=== PATIENT | female | born 1965 | race Caucasian/White ===

== ENCOUNTER 2018-07-23 09:55 | Emergency (ER) | payer OTHER ==
[2018-07-23] MEDS ORDERED: Sodium Chloride 0.9% 2.5 ML Syringe FLUSH PRN (10:05)
[2018-07-23] MEDS ORDERED: Sodium Chloride 0.9% 10 ML Syringe FLUSH PRN (10:05)
[2018-07-23] MEDS ORDERED: Diltiazem 25 MG/5 ML SDV IVPUSH ONE ×3 (10:09→11:36)
[2018-07-23] MEDS ORDERED: Aspirin 81 MG Tab.Chew PO ONE (10:15)
--- NOTE | 2018-07-23 10:15 | EDM.PDOC ---
ED HPI GENERAL MEDICAL PROBLEM - General Chief Complaint: Cardiovascular Problem Stated Complaint: SHORTNESS OF BREATH Time Seen by Provider: 07/23/18 09:58 Source of Information: Reports: Patient History Limitations: Reports: No Limitations - History of Present Illness INITIAL COMMENTS - FREE TEXT/NARRATIVE: History of present illness: []Patient has been complaining of fatigue, shortness of breath, nausea and sweating for the past week. She was seen at [facility] on July 21 and labs were ordered. Labs resulted yesterday and she followed up with Dr. Castillo at [facility] this morning and was found to be in A. fib with rapid ventricular rate in the 140s/150s. She was sent to the ER she arrives here complaining of shortness of breath with minimal exertion which is not normal for her. Patient denies any chest pain, recent illnesses, cough, fevers, chills , nausea, vomiting or diarrhea. She denies any cardiac history but has been treated with propranolol for mild hypertension. She does not take an aspirin a day. Review of systems: As per history of present illness and below otherwise all systems reviewed and negative. Past medical history: As per history of present illness and as reviewed below otherwise noncontributory. Surgical history: As per history of present illness and as reviewed below otherwise noncontributory. Social history: No reported history of drug or alcohol abuse. Family history: As per history of present illness and as reviewed below otherwise noncontributory. Physical exam: General: Well developed, well nourished in NAD HEENT: Atraumatic, normocephalic, pupils reactive, negative for conjunctival pallor or scleral icterus, mucous membranes moist, throat clear, neck supple, nontender, trachea midline. Lungs: Clear to auscultation, breath sounds equal bilaterally, chest nontender. Heart: S1S2, regular, negative for clicks, rubs, or JVD. Abdomen: Soft, nondistended, nontender. Negative for masses or hepatosplenomegaly. Negative for costovertebral tenderness. Pelvis: Stable nontender. Genitourinary: Deferred Rectal: Deferred. Extremities: Atraumatic, negative for cords or calf pain. Neurovascular unremarkable. Neuro: Awake, alert, oriented. Cranial nerves II through XII unremarkable. Cerebellum unremarkable. Motor and sensory unremarkable throughout. Exam nonfocal. Skin:warm and dry Diagnostics: EKG, chest x-ray, BNP, troponin, chemistry Therapeutics: Diltiazem, aspirin ED Course: Improved with rate down to 80s and BP 125/80's Impression: A. fib with rapid ventricular rate Prescriptions: Several toe, diltiazem Plan: Dr. Cabrera was consulted and agrees with plan he will he will follow-up with the patient in 3 days and work her up as needed. Definitive disposition and diagnosis as appropriate pending reevaluation and review of above. - Related Data Allergies Allergy/AdvReac Type Severity Reaction Status Date / Time No Known Allergies Allergy Verified 07/23/18 10:04 Home Meds: Home Meds Multivitamin [Multi-Vitamin Daily] 1 tab PO DAILY 07/27/14 [History] Omeprazole [Prilosec] 1 tab PO BRK 07/27/14 [History] Propranolol [Inderal] 1 tab PO ACBRK 07/27/14 [History] Venlafaxine [Effexor XR] 150 mg PO DAILY 07/27/14 [History] Diltiazem HCl [Dilt-XR] 120 mg PO DAILY #15 cap.er.deg 07/23/18 [Rx] Rivaroxaban [Xarelto] 20 mg PO ACDINNER #15 tablet 07/23/18 [Rx] Past Medical History Cardiovascular History: Reports: Hypertension Gastrointestinal History: Reports: GERD 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 ED EXAM, GENERAL - Physical Exam Exam: See Below (See history of present illness) Course - Vital Signs Last Recorded V/S: Last Vital Signs Temp 95.5 F 07/23/18 10:00 Pulse 108 H 07/23/18 11:21 Resp 16 07/23/18 11:21 BP 125/81 07/23/18 11:21 Pulse Ox 97 07/23/18 11:21 - Orders/Labs/Meds Orders: Active Orders 24 hr Category Date Time Status Cardiac Monitoring [RC] . DIRECTED Care 07/23/18 10:37 Active EKG Documentation Completion [RC] STAT Care 07/23/18 10:05 Active EKG Documentation Completion [RC] STAT Care 07/23/18 11:08 Active Sodium Chloride 0.9% [Saline Flush] Med 07/23/18 10:05 Active 10 ml FLUSH ASDIRECTED PRN Sodium Chloride 0.9% [Saline Flush] Med 07/23/18 10:05 Active 2.5 ml FLUSH ASDIRECTED PRN Saline Lock Insert [OM.PC] Stat Oth 07/23/18 10:05 Ordered Medication Orders Sodium Chloride (Saline Flush) 10 ml FLUSH ASDIRECTED PRN PRN Reason: Keep Vein Open Last Admin: 07/23/18 10:23 Dose: 10 ml Sodium Chloride (Saline Flush) 2.5 ml FLUSH ASDIRECTED PRN PRN Reason: Keep Vein Open Last Admin: 07/23/18 10:23 Dose: 2.5 ml Labs: Laboratory Tests 07/23/18 07/23/18 Range/Units 10:25 10:25 Sodium 142 (136-145) mmol/L Potassium 4.2 (3.5-5.1) mmol/L Chloride 108 H (98-107) mmol/L Carbon Dioxide 22.9 (21.0-32.0) mmol/L BUN 18 (7.0-18.0) mg/dL Creatinine 0.9 (0.6-1.0) mg/dL Est Cr Clr Drug Dosing 74.55 mL/min Estimated GFR (MDRD) > 60.0 ml/min Glucose 121 H (74-106) mg/dL Calcium 10.0 (8.5-10.1) mg/dL Total Bilirubin 0.4 (0.2-1.0) mg/dL AST 24 (15-37) IU/L ALT 57 (14-63) IU/L Alkaline Phosphatase 102 (46-116) U/L Troponin I < 0.050 (0.000-0.056) ng/mL B-Natriuretic Peptide 1106 H (<100) PG/ML Total Protein 7.4 (6.4-8.2) g/dL Albumin 3.8 (3.4-5.0) g/dL Globulin 3.6 H (2.0-3.5) g/dL Albumin/Globulin Ratio 1.1 L (1.3-2.8) Meds: Medications Generic Name Dose Route Start Last Admin Trade Name Freq PRN Reason Stop Dose Admin Sodium Chloride 10 ml 07/23/18 10:05 07/23/18 10:23 Saline Flush FLUSH 10 ml ASDIRECTED PRN Administration Keep Vein Open Sodium Chloride 2.5 ml 07/23/18 10:05 07/23/18 10:23 Saline Flush FLUSH 2.5 ml ASDIRECTED PRN Administration Keep Vein Open Discontinued Medications Generic Name Dose Route Start Last Admin Trade Name Freq PRN Reason Stop Dose Admin Aspirin 324 mg 07/23/18 10:15 07/23/18 10:28 Aspirin PO 07/23/18 10:16 324 mg ONETIME ONE Administration Diltiazem HCl 20 mg 07/23/18 10:09 07/23/18 10:23 Diltiazem IVPUSH 07/23/18 10:10 20 mg ONETIME ONE Administration Diltiazem HCl 15 mg 07/23/18 11:25 07/23/18 11:38 Diltiazem IVPUSH 07/23/18 11:26 Not Given ONETIME ONE Diltiazem HCl 20 mg 07/23/18 11:36 07/23/18 11:37 Diltiazem IVPUSH 07/23/18 11:37 20 mg ONETIME ONE Administration Departure - Departure Time of Disposition: 11:59 Disposition: Home, Self-Care 01 Condition: Good Clinical Impression: Atrial fibrillation with RVR Prescriptions: Diltiazem HCl [Dilt-XR] 120 mg PO DAILY #15 cap.er.deg Rivaroxaban [Xarelto] 20 mg PO ACDINNER #15 tablet Referrals: PCP,None [Primary Care Provider] - Forms: ED Department Discharge Additional Instructions: The following information is given to patients seen in the emergency department who are being discharged to home. This information is to outline your options for follow-up care. We provide all patients seen in our emergency department with a follow-up referral. The need for follow-up, as well as the timing and circumstances, are variable depending upon the specifics of your emergency department visit. If you don't have a primary care physician on staff, we will provide you with a referral. We always advise you to contact your personal physician following an emergency department visit to inform them of the circumstance of the visit and for follow-up with them and/or the need for any referrals to a consulting specialist. The emergency department will also refer you to a specialist when appropriate. This referral assures that you have the opportunity for follow-up care with a specialist. All of these measure are taken in an effort to provide you with optimal care, which includes your follow-up. Under all circumstances we always encourage you to contact your private physician who remains a resource for coordinating your care. When calling for follow-up care, please make the office aware that this follow-up is from your recent emergency room visit. If for any reason you are refused follow-up, please contact the [facility] Emergency Department at and asked to speak to the emergency department charge nurse. Take meds as directed and follow-up with cardiology, return if symptoms worsen or change. [facility] Dr. Drake. [place] [address] [address] [phone] - My Orders Last 24 Hours: My Active Orders 07/23/18 10:05 EKG Documentation Completion [RC] STAT Sodium Chloride 0.9% [Saline Flush] 10 ml FLUSH ASDIRECTED PRN Sodium Chloride 0.9% [Saline Flush] 2.5 ml FLUSH ASDIRECTED PRN Saline Lock Insert [OM.PC] Stat 07/23/18 10:37 Cardiac Monitoring [RC] . DIRECTED 07/23/18 11:08 EKG Documentation Completion [RC] STAT - Assessment/Plan Last 24 Hours: My Active Orders 07/23/18 10:05 EKG Documentation Completion [RC] STAT Sodium Chloride 0.9% [Saline Flush] 10 ml FLUSH ASDIRECTED PRN Sodium Chloride 0.9% [Saline Flush] 2.5 ml FLUSH ASDIRECTED PRN Saline Lock Insert [OM.PC] Stat 07/23/18 10:37 Cardiac Monitoring [RC] . DIRECTED 07/23/18 11:08 EKG Documentation Completion [RC] STAT
[2018-07-23 11:17] LABS: CHLORIDE,CL 108 mmol/L (98-107); SODIUM,NA 142 mmol/L (136-145)
--- NOTE | 2018-07-23 11:30 | CR ---
EXAMINATION: Portable chest radiograph. HISTORY: Shortness of breath. FINDINGS: The trachea is midline. The cardiomediastinal silhouette is within normal limits. No pulmonary infiltrates, effusions or pneumothorax. Osseous structures appear unremarkable. IMPRESSION: No acute cardiopulmonary process.
[2018-07-23 12:22] VITALS: BP 125/76
== END 2018-07-23 12:18 | disposition home or self-care (01) ==
LOC: MW.ED 09:55
DX: I48.91 Unspecified atrial fibrillation (principal); I10 Essential (primary) hypertension; Z79.899 Other long term (current) drug therapy
CPT/HCPCS: 36415; 71045; 80053; 83880; 84484; 93005; 96374; 96375; 99285; A9270; J3490; 99283

== ENCOUNTER 2020-02-08 11:11 | Inpatient (IN) | payer OTHER ==
[2020-02-08] MEDS ORDERED: Diltiazem 25 MG/5 ML SDV IVPUSH ONE ×2 (11:22→14:54)
[2020-02-08] MEDS ORDERED: Diltiazem 25 MG/5 ML SDV ONE ×2 (11:24→15:13)
[2020-02-08 12:14] LABS: BLOOD UREA NITROGEN,BUN 19 mg/dL (7.0-18.0); CARBON DIOXIDE,CO2 25.8 mmol/L (21.0-32.0); CHLORIDE,CL 104 mmol/L (98-107); GLUCOSE RANDOM 114 mg/dL (74-106); POTASSIUM,K 4.3 mmol/L (3.5-5.1); SODIUM,NA 141 mmol/L (136-145)
--- NOTE | 2020-02-08 12:40 | CR ---
Chest: Portable view of the chest was obtained. Comparison: No prior chest imaging is available. Heart size and mediastinum are within normal limits for portable technique. Lungs are clear with no acute parenchymal change. Bony structures are grossly intact. Impression: 1. Nothing acute is appreciated on portable chest x-ray. Diagnostic code #1 This report was dictated in MDT
[2020-02-08] MEDS ORDERED: Diltiazem 125 MG in Sodium Chloride 0.9% 100 ML IV SCH (13:30)
--- NOTE | 2020-02-08 13:34 | EDM.PDOC ---
ED HPI GENERAL MEDICAL PROBLEM - General Chief Complaint: Cardiovascular Problem Stated Complaint: HIGH BP Time Seen by Provider: 02/08/20 11:13 Source of Information: Reports: Patient History Limitations: Reports: No Limitations - History of Present Illness INITIAL COMMENTS - FREE TEXT/NARRATIVE: This 54-year-old female presents to the emergency room with a chief complaint of rapid heart rate and shortness of breath with exertion Onset: Today Duration: Hour(s):, Day(s): (2), Intermittent Location: Reports: Chest Quality: Reports: Other (Not complaining of any chest pain) Worsens with: Reports: None Associated Symptoms: Reports: No Other Symptoms - Related Data Allergies Allergy/AdvReac Type Severity Reaction Status Date / Time No Known Allergies Allergy Verified 02/08/20 11:18 Home Meds: Home Meds Multivitamin [Multi-Vitamin Daily] 1 tab PO DAILY 07/27/14 [History] Omeprazole [Prilosec] 40 tab PO BRK 07/27/14 [History] Venlafaxine [Effexor XR] 150 mg PO DAILY 07/27/14 [History] Furosemide [Lasix] 40 mg PO DAILY 08/02/18 [History] Digoxin [Digox] 125 mcg PO DAILY 30 Days #30 tablet 08/06/18 [Rx] Diltiazem [Cardizem CD] 120 mg PO BID 30 Days #60 cap.cd 08/06/18 [Rx] Enoxaparin [Lovenox] 150 mg SQ BID 5 Days #10 syringe 08/06/18 [Rx] Levothyroxine 25 mcg PO ACBREAKFAST 30 Days #30 tablet 08/06/18 [Rx] Metoprolol Tartrate [Lopressor] 75 mg PO TID 30 Days #270 tablet 08/06/18 [Rx] Warfarin [Coumadin] 3 mg PO DAILY 30 Days #30 tab 08/06/18 [Rx] Past Medical History Cardiovascular History: Reports: Afib, Hypertension, Other (See Below) Other Cardiovascular History: CHF Respiratory History: Reports: Sleep Apnea Gastrointestinal History: Reports: GERD 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: , 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 (See Below) 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 Psychiatric History: Reports: Anxiety, Depression - Infectious Disease History Infectious Disease History: Reports: Chicken Pox - Past Surgical History Cardiovascular Surgical History: Reports: Cardiac Ablation Respiratory Surgical History: Reports: None Female Surgical History: Reports: Hysterectomy Social & Family History - Family History Family Medical History: Noncontributory - Tobacco Use Smoking Status *Q: Never Smoker - Caffeine Use Caffeine Use: Reports: None - Recreational Drug Use Recreational Drug Use: No ED ROS GENERAL - Review of Systems Review Of Systems: See Below Constitutional: Reports: No Symptoms HEENT: Reports: No Symptoms Respiratory: Reports: No Symptoms Cardiovascular: Reports: No Symptoms, Dyspnea on Exertion Endocrine: Reports: No Symptoms GI/Abdominal: Reports: No Symptoms : Reports: No Symptoms Musculoskeletal: Reports: No Symptoms Skin: Reports: No Symptoms Neurological: Reports: No Symptoms Psychiatric: Reports: No Symptoms Hematologic/Lymphatic: Reports: No Symptoms Immunologic: Reports: No Symptoms ED EXAM, GENERAL - Physical Exam Exam: See Below Exam Limited By: No Limitations General Appearance: Alert, WD/WN, No Apparent Distress Eye Exam: Bilateral Eye: Normal Fundi, Normal Inspection Ear Exam: Bilateral Ear: Auricle Normal, Canal Normal Nose: Normal Inspection, Normal Mucosa, No Blood Throat/Mouth: Normal Inspection, Normal Lips Respiratory/Chest: No Respiratory Distress, Lungs Clear, Normal Breath Sounds, No Accessory Muscle Use, Chest Non-Tender Cardiovascular: Normal Peripheral Pulses, Regular Rate, Rhythm, No Edema, No JVD , No Murmur, Irregularly Irregular GI/Abdominal: Normal Bowel Sounds, Soft, Non-Tender Back Exam: Normal Inspection, Full Range of Motion Extremities: Normal Inspection, Normal Range of Motion, Non-Tender Neurological: Alert, Oriented, CN II-XII Intact, Normal Cognition, Normal Gait, Normal Reflexes, No Motor/Sensory Deficits Psychiatric: Normal Affect, Normal Mood Skin Exam: Warm, Dry, Intact, Normal Color Lymphatic: No Adenopathy EKG INTERPRETATION Rhythm: A-Fib (A. fib rate around 130) Course - Vital Signs Last Recorded V/S: Last Vital Signs Temp 97.2 F 02/08/20 11:18 Pulse 130 H 02/08/20 11:35 Resp 18 02/08/20 11:35 BP 150/85 H 02/08/20 11:35 Pulse Ox 96 02/08/20 11:35 - Orders/Labs/Meds Orders: Active Orders 24 hr Category Date Time Status EKG 12 Lead [EKG Documentation Completion] [RC] ROUTINE Care 02/08/20 11:27 Active Diltiazem 125 mg Med 02/08/20 13:30 Active Sodium Chloride 0.9% [Normal Saline] 100 ml IV NOW Medication Orders Diltiazem HCl 125 mg/ Sodium (Chloride) 125 mls @ 5 mls/hr IV NOW GELY; Protocol Labs: Laboratory Tests 02/08/20 02/08/20 02/08/20 Range/Units 11:15 11:15 11:15 WBC 7.73 (4.0-11.0) K/uL RBC 5.24 (4.30-5.90) M/uL Hgb 14.0 (12.0-16.0) g/dL Hct 44.7 (36.0-46.0) % MCV 85.3 (80.0-98.0) fL MCH 26.7 L (27.0-32.0) pg MCHC 31.3 (31.0-37.0) g/dL RDW Std Deviation 47.9 (28.0-62.0) fl RDW Coeff of Saira 15 (11.0-15.0) % Plt Count 345 (150-400) K/uL MPV 10.70 (7.40-12.00) fL Neut % (Auto) 64.3 (48.0-80.0) % Lymph % (Auto) 24.6 (16.0-40.0) % Floyd % (Auto) 7.6 (0.0-15.0) % Eos % (Auto) 3.0 (0.0-7.0) % Baso % (Auto) 0.5 (0.0-1.5) % Neut # (Auto) 5.0 (1.4-5.7) K/uL Lymph # (Auto) 1.9 (0.6-2.4) K/uL Floyd # (Auto) 0.6 (0.0-0.8) K/uL Eos # (Auto) 0.2 (0.0-0.7) K/uL Baso # (Auto) 0.0 (0.0-0.1) K/uL Nucleated RBC % 0.0 /100WBC Nucleated RBCs # 0 K/uL INR 1.00 Sodium 141 (136-145) mmol/L Potassium 4.3 (3.5-5.1) mmol/L Chloride 104 (98-107) mmol/L Carbon Dioxide 25.8 (21.0-32.0) mmol/L BUN 19 H (7.0-18.0) mg/dL Creatinine 1.1 H (0.6-1.0) mg/dL Est Cr Clr Drug Dosing 60.39 mL/min Estimated GFR (MDRD) 51.6 ml/min Glucose 114 H (74-106) mg/dL Calcium 9.4 (8.5-10.1) mg/dL Total Bilirubin 0.3 (0.2-1.0) mg/dL AST 20 (15-37) IU/L ALT 43 (14-63) IU/L Alkaline Phosphatase 107 (46-116) U/L Troponin I < 0.050 (0.000-0.056) ng/mL Total Protein 8.1 (6.4-8.2) g/dL Albumin 4.2 (3.4-5.0) g/dL Globulin 3.9 (2.6-4.0) g/dL Albumin/Globulin Ratio 1.1 (0.9-1.6) Meds: Medications Generic Name Dose Route Start Last Admin Trade Name Freq PRN Reason Stop Dose Admin Diltiazem HCl 125 mg/ Sodium 125 mls @ 5 mls/hr 02/08/20 13:30 Chloride IV NOW GELY Protocol 5 MG/HR Discontinued Medications Generic Name Dose Route Start Last Admin Trade Name Freq PRN Reason Stop Dose Admin Diltiazem HCl 20 mg 02/08/20 11:22 02/08/20 11:31 Diltiazem IVPUSH 02/08/20 11:23 20 mg ONETIME ONE Administration Diltiazem HCl Confirm 02/08/20 11:24 02/08/20 11:34 Diltiazem Administered 02/08/20 11:25 Not Given Dose 25 mg .ROUTE .STK-MED ONE Departure - Departure Time of Disposition: 13:33 Disposition: Admitted As Inpatient 65 Condition: Fair Clinical Impression: Atrial fibrillation with rapid ventricular response Referrals: PCP,Unobtain [Primary Care Provider] - Sepsis Event Note - Evaluation Sepsis Screening Result: No Definite Risk - Focused Exam Vital Signs: Vital Signs Temp Pulse Resp BP Pulse Ox 02/08/20 11:35 130 H 18 150/85 H 96 02/08/20 11:18 97.2 F 138 H 18 193/103 H 97 Date Exam was Performed: 02/08/20 Time Exam was Performed: 13:29 - My Orders Last 24 Hours: My Active Orders 02/08/20 11:27 EKG 12 Lead [EKG Documentation Completion] [RC] ROUTINE 02/08/20 13:30 Diltiazem 125 mg Sodium Chloride 0.9% [Normal Saline] 100 ml IV NOW - Assessment/Plan Last 24 Hours: My Active Orders 02/08/20 11:27 EKG 12 Lead [EKG Documentation Completion] [RC] ROUTINE 02/08/20 13:30 Diltiazem 125 mg Sodium Chloride 0.9% [Normal Saline] 100 ml IV NOW
[2020-02-08] MEDS: Diltiazem 100 MG in Sodium Chloride 0.9% 100 ML IV SCH ×2 (13:54→19:52)
[2020-02-08] MEDS ORDERED: Heparin Sod,Pork In 0.45% Nacl 25,000 UNIT/500 ML IV.SOLN IV SCH ×2 (14:15→15:00)
[2020-02-08] MEDS ORDERED: Albuterol/Ipratropium 3.0-0.5 MG/3 ML Neb Soln NEB PRN (14:17)
--- NOTE | 2020-02-08 14:56 | PCM.HP.2 ---
H&P History of Present Illness - General Date of Service: 02/08/20 Admit Problem/Dx: Admission Diagnosis/Problem Admission Diagnosis/Problem Atrial fibrillation with rapid ventricular response - History of Present Illness Initial Comments - Free Text/Narative: Patient is a 54 y/o F with PMH of Afib s/p ablation 9 months back, HTN, sleep apnea comes in for evaluation of increased pulse rate that was showing on her smart watch and dyspnea on exertion. She states that she started noticing her pulse was higher than usual for past few weeks and today it was worse. In the ER patient was found to be in Afib RVR , with HR in 130s, received IV Cardizem but her HR continued to be high so was eventually started on IV Cardizem Gtt. Patient was formerly on Eliquis before ablation, Denied any chest pain, SOB, Palpitations, dizziness, syncope, N/V/D, abdominal pain, urinary frequency, urinary urgency. Onset of Symptoms: Reports: Gradual Duration of Symptoms: Reports: Day(s): - Related Data Allergies/Adverse Reactions: Allergies Allergy/AdvReac Type Severity Reaction Status Date / Time No Known Allergies Allergy Verified 02/09/20 07:53 Home Medications: Home Meds Multivitamin [Multi-Vitamin Daily] 1 tab PO DAILY 07/27/14 [History] Omeprazole [Prilosec] 40 tab PO BRK 07/27/14 [History] Venlafaxine [Effexor XR] 150 mg PO DAILY 07/27/14 [History] Aspirin [Adult Low Dose Aspirin EC] 81 mg PO DAILY 02/08/20 [History] Diltiazem [Cardizem CD] 120 mg PO DAILY 02/08/20 [History] Flecainide [Tambocor] 100 mg PO Q12H 02/08/20 [History] Levothyroxine Sodium [Synthroid] 25 mcg PO ACBREAKFAST 02/08/20 [History] Melatonin 10 mg PO BEDTIME 02/08/20 [History] Past Medical History Cardiovascular History: Reports: Afib, Hypertension, Other (See Below) Other Cardiovascular History: CHF Respiratory History: Reports: Sleep Apnea Gastrointestinal History: Reports: GER[employer] History: Reports: , Other (See Below) Other OB/BYN History: Hysterectomy Psychiatric History: Reports: Anxiety, Depression - Infectious Disease History Infectious Disease History: Reports: Chicken Pox - Past Surgical History Cardiovascular Surgical History: Reports: Cardiac Ablation Respiratory Surgical History: Reports: None Female Surgical History: Reports: Hysterectomy Social & Family History - Family History Family Medical History: Noncontributory - Tobacco Use Smoking Status *Q: Never Smoker - Caffeine Use Caffeine Use: Reports: None - Recreational Drug Use Recreational Drug Use: No H&P Review of Systems - Review of Systems: Review Of Systems: See Below General: Denies: Fever, Chills HEENT: Denies: Contact Lenses, Dysphasia Pulmonary: Denies: Shortness of Breath, Wheezing, Pleuritic Chest Pain Cardiovascular: Reports: Dyspnea on Exertion. Denies: Chest Pain, Palpitations , Orthopnea, PND Gastrointestinal: Denies: Abdominal Pain, Anorexia, Difficulty Swallowing Genitourinary: Denies: Dysuria, Frequency, Burning Skin: Denies: Cyanosis, Jaundice, Mottled Hematologic/Lymphatic: Denies: Anemia, Easy Bleeding Exam - Exam Exam: See Below - Vital Signs Vital Signs: Last Vital Signs Temp 36.2 C 02/08/20 11:18 Pulse 133 H 02/08/20 13:56 Resp 18 02/08/20 13:56 BP 154/85 H 02/08/20 13:56 Pulse Ox 98 02/08/20 13:56 Weight: 146.964 kg - Exam Quality Assessment: Supplemental Oxygen General: Alert, Oriented Neck: Supple, Trachea Midline Lungs: Clear to Auscultation, Normal Respiratory Effort Cardiovascular: Normal S1, Normal S2, Irregular Rhythm, Tachycardia GI/Abdominal Exam: Normal Bowel Sounds, Soft, Distended Extremities: Normal Inspection, Normal Range of Motion. No: Pedal Edema Peripheral Pulses: 3+: Dorsalis Pedis (L), Dorsalis Pedis (R) - Patient Data Lab Results Last 24 hrs: Laboratory Results - last 24 hr 02/08/20 02/08/20 02/08/20 Range/Units 11:15 11:15 11:15 WBC 7.73 (4.0-11.0) K/uL RBC 5.24 (4.30-5.90) M/uL Hgb 14.0 (12.0-16.0) g/dL Hct 44.7 (36.0-46.0) % MCV 85.3 (80.0-98.0) fL MCH 26.7 L (27.0-32.0) pg MCHC 31.3 (31.0-37.0) g/dL RDW Std Deviation 47.9 (28.0-62.0) fl RDW Coeff of Saira 15 (11.0-15.0) % Plt Count 345 (150-400) K/uL MPV 10.70 (7.40-12.00) fL Neut % (Auto) 64.3 (48.0-80.0) % Lymph % (Auto) 24.6 (16.0-40.0) % Mclean % (Auto) 7.6 (0.0-15.0) % Eos % (Auto) 3.0 (0.0-7.0) % Baso % (Auto) 0.5 (0.0-1.5) % Neut # (Auto) 5.0 (1.4-5.7) K/uL Lymph # (Auto) 1.9 (0.6-2.4) K/uL Mclean # (Auto) 0.6 (0.0-0.8) K/uL Eos # (Auto) 0.2 (0.0-0.7) K/uL Baso # (Auto) 0.0 (0.0-0.1) K/uL Nucleated RBC % 0.0 /100WBC Nucleated RBCs # 0 K/uL INR 1.00 Sodium 141 (136-145) mmol/L Potassium 4.3 (3.5-5.1) mmol/L Chloride 104 (98-107) mmol/L Carbon Dioxide 25.8 (21.0-32.0) mmol/L BUN 19 H (7.0-18.0) mg/dL Creatinine 1.1 H (0.6-1.0) mg/dL Est Cr Clr Drug Dosing 60.39 mL/min Estimated GFR (MDRD) 51.6 ml/min Glucose 114 H (74-106) mg/dL Calcium 9.4 (8.5-10.1) mg/dL Phosphorus (2.6-4.7) mg/dL Magnesium (1.8-2.4) mg/dL Total Bilirubin 0.3 (0.2-1.0) mg/dL AST 20 (15-37) IU/L ALT 43 (14-63) IU/L Alkaline Phosphatase 107 (46-116) U/L Troponin I < 0.050 (0.000-0.056) ng/mL Total Protein 8.1 (6.4-8.2) g/dL Albumin 4.2 (3.4-5.0) g/dL Globulin 3.9 (2.6-4.0) g/dL Albumin/Globulin Ratio 1.1 (0.9-1.6) 02/08/20 Range/Units 11:15 WBC (4.0-11.0) K/uL RBC (4.30-5.90) M/uL Hgb (12.0-16.0) g/dL Hct (36.0-46.0) % MCV (80.0-98.0) fL MCH (27.0-32.0) pg MCHC (31.0-37.0) g/dL RDW Std Deviation (28.0-62.0) fl RDW Coeff of Saira (11.0-15.0) % Plt Count (150-400) K/uL MPV (7.40-12.00) fL Neut % (Auto) (48.0-80.0) % Lymph % (Auto) (16.0-40.0) % Mclean % (Auto) (0.0-15.0) % Eos % (Auto) (0.0-7.0) % Baso % (Auto) (0.0-1.5) % Neut # (Auto) (1.4-5.7) K/uL Lymph # (Auto) (0.6-2.4) K/uL Mclean # (Auto) (0.0-0.8) K/uL Eos # (Auto) (0.0-0.7) K/uL Baso # (Auto) (0.0-0.1) K/uL Nucleated RBC % /100WBC Nucleated RBCs # K/uL INR Sodium (136-145) mmol/L Potassium (3.5-5.1) mmol/L Chloride (98-107) mmol/L Carbon Dioxide (21.0-32.0) mmol/L BUN (7.0-18.0) mg/dL Creatinine (0.6-1.0) mg/dL Est Cr Clr Drug Dosing mL/min Estimated GFR (MDRD) ml/min Glucose (74-106) mg/dL Calcium (8.5-10.1) mg/dL Phosphorus 3.5 (2.6-4.7) mg/dL Magnesium 2.3 (1.8-2.4) mg/dL Total Bilirubin (0.2-1.0) mg/dL AST (15-37) IU/L ALT (14-63) IU/L Alkaline Phosphatase (46-116) U/L Troponin I (0.000-0.056) ng/mL Total Protein (6.4-8.2) g/dL Albumin (3.4-5.0) g/dL Globulin (2.6-4.0) g/dL Albumin/Globulin Ratio (0.9-1.6) Result Diagrams: 02/08/20 11:15 02/09/20 05:52 Sepsis Event Note - Evaluation Sepsis Screening Result: No Definite Risk - Focused Exam Vital Signs: Vital Signs Temp Pulse Resp BP Pulse Ox 02/08/20 13:56 133 H 18 154/85 H 98 02/08/20 11:35 130 H 18 150/85 H 96 02/08/20 11:18 36.2 C 138 H 18 193/103 H 97 Date Exam was Performed: 02/09/20 Time Exam was Performed: 10:57 - Problem List (1) Sleep apnea SNOMED Code(s): 38410126 ICD Code: G47.30 - SLEEP APNEA, UNSPECIFIED Status: Acute Current Visit: Yes (2) HTN (hypertension) SNOMED Code(s): 93113543 ICD Code: I10 - ESSENTIAL (PRIMARY) HYPERTENSION Status: Acute Current Visit: Yes (3) Atrial fibrillation with RVR SNOMED Code(s): 560290586744316 ICD Code: I48.91 - UNSPECIFIED ATRIAL FIBRILLATION Status: Acute Current Visit: Yes Problem List Initiated/Reviewed/Updated: Yes Orders Last 24hrs: Active Orders 24 hr Category Date Time Status Admission Status [Patient Status] [ADT] Stat ADT 02/08/20 13:35 Active Ambulate [RC] ASDIRECTED Care 02/08/20 14:17 Active EKG 12 Lead [EKG Documentation Completion] [RC] ROUTINE Care 02/08/20 11:27 Active Oxygen Therapy [RC] CONTINUOUS Care 02/08/20 14:18 Active Pulse Oximetry [RC] PRN Care 02/08/20 14:18 Active RT Aerosol Therapy [RC] ASDIRECTED Care 02/08/20 14:21 Active VTE/DVT Education [RC] PER UNIT ROUTINE Care 02/08/20 14:18 Active Vital Signs [RC] Q4H Care 02/08/20 14:18 Active Heart Healthy Diet [DIET] Diet 02/08/20 Dinner Active Echo Comp wo Cont [US] Routine Exams 02/08/20 14:22 Ordered TROPONIN I [CHEM] Q3H Lab 02/08/20 14:22 Ordered TROPONIN I [CHEM] Q3H Lab 02/08/20 17:22 Ordered Albuterol/Ipratropium [DuoNeb 3.0-0.5 MG/3 ML] Med 02/08/20 14:17 Active 3 ml NEB Q4HRRT PRN Diltiazem [Cardizem] 100 mg Med 02/08/20 13:45 Active Sodium Chloride 0.9% [Normal Saline] 100 ml IV NOW Heparin Sod,Pork In 0.45% Nacl [Heparin-1/2Ns 25,000 Med 02/08/20 14:15 Active Units/500] 25,000 unit in 500 ml IV TITRATE Resuscitation Status Routine Resus Stat 02/08/20 14:17 Ordered Medication Orders Albuterol/Ipratropium (Duoneb 3.0-0.5 Mg/3 Ml) 3 ml NEB Q4HRRT PRN PRN Reason: Shortness Of Breath/wheezing Diltiazem HCl 100 mg/ Sodium (Chloride) 100 mls @ 5 mls/hr IV NOW GELY; Protocol Last Admin: 02/08/20 13:54 Dose: 5 mg/hr, 5 mls/hr Heparin Sodium/Sodium Chloride (Heparin-1/2ns 25,000 Units/500) 25,000 unit in 500 mls @ 56.4 mls/hr IV TITRATE GELY; Protocol Assessment/Plan Comment:: 54 y/o F admitted for AFib RVR Will cont Cardizem gtt for rate control Will obtain 2D ECHO BP is improving, cont to monitor cont Heparin gtt for anticoagulation Trend Troponin Monitor and replete electrolytes CPAP at night
[2020-02-08] MEDS ORDERED: Heparin Sodium 5,000 Units/ML Vial IVPUSH ONE (15:00)
[2020-02-08 15:23] LABS: HEMOGLOBIN A1C 6.1 % (4.5-6.2)
[2020-02-08] MEDS ORDERED: Diltiazem 25 MG/5 ML SDV IV ONE (15:54)
[2020-02-08] MEDS: Metoprolol Tartrate 50 MG Tab PO SCH ×2 (16:02→21:43)
[2020-02-08] MEDS: Apixaban 5 MG Tab PO SCH ×2 (16:02→21:43)
[2020-02-08] MEDS ORDERED: Metoprolol Tartrate 5 MG/5 ML SDV IVPUSH ONE (17:08)
--- NOTE | 2020-02-08 21:00 | PN ---
THC Physician - Brief Progress CadmAEIRHLWVS52/22/2020 20:49[facility] Jasvir wolff, CASIMIRO - CHRISTOPHERN (KATI) - MYRTLE ROJASDate of Service 02/08/2020 20:49HPI/Events of Note Brief eICU Admit Tsjums17 yo with hx of AF s/p ablation 9 mo ago, CHF, HTN, GERD, MELISSA, Anxie ty / depression Presents with AF with RVRO/E Seen on cameraVSS, NADAF rate controlledDVT Prophylaxis: Hep dripGI Prophylaxis: n/aIssuesAF with RVRDIlt dripRate controlAnrioag Eliquis / Hep dripMorbid ob esityOSAHTNCHFCase reviewed with bedside teamCall with questionsWill followInterventions Major-Arrhyt hmia - evaluation and management 21: 00
[2020-02-08] MEDS ORDERED: Acetaminophen 325 MG Tab PO PRN (22:00)
[2020-02-09] MEDS ORDERED: Diltiazem 100 MG in Sodium Chloride 0.9% 100 ML IV SCH (01:00)
[2020-02-09] MEDS: Metoprolol Tartrate 50 MG Tab PO SCH (06:28)
[2020-02-09 06:32] LABS: CARBON DIOXIDE,CO2 30.8 mmol/L (21.0-32.0); POTASSIUM,K 4.8 mmol/L (3.5-5.1)
[2020-02-09] MEDS ORDERED: Diltiazem 25 MG/5 ML SDV ONE (08:23)
[2020-02-09] MEDS: Apixaban 5 MG Tab PO SCH ×2 (08:42→20:06)
[2020-02-09] MEDS: Diltiazem IR 60 MG Tab PO SCH ×3 (10:06→17:56)
[2020-02-09] MEDS ORDERED: Metoprolol Tartrate 50 MG Tab PO SCH ×2 (10:45→18:00)
[2020-02-09] MEDS ORDERED: Sodium Chloride 0.9% 1,000 ML IV ONE (10:48)
--- NOTE | 2020-02-09 10:57 | PCM.PN ---
- General Info Date of Service: 02/09/20 Admission Dx/Problem (Free Text): Admission Diagnosis/Problem Admission Diagnosis/Problem Atrial fibrillation with rapid ventricular response Subjective Update: no chest pain, no palpitations, no other complaints - Review of Systems General: Denies: Fever, Weakness, Fatigue Pulmonary: Denies: Shortness of Breath, Pleuritic Chest Pain Cardiovascular: Reports: Dyspnea on Exertion. Denies: Chest Pain, Palpitations Gastrointestinal: Denies: Abdominal Pain, Constipation, Decreased Appetite Genitourinary: Denies: Dysuria, Frequency, Burning Musculoskeletal: Denies: Neck Pain, Shoulder Pain, Arm Pain Skin: Denies: Cyanosis, Jaundice, Mottled Neurological: Denies: Confusion, Dizziness, Headache - Patient Data Vitals - Most Recent: Last Vital Signs Temp 36.4 C 02/09/20 07:55 Pulse 88 02/09/20 10:00 Resp 16 02/09/20 10:00 BP 102/60 02/09/20 10:00 Pulse Ox 91 L 02/09/20 10:00 Weight - Most Recent: 146.964 kg I&O - Last 24 Hours: Intake & Output 02/08/20 02/09/20 02/09/20 22:59 06:59 14:59 Intake Total 220 1010 Output Total 600 800 100 Balance -380 210 -100 Lab Results Last 24 Hours: Laboratory Results - last 24 hr 02/08/20 02/08/20 02/08/20 Range/Units 11:15 11:15 11:15 WBC 7.73 (4.0-11.0) K/uL RBC 5.24 (4.30-5.90) M/uL Hgb 14.0 (12.0-16.0) g/dL Hct 44.7 (36.0-46.0) % MCV 85.3 (80.0-98.0) fL MCH 26.7 L (27.0-32.0) pg MCHC 31.3 (31.0-37.0) g/dL RDW Std Deviation 47.9 (28.0-62.0) fl RDW Coeff of Saira 15 (11.0-15.0) % Plt Count 345 (150-400) K/uL MPV 10.70 (7.40-12.00) fL Neut % (Auto) 64.3 (48.0-80.0) % Lymph % (Auto) 24.6 (16.0-40.0) % Overton % (Auto) 7.6 (0.0-15.0) % Eos % (Auto) 3.0 (0.0-7.0) % Baso % (Auto) 0.5 (0.0-1.5) % Neut # (Auto) 5.0 (1.4-5.7) K/uL Lymph # (Auto) 1.9 (0.6-2.4) K/uL Overton # (Auto) 0.6 (0.0-0.8) K/uL Eos # (Auto) 0.2 (0.0-0.7) K/uL Baso # (Auto) 0.0 (0.0-0.1) K/uL Nucleated RBC % 0.0 /100WBC Nucleated RBCs # 0 K/uL INR 1.00 Sodium 141 (136-145) mmol/L Potassium 4.3 (3.5-5.1) mmol/L Chloride 104 (98-107) mmol/L Carbon Dioxide 25.8 (21.0-32.0) mmol/L BUN 19 H (7.0-18.0) mg/dL Creatinine 1.1 H (0.6-1.0) mg/dL Est Cr Clr Drug Dosing 60.39 mL/min Estimated GFR (MDRD) 51.6 ml/min Glucose 114 H (74-106) mg/dL Hemoglobin A1c (4.5-6.2) % Calcium 9.4 (8.5-10.1) mg/dL Phosphorus (2.6-4.7) mg/dL Magnesium (1.8-2.4) mg/dL Total Bilirubin 0.3 (0.2-1.0) mg/dL AST 20 (15-37) IU/L ALT 43 (14-63) IU/L Alkaline Phosphatase 107 (46-116) U/L Troponin I < 0.050 (0.000-0.056) ng/mL Total Protein 8.1 (6.4-8.2) g/dL Albumin 4.2 (3.4-5.0) g/dL Globulin 3.9 (2.6-4.0) g/dL Albumin/Globulin Ratio 1.1 (0.9-1.6) Triglycerides (0-200) mg/dL Cholesterol (50-200) mg/dL LDL Cholesterol, Calc (60-180) mg/dL VLDL Cholesterol (5-55) mg/dL HDL Cholesterol (40-60) mg/dL Cholesterol/HDL Ratio (3.3-6.0) TSH 3rd Generation (0.36-3.74) uIU/mL 02/08/20 02/08/20 02/08/20 Range/Units 11:15 14:36 14:36 WBC (4.0-11.0) K/uL RBC (4.30-5.90) M/uL Hgb (12.0-16.0) g/dL Hct (36.0-46.0) % MCV (80.0-98.0) fL MCH (27.0-32.0) pg MCHC (31.0-37.0) g/dL RDW Std Deviation (28.0-62.0) fl RDW Coeff of Saira (11.0-15.0) % Plt Count (150-400) K/uL MPV (7.40-12.00) fL Neut % (Auto) (48.0-80.0) % Lymph % (Auto) (16.0-40.0) % Overton % (Auto) (0.0-15.0) % Eos % (Auto) (0.0-7.0) % Baso % (Auto) (0.0-1.5) % Neut # (Auto) (1.4-5.7) K/uL Lymph # (Auto) (0.6-2.4) K/uL Overton # (Auto) (0.0-0.8) K/uL Eos # (Auto) (0.0-0.7) K/uL Baso # (Auto) (0.0-0.1) K/uL Nucleated RBC % /100WBC Nucleated RBCs # K/uL INR Sodium (136-145) mmol/L Potassium (3.5-5.1) mmol/L Chloride (98-107) mmol/L Carbon Dioxide (21.0-32.0) mmol/L BUN (7.0-18.0) mg/dL Creatinine (0.6-1.0) mg/dL Est Cr Clr Drug Dosing mL/min Estimated GFR (MDRD) ml/min Glucose (74-106) mg/dL Hemoglobin A1c (4.5-6.2) % Calcium (8.5-10.1) mg/dL Phosphorus 3.5 (2.6-4.7) mg/dL Magnesium 2.3 (1.8-2.4) mg/dL Total Bilirubin (0.2-1.0) mg/dL AST (15-37) IU/L ALT (14-63) IU/L Alkaline Phosphatase (46-116) U/L Troponin I < 0.050 (0.000-0.056) ng/mL Total Protein (6.4-8.2) g/dL Albumin (3.4-5.0) g/dL Globulin (2.6-4.0) g/dL Albumin/Globulin Ratio (0.9-1.6) Triglycerides (0-200) mg/dL Cholesterol (50-200) mg/dL LDL Cholesterol, Calc (60-180) mg/dL VLDL Cholesterol (5-55) mg/dL HDL Cholesterol (40-60) mg/dL Cholesterol/HDL Ratio (3.3-6.0) TSH 3rd Generation 1.63 (0.36-3.74) uIU/mL 02/08/20 02/08/20 02/09/20 Range/Units 14:36 17:17 05:52 WBC (4.0-11.0) K/uL RBC (4.30-5.90) M/uL Hgb (12.0-16.0) g/dL Hct (36.0-46.0) % MCV (80.0-98.0) fL MCH (27.0-32.0) pg MCHC (31.0-37.0) g/dL RDW Std Deviation (28.0-62.0) fl RDW Coeff of Saira (11.0-15.0) % Plt Count (150-400) K/uL MPV (7.40-12.00) fL Neut % (Auto) (48.0-80.0) % Lymph % (Auto) (16.0-40.0) % Overton % (Auto) (0.0-15.0) % Eos % (Auto) (0.0-7.0) % Baso % (Auto) (0.0-1.5) % Neut # (Auto) (1.4-5.7) K/uL Lymph # (Auto) (0.6-2.4) K/uL Overton # (Auto) (0.0-0.8) K/uL Eos # (Auto) (0.0-0.7) K/uL Baso # (Auto) (0.0-0.1) K/uL Nucleated RBC % /100WBC Nucleated RBCs # K/uL INR Sodium 143 (136-145) mmol/L Potassium 4.8 (3.5-5.1) mmol/L Chloride 107 (98-107) mmol/L Carbon Dioxide 30.8 (21.0-32.0) mmol/L BUN 18 (7.0-18.0) mg/dL Creatinine 1.1 H (0.6-1.0) mg/dL Est Cr Clr Drug Dosing 60.39 mL/min Estimated GFR (MDRD) 51.6 ml/min Glucose 109 H (74-106) mg/dL Hemoglobin A1c 6.1 (4.5-6.2) % Calcium 9.2 (8.5-10.1) mg/dL Phosphorus 3.9 (2.6-4.7) mg/dL Magnesium 2.1 (1.8-2.4) mg/dL Total Bilirubin (0.2-1.0) mg/dL AST (15-37) IU/L ALT (14-63) IU/L Alkaline Phosphatase (46-116) U/L Troponin I < 0.050 (0.000-0.056) ng/mL Total Protein (6.4-8.2) g/dL Albumin (3.4-5.0) g/dL Globulin (2.6-4.0) g/dL Albumin/Globulin Ratio (0.9-1.6) Triglycerides 144 (0-200) mg/dL Cholesterol 176 (50-200) mg/dL LDL Cholesterol, Calc 94 (60-180) mg/dL VLDL Cholesterol 28 (5-55) mg/dL HDL Cholesterol 53 (40-60) mg/dL Cholesterol/HDL Ratio 3.3 (3.3-6.0) TSH 3rd Generation (0.36-3.74) uIU/mL Med Orders - Current: Current Medications Acetaminophen (Tylenol) 650 mg PO Q4H PRN PRN Reason: Pain/Fever Last Admin: 02/08/20 22:12 Dose: 650 mg Albuterol/Ipratropium (Duoneb 3.0-0.5 Mg/3 Ml) 3 ml NEB Q4HRRT PRN PRN Reason: Shortness Of Breath/wheezing Apixaban (Eliquis) 5 mg PO BID [facility] Last Admin: 02/09/20 08:42 Dose: 5 mg Aspirin (Halfprin) 81 mg PO DAILY [facility] Diltiazem HCl (Cardizem) 60 mg PO Q6HR [facility] Last Admin: 02/09/20 10:06 Dose: 60 mg Flecainide Acetate (Tambocor) 100 mg PO Q12H GELY Diltiazem HCl 100 mg/ Sodium (Chloride) 100 mls @ 5 mls/hr IV ASDIRECTED [facility]; Protocol Last Titration: 02/09/20 10:03 Dose: 5 mg/hr, 5 mls/hr Sodium Chloride (Normal Saline) 1,000 mls @ 999 mls/hr IV .Bolus ONE Stop: 02/09/20 11:48 Levothyroxine Sodium (Levothyroxine) 25 mcg PO ACBREAKFAST [facility] Metoprolol Tartrate (Lopressor) 50 mg PO Q12H [facility] Multivitamins/Minerals/Vitamin C (Tab-A-Claude) 1 tab PO DAILY [facility] Omeprazole (Omeprazole) 40 mg PO DAILY [facility] Melatonin [Melatonin (] 10 Mg) 1 each PO BEDTIME [facility] Venlafaxine HCl (Effexor Xr) 150 mg PO DAILY [facility] Discontinued Medications Diltiazem HCl (Diltiazem) 20 mg IVPUSH ONETIME ONE Stop: 02/08/20 11:23 Last Admin: 02/08/20 11:31 Dose: 20 mg Diltiazem HCl (Diltiazem) Confirm Administered Dose 25 mg .ROUTE .STK-MED ONE Stop: 02/08/20 11:25 Last Admin: 02/08/20 11:34 Dose: Not Given Diltiazem HCl (Diltiazem) Confirm Administered Dose 25 mg .ROUTE .STK-MED ONE Stop: 02/08/20 15:14 Last Admin: 02/08/20 15:17 Dose: 5 mg Diltiazem HCl (Diltiazem) 5 mg IVPUSH NOW ONE Stop: 02/08/20 14:55 Last Admin: 02/08/20 16:24 Dose: 5 mg Diltiazem HCl (Diltiazem) 5 mg IV NOW ONE Stop: 02/08/20 15:55 Last Admin: 02/08/20 16:26 Dose: 5 mg Diltiazem HCl (Diltiazem) Confirm Administered Dose 25 mg .ROUTE .STK-MED ONE Stop: 02/09/20 08:24 Last Admin: 02/09/20 08:28 Dose: 5 mg Heparin Sodium (Porcine) (Heparin Sodium) 4,000 units IVPUSH ONETIME ONE Stop: 02/08/20 15:01 Last Admin: 02/08/20 16:29 Dose: Not Given Diltiazem HCl 125 mg/ Sodium (Chloride) 125 mls @ 5 mls/hr IV NOW GELY; Protocol Diltiazem HCl 100 mg/ Sodium (Chloride) 100 mls @ 5 mls/hr IV NOW GELY; Protocol Last Titration: 02/09/20 05:24 Dose: 0 mg/hr, 0 mls/hr Heparin Sodium/Sodium Chloride (Heparin-1/2ns 25,000 Units/500) 25,000 unit in 500 mls @ 20 mls/hr IV TITRATE GELY; Protocol Heparin Sodium/Sodium Chloride (Heparin-1/2ns 25,000 Units/500) 25,000 unit in 500 mls @ 19.987 mls/hr IV TITRATE GELY; Protocol Metoprolol Tartrate (Lopressor) 50 mg PO TID GELY Last Admin: 02/09/20 06:28 Dose: 50 mg Metoprolol Tartrate (Lopressor) 5 mg IVPUSH ONETIME ONE Stop: 02/08/20 17:09 Last Admin: 02/08/20 17:27 Dose: 5 mg Metoprolol Tartrate (Lopressor) 50 mg PO Q12H GELY - Exam Quality Assessment: Supplemental Oxygen General: Alert, Oriented, Cooperative Neck: Supple, Trachea Midline Lungs: Clear to Auscultation, Normal Respiratory Effort Cardiovascular: Irregular Rhythm, Tachycardia Extremities: Normal Inspection, Normal Range of Motion Sepsis Event Note - Evaluation Sepsis Screening Result: No Definite Risk - Focused Exam Vital Signs: Vital Signs Temp Pulse Pulse Resp BP BP Pulse Ox 02/09/20 10:00 88 16 102/60 91 L 02/09/20 09:00 20 114/62 92 L 02/09/20 07:55 36.4 C 20 112/86 93 L 02/09/20 07:00 19 112/86 92 L 02/09/20 06:49 02/09/20 06:28 123 H 115/73 02/09/20 06:00 36.9 C 15 115/73 91 L 02/09/20 05:00 11 L 100/65 91 L 02/09/20 04:00 13 105/71 94 L 02/09/20 03:00 11 L 106/61 92 L 02/09/20 02:00 11 L 112/67 94 L 02/09/20 01:00 11 L 109/59 L 94 L 02/09/20 00:00 37.3 C 13 104/75 93 L 02/08/20 23:00 14 110/81 90 L Pulse Ox 02/09/20 10:00 02/09/20 09:00 02/09/20 07:55 02/09/20 07:00 02/09/20 06:49 92 L 02/09/20 06:28 02/09/20 06:00 02/09/20 05:00 02/09/20 04:00 02/09/20 03:00 02/09/20 02:00 02/09/20 01:00 02/09/20 00:00 02/08/20 23:00 Date Exam was Performed: 02/09/20 Time Exam was Performed: 17:46 - Problem List & Annotations (1) Sleep apnea SNOMED Code(s): 27027034 Code(s): G47.30 - SLEEP APNEA, UNSPECIFIED Status: Acute Current Visit: Yes (2) HTN (hypertension) SNOMED Code(s): 74757988 Code(s): I10 - ESSENTIAL (PRIMARY) HYPERTENSION Status: Acute Current Visit: Yes (3) Atrial fibrillation with RVR SNOMED Code(s): 971144201819046 Code(s): I48.91 - UNSPECIFIED ATRIAL FIBRILLATION Status: Acute Current Visit: Yes - Problem List Review Problem List Initiated/Reviewed/Updated: Yes - My Orders Last 24 Hours: My Active Orders 02/08/20 14:17 Ambulate [RC] ASDIRECTED Albuterol/Ipratropium [DuoNeb 3.0-0.5 MG/3 ML] 3 ml NEB Q4HRRT PRN Resuscitation Status Routine 02/08/20 14:18 Oxygen Therapy [RC] CONTINUOUS Pulse Oximetry [RC] PRN VTE/DVT Education [RC] DAILY Vital Signs [RC] Q1H 02/08/20 14:21 RT Aerosol Therapy [RC] ASDIRECTED 02/08/20 15:02 CPAP [RESPCARE] Routine 02/08/20 Dinner Heart Healthy Diet [DIET] 02/09/20 01:00 Diltiazem [Cardizem] 100 mg Sodium Chloride 0.9% [Normal Saline] 100 ml IV ASDIRECTED 02/09/20 10:48 Sodium Chloride 0.9% [Normal Saline] 1,000 ml IV .Bolus 02/09/20 14:22 Echo Comp wo Cont [US] Routine 02/09/20 18:00 Metoprolol Tartrate [Lopressor] 50 mg PO Q12H 02/09/20 21:00 Flecainide [Tambocor] 100 mg PO Q12H Patient's Own Medication [Ptom] 1 each PO BEDTIME 02/10/20 07:30 Levothyroxine 25 mcg PO ACBREAKFAST 02/10/20 09:00 Aspirin [Halfprin] 81 mg PO DAILY Multivitamins [Tab-A-Claude] 1 tab PO DAILY Omeprazole 40 mg PO DAILY Venlafaxine [Effexor XR] 150 mg PO DAILY - Plan Plan:: 54 y/o F admitted for AFib RVR Was off the Cardizem drip overnight and went back to Afib RVR in this will start Digoxin try to wean of diltiazem BP on lower side, will give 1 litre bolus of NS cont metoprolol, f/u obtain 2D ECHO Eliquis for AC Monitor and replete electrolytes CPAP at night
[2020-02-09] MEDS ORDERED: Digoxin 500 MCG/2 ML Amp IVPUSH ONE (13:25)
[2020-02-09] MEDS: Digoxin 500 MCG/2 ML Amp IVPUSH SCH ×2 (16:18→20:06)
[2020-02-09] MEDS ORDERED: Melatonin 3 MG Tab PO SCH (21:00)
[2020-02-09] MEDS ORDERED: Flecainide 100 MG Tab PO SCH (21:00)
[2020-02-09] MEDS ORDERED: Melatonin [Melatonin] 10 MG PO SCH (21:00)
[2020-02-10] MEDS: Digoxin 500 MCG/2 ML Amp IVPUSH SCH ×2 (00:03→04:25)
[2020-02-10] MEDS: Diltiazem IR 60 MG Tab PO SCH (01:02)
[2020-02-10] MEDS ORDERED: Metoprolol Tartrate 50 MG Tab PO SCH (06:00)
[2020-02-10] MEDS ORDERED: Metoprolol Tartrate 25 MG Tab PO SCH (06:00)
[2020-02-10 06:38] LABS: CARBON DIOXIDE,CO2 31.2 mmol/L (21.0-32.0); POTASSIUM,K 4.5 mmol/L (3.5-5.1)
[2020-02-10] MEDS ORDERED: Levothyroxine 25 MCG Tab PO SCH (07:30)
[2020-02-10] MEDS: Apixaban 5 MG Tab PO SCH (08:16)
[2020-02-10 08:20] VITALS: PULSE 70
--- NOTE | 2020-02-10 08:26 | PN ---
[facility] Physician - Brief Progress [id number]/24/2020 08:14[facility] Jasvir Mcclendon, CASIMIRO - INDIRA (KATI) - INDIRA RAMÍREZMYRTLE STERLINGTracyDate of Service 02/10/2020 08:14HPI/Events of Note eICU progress note:54-year-old female with past history of A. fib status post ablation curre ntly admitted to the ICU with A. fib with RVR. Majority of the day yesterday patient has had relativ nga difficult to control atrial fibrillation with multiple attempts to decrease heart rate with AV no tad blockers. Patient was eventually started on digoxin yesterday and seems to have had better contr ol over the last 12 hours. Patient did however have spikes of elevated heart rate with activity but otherwise no other acute events overnight.Patient sitting upright in bed, no acute distress, conversi ng with bedside team.Vital signs reviewed. HR 73Labs/EMR reviewedAfib-Rate better controlled on curr ent regimen with Cardizem 240, Lopressor 12.5 and Digoxin-Recommended Digoxin load of 1.5mg IV-Agree with anticoagulation with Eliquis-Recommend keeping K>4 and Mg>2-Echo done yesterday, read pending. - Can trial diuresis if BP can tolerate today. MELISSA-Continue with CPAP prn sleep.Interventions Major-Arr hythmia - evaluation and management
[2020-02-10] MEDS ORDERED: Digoxin 250 MCG Tab PO SCH (09:00)
[2020-02-10] MEDS ORDERED: Venlafaxine 75 MG Cap.ER PO SCH (09:00)
[2020-02-10] MEDS ORDERED: Aspirin 81 MG Tab.EC PO SCH (09:00)
[2020-02-10] MEDS ORDERED: Diltiazem 120 MG Cap.CD PO SCH (09:00)
[2020-02-10] MEDS ORDERED: Multivitamin Tab PO SCH (09:00)
[2020-02-10] MEDS ORDERED: Omeprazole 20 MG Cap.CR PO SCH (09:00)
[2020-02-10] MEDS ORDERED: Furosemide 20 MG/2 ML VIAL IVPUSH ONE (12:49)
--- NOTE | 2020-02-10 12:58 | PCM.DCSUM1 ---
Discharge Summary - Hospital Course Free Text/Narrative:: Patient is a 54 y/o F with PMH of Afib s/p ablation 9 months back, HTN, sleep apnea comes in for evaluation of increased pulse rate that was showing on her smart watch and dyspnea on exertion. She states that she started noticing her pulse was higher than usual for past few weeks and today it was worse. In the ER patient was found to be in Afib RVR , with HR in 130s, received IV Cardizem but her HR continued to be high so was eventually started on IV Cardizem Gtt. Patient was formerly on Eliquis before ablation, Denied any chest pain, SOB, Palpitations, dizziness, syncope, N/V/D, abdominal pain, urinary frequency, urinary urgency. Patient was started on Eliquis for AC. Patient was on high dose of Cardizem gtt, so had to be augmented with metoprolol and subsequently had to be stared on digoxin, weaned off the Cardizem gtt. 2D ECHO was done as well which was unremarkable. Patient BP was intermittently soft so flecainide was stopped and Metoprolol dose was decreased over next day. Patient was rate controlled and was medically stable for dc and recommended to fu with PCP, - Discharge Data Discharge Date: 02/10/20 Discharge Disposition: Home, Self-Care 01 Condition: Stable - Referral to Home Health Primary Care Physician: PCP Unobtainable - Discharge Diagnosis/Problem(s) (1) Sleep apnea SNOMED Code(s): 15646052 ICD Code: G47.30 - SLEEP APNEA, UNSPECIFIED Status: Acute Current Visit: Yes (2) HTN (hypertension) SNOMED Code(s): 77204157 ICD Code: I10 - ESSENTIAL (PRIMARY) HYPERTENSION Status: Acute Current Visit: Yes (3) Atrial fibrillation with RVR SNOMED Code(s): 420342763389165 ICD Code: I48.91 - UNSPECIFIED ATRIAL FIBRILLATION Status: Acute Current Visit: Yes - Discharge Plan *PRESCRIPTION DRUG MONITORING PROGRAM REVIEWED*: No *COPY OF PRESCRIPTION DRUG MONITORING REPORT IN PATIENT DIONISIO: No Prescriptions/Med Rec: Apixaban [Eliquis] 5 mg PO BID #30 tablet Digoxin 250 mcg PO DAILY #30 tablet Diltiazem [Cardizem CD] 240 mg PO DAILY #30 cap.cd Metoprolol Tartrate [Lopressor] 12.5 mg PO Q12H 30 Days #60 tablet Home Medications: Home Meds Multivitamin [Multi-Vitamin Daily] 1 tab PO DAILY 07/27/14 [History] Omeprazole [Prilosec] 40 tab PO BRK 07/27/14 [History] Venlafaxine [Effexor XR] 150 mg PO DAILY 07/27/14 [History] Aspirin [Adult Low Dose Aspirin EC] 81 mg PO DAILY 02/08/20 [History] Levothyroxine Sodium [Synthroid] 25 mcg PO ACBREAKFAST 02/08/20 [History] Melatonin 10 mg PO BEDTIME 02/08/20 [History] Apixaban [Eliquis] 5 mg PO BID #30 tablet 02/10/20 [Rx] Digoxin 250 mcg PO DAILY #30 tablet 02/10/20 [Rx] Diltiazem [Cardizem CD] 240 mg PO DAILY #30 cap.cd 02/10/20 [Rx] Metoprolol Tartrate [Lopressor] 12.5 mg PO Q12H 30 Days #60 tablet 02/10/20 [Rx] Oxygen Therapy Mode: Room Air Forms: ED Department Discharge Referrals: PCP,Unobtain [Primary Care Provider] - - Discharge Summary/Plan Comment DC Time >30 min.: No - Patient Data Vitals - Most Recent: Last Vital Signs Temp 36.5 C 02/10/20 08:15 Pulse 70 02/10/20 08:19 Resp 12 02/10/20 11:00 BP 126/89 02/10/20 11:00 Pulse Ox 96 02/10/20 11:00 Weight - Most Recent: 146.68 kg I&O - Last 24 hours: Intake & Output 02/09/20 02/10/20 02/10/20 22:59 06:59 14:59 Intake Total 1185 400 Output Total 900 1650 Balance 285 -1250 Lab Results - Last 24 hrs: Laboratory Results - last 24 hr 02/10/20 Range/Units 06:02 Sodium 142 (136-145) mmol/L Potassium 4.5 (3.5-5.1) mmol/L Chloride 106 (98-107) mmol/L Carbon Dioxide 31.2 (21.0-32.0) mmol/L BUN 18 (7.0-18.0) mg/dL Creatinine 1.0 (0.6-1.0) mg/dL Est Cr Clr Drug Dosing 66.19 mL/min Estimated GFR (MDRD) 57.6 ml/min Glucose 107 H (74-106) mg/dL Calcium 9.2 (8.5-10.1) mg/dL Magnesium 2.1 (1.8-2.4) mg/dL Med Orders - Current: Current Medications Acetaminophen (Tylenol) 650 mg PO Q4H PRN PRN Reason: Pain/Fever Last Admin: 02/08/20 22:12 Dose: 650 mg Albuterol/Ipratropium (Duoneb 3.0-0.5 Mg/3 Ml) 3 ml NEB Q4HRRT PRN PRN Reason: Shortness Of Breath/wheezing Apixaban (Eliquis) 5 mg PO BID [facility] Last Admin: 02/10/20 08:16 Dose: 5 mg Digoxin (Lanoxin) 250 mcg PO DAILY [facility] Last Admin: 02/10/20 08:19 Dose: 250 mcg Diltiazem HCl (Cardizem Cd) 240 mg PO DAILY [facility] Last Admin: 02/10/20 08:14 Dose: 240 mg Levothyroxine Sodium (Levothyroxine) 25 mcg PO ACBREAKFAST [facility] Last Admin: 02/10/20 07:03 Dose: Not Given Melatonin (Melatonin) 9 mg PO BEDTIME [facility] Last Admin: 02/09/20 21:28 Dose: 9 mg Metoprolol Tartrate (Lopressor) 12.5 mg PO Q12H [facility] Last Admin: 02/10/20 07:01 Dose: 12.5 mg Multivitamins/Minerals/Vitamin C (Tab-A-Claude) 1 tab PO DAILY [facility] Last Admin: 02/10/20 08:17 Dose: 1 tab Omeprazole (Omeprazole) 40 mg PO DAILY [facility] Last Admin: 02/10/20 08:19 Dose: 40 mg Venlafaxine HCl (Effexor Xr) 150 mg PO DAILY [facility] Last Admin: 02/10/20 08:17 Dose: 150 mg Discontinued Medications Aspirin (Halfprin) 81 mg PO DAILY [facility] Digoxin (Lanoxin) 250 mcg IVPUSH Q4H [facility] Stop: 02/10/20 04:01 Last Admin: 02/10/20 04:25 Dose: 250 mcg Digoxin (Lanoxin) 500 mcg IVPUSH ONETIME ONE Stop: 02/09/20 13:26 Last Admin: 02/09/20 14:00 Dose: 500 mcg Diltiazem HCl (Diltiazem) 20 mg IVPUSH ONETIME ONE Stop: 02/08/20 11:23 Last Admin: 02/08/20 11:31 Dose: 20 mg Diltiazem HCl (Diltiazem) Confirm Administered Dose 25 mg .ROUTE .STK-MED ONE Stop: 02/08/20 11:25 Last Admin: 02/08/20 11:34 Dose: Not Given Diltiazem HCl (Diltiazem) Confirm Administered Dose 25 mg .ROUTE .STK-MED ONE Stop: 02/08/20 15:14 Last Admin: 02/08/20 15:17 Dose: 5 mg Diltiazem HCl (Diltiazem) 5 mg IVPUSH NOW ONE Stop: 02/08/20 14:55 Last Admin: 02/08/20 16:24 Dose: 5 mg Diltiazem HCl (Diltiazem) 5 mg IV NOW ONE Stop: 02/08/20 15:55 Last Admin: 02/08/20 16:26 Dose: 5 mg Diltiazem HCl (Diltiazem) Confirm Administered Dose 25 mg .ROUTE .STK-MED ONE Stop: 02/09/20 08:24 Last Admin: 02/09/20 08:28 Dose: 5 mg Diltiazem HCl (Cardizem) 60 mg PO Q6HR GELY Last Admin: 02/10/20 01:02 Dose: 60 mg Flecainide Acetate (Tambocor) 100 mg PO Q12H G[facility] Furosemide (Lasix) 20 mg IVPUSH ONETIME ONE Stop: 02/10/20 12:50 Heparin Sodium (Porcine) (Heparin Sodium) 4,000 units IVPUSH ONETIME ONE Stop: 02/08/20 15:01 Last Admin: 02/08/20 16:29 Dose: Not Given Diltiazem HCl 125 mg/ Sodium (Chloride) 125 mls @ 5 mls/hr IV NOW GELY; Protocol Diltiazem HCl 100 mg/ Sodium (Chloride) 100 mls @ 5 mls/hr IV NOW GELY; Protocol Last Titration: 02/09/20 05:24 Dose: 0 mg/hr, 0 mls/hr Heparin Sodium/Sodium Chloride (Heparin-1/2ns 25,000 Units/500) 25,000 unit in 500 mls @ 20 mls/hr IV TITRATE GELY; Protocol Heparin Sodium/Sodium Chloride (Heparin-1/2ns 25,000 Units/500) 25,000 unit in 500 mls @ 19.987 mls/hr IV TITRATE GELY; Protocol Diltiazem HCl 100 mg/ Sodium (Chloride) 100 mls @ 5 mls/hr IV ASDIRECTED GELY; Protocol Last Titration: 02/09/20 10:03 Dose: 5 mg/hr, 5 mls/hr Sodium Chloride (Normal Saline) 1,000 mls @ 999 mls/hr IV .Bolus ONE Stop: 02/09/20 11:48 Last Admin: 02/09/20 11:05 Dose: 999 mls/hr Metoprolol Tartrate (Lopressor) 50 mg PO TID GELY Last Admin: 02/09/20 06:28 Dose: 50 mg Metoprolol Tartrate (Lopressor) 5 mg IVPUSH ONETIME ONE Stop: 02/08/20 17:09 Last Admin: 02/08/20 17:27 Dose: 5 mg Metoprolol Tartrate (Lopressor) 50 mg PO Q12H GELY Last Admin: 02/09/20 19:26 Dose: Not Given Metoprolol Tartrate (Lopressor) 50 mg PO Q12H GELY Last Admin: 02/09/20 17:58 Dose: 50 mg Metoprolol Tartrate (Lopressor) 25 mg PO Q12H [facility] Melatonin [Melatonin (] 10 Mg) 1 each PO BEDTIME GELY
[2020-02-10 13:40] VITALS: BP 117/75
[2020-02-11] MEDS ORDERED: Omeprazole 20 MG Cap.CR PO SCH (07:30)
--- NOTE | 2020-02-13 10:58 | ECHO ---
EXAM DATE: 02/08/20 PATIENT'S AGE: 54 The ECHO report can be seen in this patient's EMR (Electronic Medical Record) in the REPORTS section. The report has also been scanned into PACS. DORY
== END 2020-02-10 16:47 | disposition home or self-care (01) | DRG 309 ==
LOC: MW.ED 11:11 → MW.ICU 13:35
PROVIDERS: ADMIT Student in an Organized Health Care Education/Training Program; ATTEND Student in an Organized Health Care Education/Training Program
DX: I48.91 Unspecified atrial fibrillation (principal); I10 Essential (primary) hypertension; Z68.42 Body mass index [BMI] 45.0-49.9, adult; I11.0 Hypertensive heart disease with heart failure; I50.9 Heart failure, unspecified; K21.9 Gastro-esophageal reflux disease without esophagitis; F41.9 Anxiety disorder, unspecified; G47.33 Obstructive sleep apnea (adult) (pediatric); F32.9 Major depressive disorder, single episode, unspecified; E66.01 Morbid (severe) obesity due to excess calories; Z90.710 Acquired absence of both cervix and uterus; Z79.899 Other long term (current) drug therapy; Z79.890 Hormone replacement therapy; Z79.01 Long term (current) use of anticoagulants
CPT/HCPCS: 36415; 71045; 80053; 83735; 84100; 84484; 85025; 85610; 93005; 96374; 99285; J3490; 80048; 80061; 83036; 84443; 93306; 99284; A9270-GY; J1160; J7030; J7050

== ENCOUNTER 2020-12-12 18:29 | Inpatient (IN) | payer OTHER ==
[2020-12-12] MEDS ORDERED: Sodium Chloride 0.9% 1,000 ML IV ONE (18:38)
--- NOTE | 2020-12-12 18:38 | EDM.PDOC ---
ED HPI GENERAL MEDICAL PROBLEM - General Chief Complaint: Cardiovascular Problem Stated Complaint: SOB Time Seen by Provider: 12/12/20 18:36 Source of Information: Reports: Patient History Limitations: Reports: No Limitations - History of Present Illness INITIAL COMMENTS - FREE TEXT/NARRATIVE: HISTORY AND PHYSICAL: History of present illness: Patient is a 55 year old female who presents to the ED with c/o feeling like she is in atrial fibrillation. This morning around 8:30 am she started to feel like her pulse was racing and she became SOB and fatigue with exertion. States the last time she felt like this her "afib was acting up" which required additional medication. History of hypertension, atrial fibrillation, congestive heart failure, and cardiac ablation in 2019. Currently on mediations for afib and takes baby aspirin daily (stopped taking Eliquist in March 2020). Patient denies any fever, chills, headache, change in vision, syncope or near syncope. Denies any chest pain, back pain, hemoptysis or cough. Denies any abdominal pain, nausea, vomiting, diarrhea, constipation or dysuria. Patient has been eating and drinking appropriately. Denies any alcohol or drug abuse. Review of systems: As per history of present illness and below otherwise all systems reviewed and negative. Past medical history: As per history of present illness and as reviewed below otherwise noncontributory. Surgical history: As per history of present illness and as reviewed below otherwise noncontributory. Social history: See social history for further information Family history: As per history of present illness and as reviewed below otherwise noncontributory. Physical exam: General: Well developed and well nourished 55 year old male. Alert and orientated x 3. Nontoxic in appearance and in no acute distress. Vital signs have been reviewed by me. Nursing notes were reviewed. Accompanied by who is at bedside. HEENT: Atraumatic, normocephalic, pupils equal and reactive bilaterally, negative for conjunctival pallor or scleral icterus, mucous membranes moist, throat clear, neck supple, nontender, trachea midline. No drooling or trismus noted. No meningeal signs. No hot potato voice noted. Lungs: Clear to auscultation bilaterally. No wheezes, rales, or rhonchi. Chest nontender. Normal work of breathing, no accessory muscles used. Heart: Tachycardia without overt murmur, gallops, or rubs. No JVD. No peripheral edema. No bruits noted. Abdomen: Soft, nondistended, nontender. Normoactive bowel sounds. Negative for masses or costovertebral tenderness. Skin: Intact, warm, dry. No lesions or rashes noted. Hematologic: No petechiae or purpra. Mucosa appropriate color and normal nail bed color and refill. Extremities: Atraumatic, moves all extremities per self without difficulty or deficits, negative for cords or calf pain. Neurovascular unremarkable. Neuro: Awake, alert, oriented. Cranial nerves II through XII unremarkable. Cerebellum unremarkable. Motor and sensory unremarkable throughout. Exam nonfocal. Psychiatric: Mood and affect are appropriate. Normal thought process. Answering questions appropriately. Notes: *This patient was seen and evaluated during the 2019 SARS-CoV-2 novel coronavirus pandemic period. Community viral transmission is ongoing at time of this encounter and the emergency department is operating under pandemic response procedures. Dr Meyer was involved in this case. Adenosine was given, which slowed the heart rate briefly to reveal flutter waves on rhythm strip. Patient is stable with HR 120-130's, will start Cardizem drip. Cardizem drip was increased to 10mg/hr as it wasn't responding to the starting dose. Will continue to make adjustments. Today's lab work is unremarkable. CXR is unremarkable. I have talked with the patient about today's findings, in addition to providing specific details for plan of care. She is tearful and states she is frustrated with having to go through this "every few months it seems like". VSS. Dr Chacon is agreeable to keeping this patient for further care and management. Reassessment at the time of disposition demonstrates that the patient is in no acute distress. Diagnostics: CBC, CMP, TSH, D.Dimer, Troponin, INR, COVID, CXR, EKG Therapeutics: IV fluids, cardizem drip Impression: Atrial flutter with RVR Plan: ICU inpatient admission Definitive disposition and diagnosis as appropriate pending reevaluation and review of above. - Related Data Allergies Allergy/AdvReac Type Severity Reaction Status Date / Time No Known Allergies Allergy Verified 12/12/20 18:38 Home Meds: Home Meds Multivitamin [Multi-Vitamin Daily] 1 tab PO DAILY 07/27/14 [History] Omeprazole [Prilosec] 40 tab PO BRK 07/27/14 [History] Venlafaxine [Effexor XR] 150 mg PO DAILY 07/27/14 [History] Aspirin [Adult Low Dose Aspirin EC] 81 mg PO DAILY 02/08/20 [History] Melatonin 10 mg PO BEDTIME 02/08/20 [History] Diltiazem [Cardizem CD] 240 mg PO DAILY #30 cap.cd 02/10/20 [Rx] Metoprolol Tartrate [Lopressor] 12.5 mg PO Q12H 30 Days #60 tablet 02/10/20 [Rx] Past Medical History Cardiovascular History: Reports: Afib, Hypertension, Other (See Below) Other Cardiovascular History: CHF Respiratory History: Reports: Sleep Apnea Gastrointestinal History: Reports: GERD OTOLARYNGOLOGY NURSE History: Reports: , Other (See Below) Other OTOLARYNGOLOGY NURSE History: Hysterectomy Psychiatric History: Reports: Anxiety, Depression - Infectious Disease History Infectious Disease History: Reports: Chicken Pox - Past Surgical History HEENT Surgical History: Reports: Other (See Below) Other HEENT Surgeries/Procedures: wisdom teeth removed Cardiovascular Surgical History: Reports: Cardiac Ablation Respiratory Surgical History: Reports: None GI Surgical History: Reports: None Female Surgical History: Reports: Breast Biopsy, Hysterectomy Musculoskeletal Surgical History: Reports: Other (See Below) Other Musculoskeletal Surgeries/Procedures:: L bunion repair Social & Family History - Family History Family Medical History: No Pertinent Family History - Caffeine Use Caffeine Use: Reports: None ED ROS GENERAL - Review of Systems Review Of Systems: Comprehensive ROS is negative, except as noted in HPI. ED EXAM, GENERAL - Physical Exam Exam: See Below (See dictation) Course - Vital Signs Last Recorded V/S: Last Vital Signs Temp 97.7 F 12/12/20 18:30 Pulse 125 H 12/12/20 19:45 Resp 20 12/12/20 19:45 BP 163/87 H 12/12/20 19:45 Pulse Ox 96 12/12/20 19:45 - Orders/Labs/Meds Orders: Active Orders 24 hr Category Date Time Status Admission Status [Patient Status] [ADT] Stat ADT 12/12/20 21:30 Active EKG Documentation Completion [RC] STAT Care 12/12/20 18:38 Active Diltiazem [Cardizem] 100 mg Med 12/12/20 19:45 Active Sodium Chloride 0.9% [Normal Saline] 100 ml IV NOW Medication Orders Diltiazem HCl 100 mg/ Sodium (Chloride) 100 mls @ 5 mls/hr IV NOW GELY; Protocol Last Titration: 12/12/20 20:37 Dose: 10 mg/hr, 10 mls/hr Documented by: Admin: 12/12/20 19:44 Dose: 5 mg/hr, 5 mls/hr Documented by: AIRAM Labs: Laboratory Tests 12/12/20 12/12/20 12/12/20 Range/Units 18:35 18:35 18:35 WBC 9.51 (4.0-11.0) K/uL RBC 5.32 (4.30-5.90) M/uL Hgb 14.4 (12.0-16.0) g/dL Hct 44.8 (36.0-46.0) % MCV 84.2 (80.0-98.0) fL MCH 27.1 (27.0-32.0) pg MCHC 32.1 (31.0-37.0) g/dL RDW Std Deviation 44.6 (28.0-62.0) fl RDW Coeff of Saira 15 (11.0-15.0) % Plt Count 369 (150-400) K/uL MPV 10.40 (7.40-12.00) fL Neut % (Auto) 55.0 (48.0-80.0) % Lymph % (Auto) 33.9 (16.0-40.0) % [facility] % (Auto) 8.3 (0.0-15.0) % Eos % (Auto) 2.5 (0.0-7.0) % Baso % (Auto) 0.3 (0.0-1.5) % Neut # (Auto) 5.2 (1.4-5.7) K/uL Lymph # (Auto) 3.2 H (0.6-2.4) K/uL [facility] # (Auto) 0.8 (0.0-0.8) K/uL Eos # (Auto) 0.2 (0.0-0.7) K/uL Baso # (Auto) 0.0 (0.0-0.1) K/uL Nucleated RBC % 0.0 /100WBC Nucleated RBCs # 0 K/uL INR D-Dimer, Quantitative 0.35 (0.0-0.50) mg/L FEU Sodium 141 (136-145) mmol/L Potassium 3.9 (3.5-5.1) mmol/L Chloride 104 (98-107) mmol/L Carbon Dioxide 24.4 (21.0-32.0) mmol/L BUN 16 (7.0-18.0) mg/dL Creatinine 0.9 (0.6-1.0) mg/dL Est Cr Clr Drug Dosing 72.94 mL/min Estimated GFR (MDRD) > 60.0 ml/min Glucose 97 (74-106) mg/dL Calcium 9.0 (8.5-10.1) mg/dL Total Bilirubin 0.2 (0.2-1.0) mg/dL AST 11 L (15-37) IU/L ALT 29 (14-63) IU/L Alkaline Phosphatase 99 (46-116) U/L Troponin I < 0.050 (0.000-0.056) ng/mL Total Protein 8.2 (6.4-8.2) g/dL Albumin 3.8 (3.4-5.0) g/dL Globulin 4.4 H (2.6-4.0) g/dL Albumin/Globulin Ratio 0.9 (0.9-1.6) TSH 3rd Generation (0.36-3.74) uIU/mL SARS-CoV-2 RNA ([facility]) (NEGATIVE) 12/12/20 12/12/20 12/12/20 Range/Units 18:35 18:35 19:50 WBC (4.0-11.0) K/uL RBC (4.30-5.90) M/uL Hgb (12.0-16.0) g/dL Hct (36.0-46.0) % MCV (80.0-98.0) fL MCH (27.0-32.0) pg MCHC (31.0-37.0) g/dL RDW Std Deviation (28.0-62.0) fl RDW Coeff of Saira (11.0-15.0) % Plt Count (150-400) K/uL MPV (7.40-12.00) fL Neut % (Auto) (48.0-80.0) % Lymph % (Auto) (16.0-40.0) % [facility] % (Auto) (0.0-15.0) % Eos % (Auto) (0.0-7.0) % Baso % (Auto) (0.0-1.5) % Neut # (Auto) (1.4-5.7) K/uL Lymph # (Auto) (0.6-2.4) K/uL [facility] # (Auto) (0.0-0.8) K/uL Eos # (Auto) (0.0-0.7) K/uL Baso # (Auto) (0.0-0.1) K/uL Nucleated RBC % /100WBC Nucleated RBCs # K/uL INR 1.00 D-Dimer, Quantitative (0.0-0.50) mg/L FEU Sodium (136-145) mmol/L Potassium (3.5-5.1) mmol/L Chloride (98-107) mmol/L Carbon Dioxide (21.0-32.0) mmol/L BUN (7.0-18.0) mg/dL Creatinine (0.6-1.0) mg/dL Est Cr Clr Drug Dosing mL/min Estimated GFR (MDRD) ml/min Glucose (74-106) mg/dL Calcium (8.5-10.1) mg/dL Total Bilirubin (0.2-1.0) mg/dL AST (15-37) IU/L ALT (14-63) IU/L Alkaline Phosphatase (46-116) U/L Troponin I (0.000-0.056) ng/mL Total Protein (6.4-8.2) g/dL Albumin (3.4-5.0) g/dL Globulin (2.6-4.0) g/dL Albumin/Globulin Ratio (0.9-1.6) TSH 3rd Generation 3.42 (0.36-3.74) uIU/mL SARS-CoV-2 RNA ([facility]) NEGATIVE (NEGATIVE) Meds: Medications Generic Name Dose Route Start Last Admin Trade Name Freq PRN Reason Stop Dose Admin Diltiazem HCl 100 mg/ Sodium 100 mls @ 5 mls/hr 12/12/20 19:45 12/12/20 20:37 Chloride IV 10 mg/hr NOW GELY 10 mls/hr Titration Protocol 5 MG/HR Discontinued Medications Generic Name Dose Route Start Last Admin Trade Name Babs PRN Reason Stop Dose Admin Adenosine 6 mg 12/12/20 19:01 12/12/20 19:09 Adenocard IVPUSH 12/12/20 19:02 6 mg NOW ONE Administration Adenosine Confirm 12/12/20 19:03 12/12/20 19:09 Adenocard Administered 12/12/20 19:04 Not Given Dose 6 mg .ROUTE .STK-MED ONE Adenosine 12 mg 12/12/20 19:19 12/12/20 19:28 Adenocard IVPUSH 12/12/20 19:20 12 mg NOW ONE Administration Sodium Chloride 1,000 mls @ 999 mls/hr 12/12/20 18:38 12/12/20 18:41 Normal Saline IV 12/12/20 19:38 999 mls/hr STAT ONE Administration Sodium Chloride Confirm 12/12/20 19:41 12/12/20 20:00 Normal Saline Administered 12/12/20 19:42 Not Given Dose 100 mls @ as directed .ROUTE .STK-MED ONE Departure - Departure Time of Disposition: 21:49 Disposition: Admitted As Inpatient 65 Clinical Impression: Atrial flutter with rapid ventricular response [facility] - Forms: ED Department Discharge Sepsis Event Note (ED) - Focused Exam Vital Signs: Vital Signs Temp Pulse Resp BP Pulse Ox 12/12/20 19:45 125 H 20 163/87 H 96 12/12/20 19:15 128 H 20 144/86 H 95 12/12/20 18:30 97.7 F 133 H 24 H 188/114 H 96 - My Orders Last 24 Hours: My Active Orders 12/12/20 18:38 EKG Documentation Completion [RC] STAT 12/12/20 19:45 Diltiazem [Cardizem] 100 mg Sodium Chloride 0.9% [Normal Saline] 100 ml IV NOW 12/12/20 21:30 Admission Status [Patient Status] [ADT] Stat - Assessment/Plan Last 24 Hours: My Active Orders 12/12/20 18:38 EKG Documentation Completion [RC] STAT 12/12/20 19:45 Diltiazem [Cardizem] 100 mg Sodium Chloride 0.9% [Normal Saline] 100 ml IV NOW 12/12/20 21:30 Admission Status [Patient Status] [ADT] Stat
--- NOTE | 2020-12-12 18:40 | PCM.EKG ---
#1 Interpretation EKG Date: 12/12/20 Time: 18:30 Rhythm: Other (sinus tachy) Rate (Beats/Min): 131 QT: Normal
[2020-12-12] MEDS ORDERED: Adenosine 6 MG/2 ML SDV IVPUSH ONE ×2 (19:01→19:19)
[2020-12-12] MEDS ORDERED: Adenosine 6 MG/2 ML SDV ONE (19:03)
[2020-12-12 19:06] LABS: BLOOD UREA NITROGEN,BUN 16 mg/dL (7.0-18.0); CARBON DIOXIDE,CO2 24.4 mmol/L (21.0-32.0); CHLORIDE,CL 104 mmol/L (98-107); GLUCOSE RANDOM 97 mg/dL (74-106); POTASSIUM,K 3.9 mmol/L (3.5-5.1); SODIUM,NA 141 mmol/L (136-145)
--- NOTE | 2020-12-12 19:13 | CR ---
INDICATION: SOB TECHNIQUE: Chest 1 view. COMPARISON: 02/08/20 FINDINGS: Cardiovascular and mediastinum: Heart size and vasculature are normal in caliber and appearance. Mediastinum is within normal limits. Lungs and pleural space: Lungs are clear. No sign of infiltrate or mass. No sign of pleural effusion. No pneumothorax. Bones and soft tissues: No significant findings. IMPRESSION: Unremarkable chest. Dictated by: Joey Daley MD @ 12/12/2020 19:12:29 (Electronically Signed)
[2020-12-12] MEDS ORDERED: Sodium Chloride 0.9% 100 ML ONE (19:41)
[2020-12-12] MEDS: Diltiazem 100 MG in Sodium Chloride 0.9% 100 ML IV SCH (19:44)
--- NOTE | 2020-12-12 21:37 | PCM.SN.2 ---
- Free Text/Narrative Note: EKG: As interpreted by ER physician: Mitch: Nonspecific ST-T wave abnormalities Normal axis No evidence of ST elevation LA Atrial flutter with 2:1 block with a heart rate of 130
[2020-12-12] MEDS ORDERED: Albuterol/Ipratropium 3.0-0.5 MG/3 ML Neb Soln NEB PRN (22:23)
[2020-12-12] MEDS ORDERED: Acetaminophen 325 MG Tab PO PRN (22:23)
[2020-12-12] MEDS ORDERED: Ondansetron 4 MG/2 ML SDV IVPUSH PRN (22:23)
--- NOTE | 2020-12-12 22:23 | PCM.HP.2 ---
H&P History of Present Illness - General Date of Service: 12/12/20 Admit Problem/Dx: Admission Diagnosis/Problem Admission Diagnosis/Problem Atrial flutter with rapid ventricular response - History of Present Illness Initial Comments - Free Text/Narative: Patient is a 55 year old female with PMH of Afib/flutter, HTN, sleep apnea, BMI>40, congestive heart failure??, and cardiac ablation in 2019, depression, sleep apnea on CPAP who presents to the ED with c/o feeling short of breath and weak/fatigued while taking a shower today around 8/30 am. Patient states that its her usual presentation whenever her HR is too high due to AFib/Flutter. Patient states that she checke d her smart watch and looks like she was in afib from last night. Patient states that sfter he d/c in 2019 from here, she follwed up with her mechanical designer in [facility] who resumed her flecanide and increased the dose as well. Patient states they were planning on repeat ablation but she converted to sinus rhtym and has been doing well ever since april 2020. Patient has been weaned off her anticoagulation as well. Denied any medication non compliance, fever, chills, chest pain, N/V abdominal pain, dizziness, syncope. She takes baby aspirin daily (stopped taking Eliquist in March 2020). Patient has been eating and drinking appropriately. Denies any alcohol or drug abuse. Lab work in ER was unremarkbale, received 2 doses of adenosine, EKG showed A flutter, was started on Cardizem gtt eventually . Patient was admitted to ICU for further management. - Related Data Allergies/Adverse Reactions: Allergies Allergy/AdvReac Type Severity Reaction Status Date / Time No Known Allergies Allergy Verified 12/12/20 18:38 Home Medications: Home Meds Multivitamin [Multi-Vitamin Daily] 1 tab PO DAILY 07/27/14 [History] Omeprazole [Prilosec] 40 tab PO BRK 07/27/14 [History] Venlafaxine [Effexor XR] 150 mg PO DAILY 07/27/14 [History] Aspirin [Adult Low Dose Aspirin EC] 81 mg PO DAILY 02/08/20 [History] Melatonin 10 mg PO BEDTIME 02/08/20 [History] Diltiazem [Cardizem CD] 240 mg PO DAILY #30 cap.cd 02/10/20 [Rx] Metoprolol Tartrate [Lopressor] 12.5 mg PO Q12H 30 Days #60 tablet 02/10/20 [Rx] Flecainide [Tambocor] 150 mg PO BID 12/12/20 [History] Past Medical History Cardiovascular History: Reports: Afib, Hypertension, Other (See Below) Other Cardiovascular History: CHF Respiratory History: Reports: Sleep Apnea Gastrointestinal History: Reports: G[employer]D [employer]OR History: Reports: , Other (See Below) Other OB/BYN History: Hysterectomy Psychiatric History: Reports: Anxiety, Depression - Infectious Disease History Infectious Disease History: Reports: Chicken Pox - Past Surgical History HEENT Surgical History: Reports: Other (See Below) Other HEENT Surgeries/Procedures: wisdom teeth removed Cardiovascular Surgical History: Reports: Cardiac Ablation Respiratory Surgical History: Reports: None GI Surgical History: Reports: None Female Surgical History: Reports: Breast Biopsy, Hysterectomy Musculoskeletal Surgical History: Reports: Other (See Below) Other Musculoskeletal Surgeries/Procedures:: L bunion repair Social & Family History - Family History Family Medical History: No Pertinent Family History - Caffeine Use Caffeine Use: Reports: None H&P Review of Systems - Review of Systems: Review Of Systems: See Below General: Reports: Weakness, Fatigue. Denies: Fever, Chills, Malaise Pulmonary: Reports: Shortness of Breath. Denies: Wheezing, Pleuritic Chest Pain Cardiovascular: Reports: Dyspnea on Exertion. Denies: Chest Pain, Palpitations, Orthopnea Gastrointestinal: Denies: Abdominal Pain, Anorexia, Black Stool Genitourinary: Denies: Dysuria, Frequency, Burning Musculoskeletal: Denies: Neck Pain, Shoulder Pain, Arm Pain Skin: Denies: Cyanosis, Jaundice, Mottled Psychiatric: Reports: Depression (controlled on medication). Denies: Confusion, Mood Lability Neurological: Denies: Confusion, Dizziness, Headache, Numbness Hematologic/Lymphatic: Denies: Anemia, Easy Bleeding, Easy Bruising Exam - Exam Exam: See Below - Vital Signs Vital Signs: Last Vital Signs Temp 36.4 C 12/12/20 21:50 Pulse 128 H 12/12/20 21:50 Resp 16 12/12/20 21:50 BP 143/82 H 12/12/20 21:50 Pulse Ox 98 12/12/20 21:50 Weight: 145.15 kg - Exam Quality Assessment: Supplemental Oxygen General: Alert, Oriented Neck: Supple, Trachea Midline Lungs: Clear to Auscultation, Normal Respiratory Effort Cardiovascular: Normal S1, Normal S2, Irregular Rhythm, Tachycardia GI/Abdominal Exam: Normal Bowel Sounds, Soft, Non-Tender - Patient Data Lab Results Last 24 hrs: Laboratory Results - last 24 hr 12/12/20 12/12/20 12/12/20 Range/Units 18:35 18:35 18:35 WBC 9.51 (4.0-11.0) K/uL RBC 5.32 (4.30-5.90) M/uL Hgb 14.4 (12.0-16.0) g/dL Hct 44.8 (36.0-46.0) % MCV 84.2 (80.0-98.0) fL MCH 27.1 (27.0-32.0) pg MCHC 32.1 (31.0-37.0) g/dL RDW Std Deviation 44.6 (28.0-62.0) fl RDW Coeff of Saira 15 (11.0-15.0) % Plt Count 369 (150-400) K/uL MPV 10.40 (7.40-12.00) fL Neut % (Auto) 55.0 (48.0-80.0) % Lymph % (Auto) 33.9 (16.0-40.0) % [place] % (Auto) 8.3 (0.0-15.0) % Eos % (Auto) 2.5 (0.0-7.0) % Baso % (Auto) 0.3 (0.0-1.5) % Neut # (Auto) 5.2 (1.4-5.7) K/uL Lymph # (Auto) 3.2 H (0.6-2.4) K/uL [place] # (Auto) 0.8 (0.0-0.8) K/uL Eos # (Auto) 0.2 (0.0-0.7) K/uL Baso # (Auto) 0.0 (0.0-0.1) K/uL Nucleated RBC % 0.0 /100WBC Nucleated RBCs # 0 K/uL INR D-Dimer, Quantitative 0.35 (0.0-0.50) mg/L FEU Sodium 141 (136-145) mmol/L Potassium 3.9 (3.5-5.1) mmol/L Chloride 104 (98-107) mmol/L Carbon Dioxide 24.4 (21.0-32.0) mmol/L BUN 16 (7.0-18.0) mg/dL Creatinine 0.9 (0.6-1.0) mg/dL Est Cr Clr Drug Dosing 72.94 mL/min Estimated GFR (MDRD) > 60.0 ml/min Glucose 97 (74-106) mg/dL Calcium 9.0 (8.5-10.1) mg/dL Total Bilirubin 0.2 (0.2-1.0) mg/dL AST 11 L (15-37) IU/L ALT 29 (14-63) IU/L Alkaline Phosphatase 99 (46-116) U/L Troponin I < 0.050 (0.000-0.056) ng/mL Total Protein 8.2 (6.4-8.2) g/dL Albumin 3.8 (3.4-5.0) g/dL Globulin 4.4 H (2.6-4.0) g/dL Albumin/Globulin Ratio 0.9 (0.9-1.6) TSH 3rd Generation (0.36-3.74) uIU/mL SARS-CoV-2 RNA (KARMA) (NEGATIVE) 12/12/20 12/12/20 12/12/20 Range/Units 18:35 18:35 19:50 WBC (4.0-11.0) K/uL RBC (4.30-5.90) M/uL Hgb (12.0-16.0) g/dL Hct (36.0-46.0) % MCV (80.0-98.0) fL MCH (27.0-32.0) pg MCHC (31.0-37.0) g/dL RDW Std Deviation (28.0-62.0) fl RDW Coeff of Saira (11.0-15.0) % Plt Count (150-400) K/uL MPV (7.40-12.00) fL Neut % (Auto) (48.0-80.0) % Lymph % (Auto) (16.0-40.0) % [place] % (Auto) (0.0-15.0) % Eos % (Auto) (0.0-7.0) % Baso % (Auto) (0.0-1.5) % Neut # (Auto) (1.4-5.7) K/uL Lymph # (Auto) (0.6-2.4) K/uL [place] # (Auto) (0.0-0.8) K/uL Eos # (Auto) (0.0-0.7) K/uL Baso # (Auto) (0.0-0.1) K/uL Nucleated RBC % /100WBC Nucleated RBCs # K/uL INR 1.00 D-Dimer, Quantitative (0.0-0.50) mg/L FEU Sodium (136-145) mmol/L Potassium (3.5-5.1) mmol/L Chloride (98-107) mmol/L Carbon Dioxide (21.0-32.0) mmol/L BUN (7.0-18.0) mg/dL Creatinine (0.6-1.0) mg/dL Est Cr Clr Drug Dosing mL/min Estimated GFR (MDRD) ml/min Glucose (74-106) mg/dL Calcium (8.5-10.1) mg/dL Total Bilirubin (0.2-1.0) mg/dL AST (15-37) IU/L ALT (14-63) IU/L Alkaline Phosphatase (46-116) U/L Troponin I (0.000-0.056) ng/mL Total Protein (6.4-8.2) g/dL Albumin (3.4-5.0) g/dL Globulin (2.6-4.0) g/dL Albumin/Globulin Ratio (0.9-1.6) TSH 3rd Generation 3.42 (0.36-3.74) uIU/mL SARS-CoV-2 RNA (KARMA) NEGATIVE (NEGATIVE) Result Diagrams: 12/12/20 18:35 12/12/20 18:35 Sepsis Event Note - Evaluation Sepsis Screening Result: No Definite Risk - Focused Exam Vital Signs: Vital Signs Temp Pulse Resp BP Pulse Ox 12/12/20 21:50 36.4 C 128 H 16 143/82 H 98 12/12/20 19:45 125 H 20 163/87 H 96 12/12/20 19:15 128 H 20 144/86 H 95 12/12/20 18:30 36.5 C 133 H 24 H 188/114 H 96 - Problem List (1) BMI 45.0-49.9, adult SNOMED Code(s): 150698081, 771040758 ICD Code: Z68.42 - BODY MASS INDEX [BMI] 45.0-49.9, ADULT Status: Acute Current Visit: Yes (2) Atrial flutter with rapid ventricular response SNOMED Code(s): 3670287, 7487233 ICD Code: I48.92 - UNSPECIFIED ATRIAL FLUTTER Status: Acute Current Visit: Yes (3) Afib SNOMED Code(s): 32439552 ICD Code: I48.91 - UNSPECIFIED ATRIAL FIBRILLATION Status: Acute Current Visit: No (4) Gastroenteritis SNOMED Code(s): 01611947 ICD Code: K52.9 - NONINFECTIVE GASTROENTERITIS AND COLITIS, UNSPECIFIED Status: Acute Current Visit: No (5) HTN (hypertension) SNOMED Code(s): 96858728 ICD Code: I10 - ESSENTIAL (PRIMARY) HYPERTENSION Status: Acute Current Visit: No (6) Sleep apnea SNOMED Code(s): 52629701 ICD Code: G47.30 - SLEEP APNEA, UNSPECIFIED Status: Acute Current Visit: No (7) Depression SNOMED Code(s): 27618904 ICD Code: F32.9 - MAJOR DEPRESSIVE DISORDER, SINGLE EPISODE, UNSPECIFIED Status: Acute Current Visit: Yes Problem List Initiated/Reviewed/Updated: Yes Orders Last 24hrs: Active Orders 24 hr Category Date Time Status Admission Status [Patient Status] [ADT] Stat ADT 12/12/20 21:30 Active EKG Documentation Completion [RC] STAT Care 12/12/20 18:38 Active Diltiazem [Cardizem] 100 mg Med 12/12/20 19:45 Active Sodium Chloride 0.9% [Normal Saline] 100 ml IV NOW Medication Orders Diltiazem HCl 100 mg/ Sodium (Chloride) 100 mls @ 5 mls/hr IV NOW GELY; Protocol Last Titration: 12/12/20 21:52 Dose: 15 mg/hr, 15 mls/hr Documented by: Titration: 12/12/20 20:37 Dose: 10 mg/hr, 10 mls/hr Documented by: Admin: 12/12/20 19:44 Dose: 5 mg/hr, 5 mls/hr Documented by: AIRAM Assessment/Plan Comment:: 55 y/o F admitted for A flutter, RVR no signs of infection or hypoxia, troponin negative cont Cardizem gtt resume home meds for rate control Wean off the gtt as able check Mg, phos, TSH Check UA Obtain 2 D ECHO IV fluids 1 Lt total Lovenox for Anticoagulations for now Will touch base with patients cardiology team in AM since she seems to have recurrent episodes despite optimum treatment Moniotr and replete electrolytes daily as needed
[2020-12-12] MEDS ORDERED: Lactated Ringers 1,000 ML IV SCH (22:30)
--- NOTE | 2020-12-12 23:44 | PN ---
THC Physician - Brief Progress [id number]/24/2021 23:34[facility] Jasvir wolff, CASIMIRO - INDIRA (KATI) - INDIRA MCFAR[place] MYRTLE J.Date of Service 12/12/2020 23:34HPI/Events of Note eICU Admission [id number] F hx of afib RVR admitted to ICU on cardizem gtt for afib RVROn Came ra HR 126 BP 137/90 RR 21 Sats 94%No Acute distressCardizem 15mg/hrLabs reviewed- unremarkableeICU Re commendations:D/w RN- Ericazederrick for now and plan yo transition to home lopressor and flecainideSystemi c anticoagulationOmeprazole for GI prophThank you for allowing us to participate in the care of your patient.Interventions Major-Arrhythmia - evaluation and managementIntermediate-Communication with oth er healthcare providers and/or family 23:4 4
[2020-12-12] MEDS: Flecainide 100 MG Tab PO SCH (23:45)
[2020-12-12] MEDS: Metoprolol Tartrate 25 MG Tab PO SCH (23:45)
[2020-12-12] MEDS: Enoxaparin 150 MG/1 ML Syringe SUBCUT SCH (23:47)
[2020-12-13] MEDS: Diltiazem 100 MG in Sodium Chloride 0.9% 100 ML IV SCH (02:30)
[2020-12-13 05:20] LABS: BLOOD UREA NITROGEN,BUN 10 mg/dL (7.0-18.0); CARBON DIOXIDE,CO2 24.7 mmol/L (21.0-32.0); CHLORIDE,CL 107 mmol/L (98-107); GLUCOSE RANDOM 120 mg/dL (74-106); POTASSIUM,K 4.1 mmol/L (3.5-5.1); SODIUM,NA 143 mmol/L (136-145)
[2020-12-13] MEDS ORDERED: Omeprazole 20 MG Cap.CR PO SCH (07:30)
[2020-12-13] MEDS: Metoprolol Tartrate 25 MG Tab PO SCH (08:06)
[2020-12-13] MEDS: Flecainide 100 MG Tab PO SCH (08:08)
[2020-12-13] MEDS: Enoxaparin 150 MG/1 ML Syringe SUBCUT SCH (08:12)
[2020-12-13] MEDS ORDERED: Aspirin 81 MG Tab.EC PO SCH (09:00)
[2020-12-13] MEDS ORDERED: Diltiazem 120 MG Cap.CD PO SCH (09:00)
[2020-12-13] MEDS ORDERED: Venlafaxine 75 MG Cap.ER PO SCH (09:00)
[2020-12-13] MEDS ORDERED: Multivitamin Tab PO SCH (09:00)
[2020-12-13] MEDS ORDERED: Metoprolol Tartrate 25 MG Tab PO ONE (09:08)
--- NOTE | 2020-12-13 09:22 | PCM.PN ---
- General Info Date of Service: 12/13/20 Admission Dx/Problem (Free Text): Admission Diagnosis/Problem Admission Diagnosis/Problem Atrial flutter with rapid ventricular response - Patient Data Vitals - Most Recent: Last Vital Signs Temp 98.1 F 12/13/20 08:00 Pulse 106 H 12/13/20 08:06 Resp 13 12/13/20 08:00 BP 128/74 12/13/20 08:06 Pulse Ox 93 L 12/13/20 08:00 Weight - Most Recent: 146.51 kg I&O - Last 24 Hours: Intake & Output 12/12/20 12/13/20 12/13/20 22:59 06:59 14:59 Intake Total 1070 Output Total 1700 Balance -630 Lab Results Last 24 Hours: Laboratory Results - last 24 hr 12/12/20 12/12/20 12/12/20 Range/Units 18:35 18:35 18:35 WBC 9.51 (4.0-11.0) K/uL RBC 5.32 (4.30-5.90) M/uL Hgb 14.4 (12.0-16.0) g/dL Hct 44.8 (36.0-46.0) % MCV 84.2 (80.0-98.0) fL MCH 27.1 (27.0-32.0) pg MCHC 32.1 (31.0-37.0) g/dL RDW Std Deviation 44.6 (28.0-62.0) fl RDW Coeff of [place] 15 (11.0-15.0) % Plt Count 369 (150-400) K/uL MPV 10.40 (7.40-12.00) fL Neut % (Auto) 55.0 (48.0-80.0) % Lymph % (Auto) 33.9 (16.0-40.0) % [place] % (Auto) 8.3 (0.0-15.0) % Eos % (Auto) 2.5 (0.0-7.0) % Baso % (Auto) 0.3 (0.0-1.5) % Neut # (Auto) 5.2 (1.4-5.7) K/uL Lymph # (Auto) 3.2 H (0.6-2.4) K/uL [place] # (Auto) 0.8 (0.0-0.8) K/uL Eos # (Auto) 0.2 (0.0-0.7) K/uL Baso # (Auto) 0.0 (0.0-0.1) K/uL Nucleated RBC % 0.0 /100WBC Nucleated RBCs # 0 K/uL INR D-Dimer, Quantitative 0.35 (0.0-0.50) mg/L FEU Sodium 141 (136-145) mmol/L Potassium 3.9 (3.5-5.1) mmol/L Chloride 104 (98-107) mmol/L Carbon Dioxide 24.4 (21.0-32.0) mmol/L BUN 16 (7.0-18.0) mg/dL Creatinine 0.9 (0.6-1.0) mg/dL Est Cr Clr Drug Dosing 72.94 mL/min Estimated GFR (MDRD) > 60.0 ml/min Glucose 97 (74-106) mg/dL Calcium 9.0 (8.5-10.1) mg/dL Phosphorus (2.6-4.7) mg/dL Magnesium (1.8-2.4) mg/dL Total Bilirubin 0.2 (0.2-1.0) mg/dL AST 11 L (15-37) IU/L ALT 29 (14-63) IU/L Alkaline Phosphatase 99 (46-116) U/L Troponin I < 0.050 (0.000-0.056) ng/mL Total Protein 8.2 (6.4-8.2) g/dL Albumin 3.8 (3.4-5.0) g/dL Globulin 4.4 H (2.6-4.0) g/dL Albumin/Globulin Ratio 0.9 (0.9-1.6) TSH 3rd Generation (0.36-3.74) uIU/mL Urine Color Urine Appearance Urine pH (5.0-8.0) Ur Specific [place] (1.001-1.035) Urine Protein (NEGATIVE) mg/dL Urine Glucose (UA) (NEGATIVE) mg/dL Urine Ketones (NEGATIVE) mg/dL Urine Occult Blood (NEGATIVE) Urine Nitrite (NEGATIVE) Urine Bilirubin (NEGATIVE) Urine Urobilinogen (<2.0) EU/dL Ur Leukocyte Esterase (NEGATIVE) SARS-CoV-2 RNA (KARMA) (NEGATIVE) 12/12/20 12/12/20 12/12/20 Range/Units 18:35 18:35 18:35 WBC (4.0-11.0) K/uL RBC (4.30-5.90) M/uL Hgb (12.0-16.0) g/dL Hct (36.0-46.0) % MCV (80.0-98.0) fL MCH (27.0-32.0) pg MCHC (31.0-37.0) g/dL RDW Std Deviation (28.0-62.0) fl RDW Coeff of [place] (11.0-15.0) % Plt Count (150-400) K/uL MPV (7.40-12.00) fL Neut % (Auto) (48.0-80.0) % Lymph % (Auto) (16.0-40.0) % [place] % (Auto) (0.0-15.0) % Eos % (Auto) (0.0-7.0) % Baso % (Auto) (0.0-1.5) % Neut # (Auto) (1.4-5.7) K/uL Lymph # (Auto) (0.6-2.4) K/uL [place] # (Auto) (0.0-0.8) K/uL Eos # (Auto) (0.0-0.7) K/uL Baso # (Auto) (0.0-0.1) K/uL Nucleated RBC % /100WBC Nucleated RBCs # K/uL INR 1.00 D-Dimer, Quantitative (0.0-0.50) mg/L FEU Sodium (136-145) mmol/L Potassium (3.5-5.1) mmol/L Chloride (98-107) mmol/L Carbon Dioxide (21.0-32.0) mmol/L BUN (7.0-18.0) mg/dL Creatinine (0.6-1.0) mg/dL Est Cr Clr Drug Dosing mL/min Estimated GFR (MDRD) ml/min Glucose (74-106) mg/dL Calcium (8.5-10.1) mg/dL Phosphorus 3.6 (2.6-4.7) mg/dL Magnesium 2.0 (1.8-2.4) mg/dL Total Bilirubin (0.2-1.0) mg/dL AST (15-37) IU/L ALT (14-63) IU/L Alkaline Phosphatase (46-116) U/L Troponin I (0.000-0.056) ng/mL Total Protein (6.4-8.2) g/dL Albumin (3.4-5.0) g/dL Globulin (2.6-4.0) g/dL Albumin/Globulin Ratio (0.9-1.6) TSH 3rd Generation 3.42 (0.36-3.74) uIU/mL Urine Color Urine Appearance Urine pH (5.0-8.0) Ur Specific [place] (1.001-1.035) Urine Protein (NEGATIVE) mg/dL Urine Glucose (UA) (NEGATIVE) mg/dL Urine Ketones (NEGATIVE) mg/dL Urine Occult Blood (NEGATIVE) Urine Nitrite (NEGATIVE) Urine Bilirubin (NEGATIVE) Urine Urobilinogen (<2.0) EU/dL Ur Leukocyte Esterase (NEGATIVE) SARS-CoV-2 RNA ([facility]ARMA) (NEGATIVE) 12/12/20 12/12/20 12/13/20 Range/Units 19:50 23:00 00:18 WBC (4.0-11.0) K/uL RBC (4.30-5.90) M/uL Hgb (12.0-16.0) g/dL Hct (36.0-46.0) % MCV (80.0-98.0) fL MCH (27.0-32.0) pg MCHC (31.0-37.0) g/dL RDW Std Deviation (28.0-62.0) fl RDW Coeff of [place] (11.0-15.0) % Plt Count (150-400) K/uL MPV (7.40-12.00) fL Neut % (Auto) (48.0-80.0) % Lymph % (Auto) (16.0-40.0) % [place] % (Auto) (0.0-15.0) % Eos % (Auto) (0.0-7.0) % Baso % (Auto) (0.0-1.5) % Neut # (Auto) (1.4-5.7) K/uL Lymph # (Auto) (0.6-2.4) K/uL [place] # (Auto) (0.0-0.8) K/uL Eos # (Auto) (0.0-0.7) K/uL Baso # (Auto) (0.0-0.1) K/uL Nucleated RBC % /100WBC Nucleated RBCs # K/uL INR D-Dimer, Quantitative (0.0-0.50) mg/L FEU Sodium (136-145) mmol/L Potassium (3.5-5.1) mmol/L Chloride (98-107) mmol/L Carbon Dioxide (21.0-32.0) mmol/L BUN (7.0-18.0) mg/dL Creatinine (0.6-1.0) mg/dL Est Cr Clr Drug Dosing mL/min Estimated GFR (MDRD) ml/min Glucose (74-106) mg/dL Calcium (8.5-10.1) mg/dL Phosphorus (2.6-4.7) mg/dL Magnesium (1.8-2.4) mg/dL Total Bilirubin (0.2-1.0) mg/dL AST (15-37) IU/L ALT (14-63) IU/L Alkaline Phosphatase (46-116) U/L Troponin I < 0.050 (0.000-0.056) ng/mL Total Protein (6.4-8.2) g/dL Albumin (3.4-5.0) g/dL Globulin (2.6-4.0) g/dL Albumin/Globulin Ratio (0.9-1.6) TSH 3rd Generation (0.36-3.74) uIU/mL Urine Color YELLOW Urine Appearance CLEAR Urine pH 5.5 (5.0-8.0) Ur Specific [place] 1.025 (1.001-1.035) Urine Protein NEGATIVE (NEGATIVE) mg/dL Urine Glucose (UA) NEGATIVE (NEGATIVE) mg/dL Urine Ketones NEGATIVE (NEGATIVE) mg/dL Urine Occult Blood NEGATIVE (NEGATIVE) Urine Nitrite NEGATIVE (NEGATIVE) Urine Bilirubin NEGATIVE (NEGATIVE) Urine Urobilinogen 0.2 (<2.0) EU/dL Ur Leukocyte Esterase NEGATIVE (NEGATIVE) SARS-CoV-2 RNA ([facility]MA) NEGATIVE (NEGATIVE) 12/13/20 12/13/20 Range/Units 04:50 04:50 WBC 8.15 (4.0-11.0) K/uL RBC 4.99 (4.30-5.90) M/uL Hgb 13.8 (12.0-16.0) g/dL Hct 42.4 (36.0-46.0) % MCV 85.0 (80.0-98.0) fL MCH 27.7 (27.0-32.0) pg MCHC 32.5 (31.0-37.0) g/dL RDW Std Deviation 45.2 (28.0-62.0) fl RDW Coeff of [place] 15 (11.0-15.0) % Plt Count 311 (150-400) K/uL MPV 10.40 (7.40-12.00) fL Neut % (Auto) 59.5 (48.0-80.0) % Lymph % (Auto) 30.8 (16.0-40.0) % [place] % (Auto) 6.9 (0.0-15.0) % Eos % (Auto) 2.6 (0.0-7.0) % Baso % (Auto) 0.2 (0.0-1.5) % Neut # (Auto) 4.9 (1.4-5.7) K/uL Lymph # (Auto) 2.5 H (0.6-2.4) K/uL [place] # (Auto) 0.6 (0.0-0.8) K/uL Eos # (Auto) 0.2 (0.0-0.7) K/uL Baso # (Auto) 0.0 (0.0-0.1) K/uL Nucleated RBC % 0.0 /100WBC Nucleated RBCs # 0 K/uL INR D-Dimer, Quantitative (0.0-0.50) mg/L FEU Sodium 143 (136-145) mmol/L Potassium 4.1 (3.5-5.1) mmol/L Chloride 107 (98-107) mmol/L Carbon Dioxide 24.7 (21.0-32.0) mmol/L BUN 10 (7.0-18.0) mg/dL Creatinine 0.9 (0.6-1.0) mg/dL Est Cr Clr Drug Dosing 72.94 mL/min Estimated GFR (MDRD) > 60.0 ml/min Glucose 120 H (74-106) mg/dL Calcium 8.9 (8.5-10.1) mg/dL Phosphorus 3.2 (2.6-4.7) mg/dL Magnesium 2.0 (1.8-2.4) mg/dL Total Bilirubin (0.2-1.0) mg/dL AST (15-37) IU/L ALT (14-63) IU/L Alkaline Phosphatase (46-116) U/L Troponin I (0.000-0.056) ng/mL Total Protein (6.4-8.2) g/dL Albumin (3.4-5.0) g/dL Globulin (2.6-4.0) g/dL Albumin/Globulin Ratio (0.9-1.6) TSH 3rd Generation (0.36-3.74) uIU/mL Urine Color Urine Appearance Urine pH (5.0-8.0) Ur Specific [place] (1.001-1.035) Urine Protein (NEGATIVE) mg/dL Urine Glucose (UA) (NEGATIVE) mg/dL Urine Ketones (NEGATIVE) mg/dL Urine Occult Blood (NEGATIVE) Urine Nitrite (NEGATIVE) Urine Bilirubin (NEGATIVE) Urine Urobilinogen (<2.0) EU/dL Ur Leukocyte Esterase (NEGATIVE) SARS-CoV-2 RNA ([facility]) (NEGATIVE) Med Orders - Current: Current Medications Acetaminophen (Tylenol) 650 mg PO Q4H PRN PRN Reason: Pain (Mild 1-3)/fever Last Admin: 12/13/20 07:57 Dose: 650 mg Documented by: Albuterol/Ipratropium (Duoneb 3.0-0.5 Mg/3 Ml) 3 ml NEB Q4HRRT PRN PRN Reason: Shortness Of Breath/wheezing Aspirin (Halfprin) 81 mg PO DAILY [facility] Last Admin: 12/13/20 08:06 Dose: 81 mg Documented by: Diltiazem HCl (Cardizem Cd) 240 mg PO DAILY [facility] Last Admin: 12/13/20 08:05 Dose: 240 mg Documented by: Enoxaparin Sodium (Lovenox) 150 mg SUBCUT Q12HR [facility] Last Admin: 12/13/20 08:12 Dose: 150 mg Documented by: Flecainide Acetate (Tambocor) 150 mg PO BID [facility] Last Admin: 12/13/20 08:08 Dose: 150 mg Documented by: Diltiazem HCl 100 mg/ Sodium (Chloride) 100 mls @ 5 mls/hr IV NOW [facility]; Protocol Last Titration: 12/13/20 08:26 Dose: 5 mg/hr, 5 mls/hr Documented by: Melatonin (Melatonin) 9 mg PO BEDTIME [facility] Metoprolol Tartrate (Lopressor) 12.5 mg PO BID [facility] Last Admin: 12/13/20 08:06 Dose: 12.5 mg Documented by: Multivitamins/Minerals/Vitamin C (Tab-A-Claude) 1 tab PO DAILY [facility] Last Admin: 12/13/20 08:06 Dose: 1 tab Documented by: Omeprazole (Omeprazole) 40 mg PO ACBREAKFAST [facility] Last Admin: 12/13/20 07:55 Dose: 40 mg Documented by: Ondansetron HCl (Zofran) 4 mg IVPUSH Q4H PRN PRN Reason: Nausea/Vomiting Venlafaxine HCl (Effexor Xr) 150 mg PO DAILY [facility] Last Admin: 12/13/20 08:07 Dose: 150 mg Documented by: Discontinued Medications Adenosine (Adenocard) 6 mg IVPUSH NOW ONE Stop: 12/12/20 19:02 Last Admin: 12/12/20 19:09 Dose: 6 mg Documented by: Adenosine (Adenocard) Confirm Administered Dose 6 mg .ROUTE .STK-MED ONE Stop: 12/12/20 19:04 Last Admin: 12/12/20 19:09 Dose: Not Given Documented by: Adenosine (Adenocard) 12 mg IVPUSH NOW ONE Stop: 12/12/20 19:20 Last Admin: 12/12/20 19:28 Dose: 12 mg Documented by: Sodium Chloride (Normal Saline) 1,000 mls @ 999 mls/hr IV STAT ONE Stop: 12/12/20 19:38 Last Admin: 12/12/20 18:41 Dose: 999 mls/hr Documented by: Sodium Chloride (Normal Saline) Confirm Administered Dose 100 mls @ as directed .ROUTE .STK-MED ONE Stop: 12/12/20 19:42 Last Admin: 12/12/20 20:00 Dose: Not Given Documented by: Lactated Ringer's (Ringers, Lactated) 1,000 mls @ 125 mls/hr IV ASDIRECTED [facility] Last Admin: 12/12/20 23:42 Dose: 125 mls/hr Documented by: Metoprolol Tartrate (Lopressor) 12.5 mg PO ONETIME ONE Stop: 12/13/20 09:09 - Patient Data Lab Results Last 24 hrs: Laboratory Results - last 24 hr 12/12/20 12/12/20 12/12/20 Range/Units 18:35 18:35 18:35 WBC 9.51 (4.0-11.0) K/uL RBC 5.32 (4.30-5.90) M/uL Hgb 14.4 (12.0-16.0) g/dL Hct 44.8 (36.0-46.0) % MCV 84.2 (80.0-98.0) fL MCH 27.1 (27.0-32.0) pg MCHC 32.1 (31.0-37.0) g/dL RDW Std Deviation 44.6 (28.0-62.0) fl RDW Coeff of [place] 15 (11.0-15.0) % Plt Count 369 (150-400) K/uL MPV 10.40 (7.40-12.00) fL Neut % (Auto) 55.0 (48.0-80.0) % Lymph % (Auto) 33.9 (16.0-40.0) % [place] % (Auto) 8.3 (0.0-15.0) % Eos % (Auto) 2.5 (0.0-7.0) % Baso % (Auto) 0.3 (0.0-1.5) % Neut # (Auto) 5.2 (1.4-5.7) K/uL Lymph # (Auto) 3.2 H (0.6-2.4) K/uL [place] # (Auto) 0.8 (0.0-0.8) K/uL Eos # (Auto) 0.2 (0.0-0.7) K/uL Baso # (Auto) 0.0 (0.0-0.1) K/uL Nucleated RBC % 0.0 /100WBC Nucleated RBCs # 0 K/uL INR D-Dimer, Quantitative 0.35 (0.0-0.50) mg/L FEU Sodium 141 (136-145) mmol/L Potassium 3.9 (3.5-5.1) mmol/L Chloride 104 (98-107) mmol/L Carbon Dioxide 24.4 (21.0-32.0) mmol/L BUN 16 (7.0-18.0) mg/dL Creatinine 0.9 (0.6-1.0) mg/dL Est Cr Clr Drug Dosing 72.94 mL/min Estimated GFR (MDRD) > 60.0 ml/min Glucose 97 (74-106) mg/dL Calcium 9.0 (8.5-10.1) mg/dL Phosphorus (2.6-4.7) mg/dL Magnesium (1.8-2.4) mg/dL Total Bilirubin 0.2 (0.2-1.0) mg/dL AST 11 L (15-37) IU/L ALT 29 (14-63) IU/L Alkaline Phosphatase 99 (46-116) U/L Troponin I < 0.050 (0.000-0.056) ng/mL Total Protein 8.2 (6.4-8.2) g/dL Albumin 3.8 (3.4-5.0) g/dL Globulin 4.4 H (2.6-4.0) g/dL Albumin/Globulin Ratio 0.9 (0.9-1.6) TSH 3rd Generation (0.36-3.74) uIU/mL Urine Color Urine Appearance Urine pH (5.0-8.0) Ur Specific [place] (1.001-1.035) Urine Protein (NEGATIVE) mg/dL Urine Glucose (UA) (NEGATIVE) mg/dL Urine Ketones (NEGATIVE) mg/dL Urine Occult Blood (NEGATIVE) Urine Nitrite (NEGATIVE) Urine Bilirubin (NEGATIVE) Urine Urobilinogen (<2.0) EU/dL Ur Leukocyte Esterase (NEGATIVE) SARS-CoV-2 RNA ([facility]) (NEGATIVE) 12/12/20 12/12/20 12/12/20 Range/Units 18:35 18:35 18:35 WBC (4.0-11.0) K/uL RBC (4.30-5.90) M/uL Hgb (12.0-16.0) g/dL Hct (36.0-46.0) % MCV (80.0-98.0) fL MCH (27.0-32.0) pg MCHC (31.0-37.0) g/dL RDW Std Deviation (28.0-62.0) fl RDW Coeff of [place] (11.0-15.0) % Plt Count (150-400) K/uL MPV (7.40-12.00) fL Neut % (Auto) (48.0-80.0) % Lymph % (Auto) (16.0-40.0) % [place] % (Auto) (0.0-15.0) % Eos % (Auto) (0.0-7.0) % Baso % (Auto) (0.0-1.5) % Neut # (Auto) (1.4-5.7) K/uL Lymph # (Auto) (0.6-2.4) K/uL [place] # (Auto) (0.0-0.8) K/uL Eos # (Auto) (0.0-0.7) K/uL Baso # (Auto) (0.0-0.1) K/uL Nucleated RBC % /100WBC Nucleated RBCs # K/uL INR 1.00 D-Dimer, Quantitative (0.0-0.50) mg/L FEU Sodium (136-145) mmol/L Potassium (3.5-5.1) mmol/L Chloride (98-107) mmol/L Carbon Dioxide (21.0-32.0) mmol/L BUN (7.0-18.0) mg/dL Creatinine (0.6-1.0) mg/dL Est Cr Clr Drug Dosing mL/min Estimated GFR (MDRD) ml/min Glucose (74-106) mg/dL Calcium (8.5-10.1) mg/dL Phosphorus 3.6 (2.6-4.7) mg/dL Magnesium 2.0 (1.8-2.4) mg/dL Total Bilirubin (0.2-1.0) mg/dL AST (15-37) IU/L ALT (14-63) IU/L Alkaline Phosphatase (46-116) U/L Troponin I (0.000-0.056) ng/mL Total Protein (6.4-8.2) g/dL Albumin (3.4-5.0) g/dL Globulin (2.6-4.0) g/dL Albumin/Globulin Ratio (0.9-1.6) TSH 3rd Generation 3.42 (0.36-3.74) uIU/mL Urine Color Urine Appearance Urine pH (5.0-8.0) Ur Specific [place] (1.001-1.035) Urine Protein (NEGATIVE) mg/dL Urine Glucose (UA) (NEGATIVE) mg/dL Urine Ketones (NEGATIVE) mg/dL Urine Occult Blood (NEGATIVE) Urine Nitrite (NEGATIVE) Urine Bilirubin (NEGATIVE) Urine Urobilinogen (<2.0) EU/dL Ur Leukocyte Esterase (NEGATIVE) SARS-CoV-2 RNA ([facility]) (NEGATIVE) 12/12/20 12/12/20 12/13/20 Range/Units 19:50 23:00 00:18 WBC (4.0-11.0) K/uL RBC (4.30-5.90) M/uL Hgb (12.0-16.0) g/dL Hct (36.0-46.0) % MCV (80.0-98.0) fL MCH (27.0-32.0) pg MCHC (31.0-37.0) g/dL RDW Std Deviation (28.0-62.0) fl RDW Coeff of [place] (11.0-15.0) % Plt Count (150-400) K/uL MPV (7.40-12.00) fL Neut % (Auto) (48.0-80.0) % Lymph % (Auto) (16.0-40.0) % [place] % (Auto) (0.0-15.0) % Eos % (Auto) (0.0-7.0) % Baso % (Auto) (0.0-1.5) % Neut # (Auto) (1.4-5.7) K/uL Lymph # (Auto) (0.6-2.4) K/uL [place] # (Auto) (0.0-0.8) K/uL Eos # (Auto) (0.0-0.7) K/uL Baso # (Auto) (0.0-0.1) K/uL Nucleated RBC % /100WBC Nucleated RBCs # K/uL INR D-Dimer, Quantitative (0.0-0.50) mg/L FEU Sodium (136-145) mmol/L Potassium (3.5-5.1) mmol/L Chloride (98-107) mmol/L Carbon Dioxide (21.0-32.0) mmol/L BUN (7.0-18.0) mg/dL Creatinine (0.6-1.0) mg/dL Est Cr Clr Drug Dosing mL/min Estimated GFR (MDRD) ml/min Glucose (74-106) mg/dL Calcium (8.5-10.1) mg/dL Phosphorus (2.6-4.7) mg/dL Magnesium (1.8-2.4) mg/dL Total Bilirubin (0.2-1.0) mg/dL AST (15-37) IU/L ALT (14-63) IU/L Alkaline Phosphatase (46-116) U/L Troponin I < 0.050 (0.000-0.056) ng/mL Total Protein (6.4-8.2) g/dL Albumin (3.4-5.0) g/dL Globulin (2.6-4.0) g/dL Albumin/Globulin Ratio (0.9-1.6) TSH 3rd Generation (0.36-3.74) uIU/mL Urine Color YELLOW Urine Appearance CLEAR Urine pH 5.5 (5.0-8.0) Ur Specific [place] 1.025 (1.001-1.035) Urine Protein NEGATIVE (NEGATIVE) mg/dL Urine Glucose (UA) NEGATIVE (NEGATIVE) mg/dL Urine Ketones NEGATIVE (NEGATIVE) mg/dL Urine Occult Blood NEGATIVE (NEGATIVE) Urine Nitrite NEGATIVE (NEGATIVE) Urine Bilirubin NEGATIVE (NEGATIVE) Urine Urobilinogen 0.2 (<2.0) EU/dL Ur Leukocyte Esterase NEGATIVE (NEGATIVE) SARS-CoV-2 RNA ([facility]) NEGATIVE (NEGATIVE) 12/13/20 12/13/20 Range/Units 04:50 04:50 WBC 8.15 (4.0-11.0) K/uL RBC 4.99 (4.30-5.90) M/uL Hgb 13.8 (12.0-16.0) g/dL Hct 42.4 (36.0-46.0) % MCV 85.0 (80.0-98.0) fL MCH 27.7 (27.0-32.0) pg MCHC 32.5 (31.0-37.0) g/dL RDW Std Deviation 45.2 (28.0-62.0) fl RDW Coeff of [place] 15 (11.0-15.0) % Plt Count 311 (150-400) K/uL MPV 10.40 (7.40-12.00) fL Neut % (Auto) 59.5 (48.0-80.0) % Lymph % (Auto) 30.8 (16.0-40.0) % [place] % (Auto) 6.9 (0.0-15.0) % Eos % (Auto) 2.6 (0.0-7.0) % Baso % (Auto) 0.2 (0.0-1.5) % Neut # (Auto) 4.9 (1.4-5.7) K/uL Lymph # (Auto) 2.5 H (0.6-2.4) K/uL [place] # (Auto) 0.6 (0.0-0.8) K/uL Eos # (Auto) 0.2 (0.0-0.7) K/uL Baso # (Auto) 0.0 (0.0-0.1) K/uL Nucleated RBC % 0.0 /100WBC Nucleated RBCs # 0 K/uL INR D-Dimer, Quantitative (0.0-0.50) mg/L FEU Sodium 143 (136-145) mmol/L Potassium 4.1 (3.5-5.1) mmol/L Chloride 107 (98-107) mmol/L Carbon Dioxide 24.7 (21.0-32.0) mmol/L BUN 10 (7.0-18.0) mg/dL Creatinine 0.9 (0.6-1.0) mg/dL Est Cr Clr Drug Dosing 72.94 mL/min Estimated GFR (MDRD) > 60.0 ml/min Glucose 120 H (74-106) mg/dL Calcium 8.9 (8.5-10.1) mg/dL Phosphorus 3.2 (2.6-4.7) mg/dL Magnesium 2.0 (1.8-2.4) mg/dL Total Bilirubin (0.2-1.0) mg/dL AST (15-37) IU/L ALT (14-63) IU/L Alkaline Phosphatase (46-116) U/L Troponin I (0.000-0.056) ng/mL Total Protein (6.4-8.2) g/dL Albumin (3.4-5.0) g/dL Globulin (2.6-4.0) g/dL Albumin/Globulin Ratio (0.9-1.6) TSH 3rd Generation (0.36-3.74) uIU/mL Urine Color Urine Appearance Urine pH (5.0-8.0) Ur Specific [place] (1.001-1.035) Urine Protein (NEGATIVE) mg/dL Urine Glucose (UA) (NEGATIVE) mg/dL Urine Ketones (NEGATIVE) mg/dL Urine Occult Blood (NEGATIVE) Urine Nitrite (NEGATIVE) Urine Bilirubin (NEGATIVE) Urine Urobilinogen (<2.0) EU/dL Ur Leukocyte Esterase (NEGATIVE) SARS-CoV-2 RNA (KARMA) (NEGATIVE) Result Diagrams: 12/13/20 04:50 12/13/20 04:50 Sepsis Event Note - Evaluation Sepsis Screening Result: No Definite Risk - Focused Exam Vital Signs: Vital Signs Temp Pulse Pulse Resp BP BP BP 12/13/20 08:06 106 H 128/74 12/13/20 08:05 106 H 115/94 H 12/13/20 08:00 98.1 F 13 115/94 H 12/13/20 07:00 20 137/80 12/13/20 06:07 15 130/83 12/13/20 05:00 14 126/75 12/13/20 04:00 98.5 F 13 118/74 12/13/20 03:00 14 122/73 12/13/20 02:00 13 150/89 H 12/13/20 01:00 12 126/69 12/13/20 00:01 12/13/20 00:00 16 134/83 12/12/20 23:45 120 H 137/90 12/12/20 23:00 17 143/83 H 12/12/20 22:37 98.7 F 16 134/83 12/12/20 21:50 97.5 F 128 H 16 143/82 H Pulse Ox 12/13/20 08:06 12/13/20 08:05 12/13/20 08:00 93 L 12/13/20 07:00 90 L 12/13/20 06:07 92 L 12/13/20 05:00 93 L 12/13/20 04:00 91 L 12/13/20 03:00 93 L 12/13/20 02:00 94 L 12/13/20 01:00 93 L 12/13/20 00:01 95 12/13/20 00:00 95 12/12/20 23:45 12/12/20 23:00 94 L 12/12/20 22:37 94 L 12/12/20 21:50 98 - Plan Plan:: 55 y/o F admitted for A flutter, RVR no signs of infection or hypoxia, troponin negative cont Cardizem gtt resume home meds for rate control Wean off the gtt as able check Mg, phos, TSH Check UA Obtain 2 D ECHO IV fluids 1 Lt total Lovenox for Anticoagulations for now Will touch base with patients cardiology team in AM since she seems to have recurrent episodes despite optimum treatment Moniotr and replete electrolytes daily as needed
[2020-12-13 10:17] VITALS: PULSE 105
[2020-12-13] MEDS ORDERED: Diltiazem 100 MG in Sodium Chloride 0.9% 100 ML IV SCH (12:15)
--- NOTE | 2020-12-13 12:45 | PCM.DCSUM1 ---
Discharge Summary - Hospital Course Brief History: Patient is a 55 year old female with PMH of Afib/flutter, HTN, sleep apnea, BMI>40, congestive heart failure??, and cardiac ablation in 2019, depression, sleep apnea on CPAP who presents to the ED with c/o feeling short of breath and weak/fatigued while taking a shower today around 8/30 am. Patient states that its her usual presentation whenever her HR is too high due to AFib/Flutter. Patient states that she checke d her smart watch and looks like she was in afib from last night. Patient states that sfter he d/c in 2019 from here, she follwed up with her pomology teacher in [facility] who resumed her flecanide and increased the dose as well. Patient states they were planning on repeat ablation but she converted to sinus rhtym and has been doing well ever since april 2020. Patient has been weaned off her anticoagulation as well. Denied any medication non compliance, fever, chills, chest pain, N/V abdominal pain, dizziness, syncope. She takes baby aspirin daily (stopped taking Eliquist in March 2020). Patient has been eating and drinking appropriately. Denies any alcohol or drug abuse. Lab work in ER was unremarkbale, received 2 doses of adenosine, EKG showed A flutter, was started on Cardizem gtt eventually . Patient was admitted to ICU for further managemen Diagnosis: Stroke: No - Discharge Data Discharge Date: 12/13/20 Discharge Disposition: DC/Tfer to Acute Hospital 02 Condition: Stable - Referral to Home Health [facility] Physician: [facility] - Patient Summary/Data Hospital Course: Admission diagnoses A-flutter RVR Discharge diagnoses: A flutter Other PMH: A. fib status post ablation 2019 Off anticoagulation since 2019 HTN Obesity CHF? Jane was admitted secondary to a flutter RVR. She was placed on diltiazem drip in the ER. Overnight she was maintained on diltiazem 15 mg/h with heart rates in the low 100s. This morning she was given all her medications including flecainide 150 mg, metoprolol 25 mg which was increased from 12.5 as home dose. As well as diltiazem 240 mg. Heart rate has been well controlled in the 80s to low 100s she continues to remain in a flutter. This morning I spoke with Dr. Sotelo, EPS pomology teacher at [facility] who is Jane's provider. He agreed with treatment course but due to the length of time she has potentially been in a flutter she needs a LENNOX as well as cardioversion. He requests her to be transferred and agrees with current treatment plan he would like Eliquis 5 mg p.o. twice daily started this evening at 2100. She did have lunch so he is requesting n.p.o. at midnight. I did update Jane and she is very agreeable with this plan and trust what Dr. Sotelo recommends. I then talked to Dr. Barnes, hospitalist at [facility] who kindly accepted patient for transfer. I will transfer Jane this afternoon via [facility]. She is currently weaned off diltiazem drip and heart rates are 80s to 100s. Her last dose of Lovenox was at 8:15 AM this morning. She has no questions or concerns at this time. Dr. Chacon updated on recommendations and agrees with transfer. - Patient Instructions Diet: NPO (at midnight) - Discharge Plan Home Medications: Home Meds Multivitamin [Multi-Vitamin Daily] 1 tab PO DAILY 07/27/14 [History] Omeprazole [Prilosec] 40 tab PO BRK 07/27/14 [History] Venlafaxine [Effexor XR] 150 mg PO DAILY 07/27/14 [History] Aspirin [Adult Low Dose Aspirin EC] 81 mg PO DAILY 02/08/20 [History] Melatonin 10 mg PO BEDTIME 02/08/20 [History] Diltiazem [Cardizem CD] 240 mg PO DAILY #30 cap.cd 02/10/20 [Rx] Metoprolol Tartrate [Lopressor] 12.5 mg PO Q12H 30 Days #60 tablet 02/10/20 [Rx] Flecainide [Tambocor] 150 mg PO BID 12/12/20 [History] Oxygen Therapy Mode: Room Air Referrals: [facility] [Primary Care Provider] - Aline Nick MD [Physician] - - Discharge Summary/Plan Comment DC Time >30 min.: No - Patient Data Vitals - Most Recent: Last Vital Signs Temp 98.6 F 12/13/20 12:00 Pulse 105 H 12/13/20 10:16 Resp 24 H 12/13/20 12:00 BP 115/80 12/13/20 12:00 Pulse Ox 94 L 12/13/20 12:00 Weight - Most Recent: 146.51 kg I&O - Last 24 hours: Intake & Output 12/12/20 12/13/20 12/13/20 22:59 06:59 14:59 Intake Total 1070 120 Output Total 1700 Balance -630 120 Lab Results - Last 24 hrs: Laboratory Results - last 24 hr 12/12/20 12/12/20 12/12/20 Range/Units 18:35 18:35 18:35 WBC 9.51 (4.0-11.0) K/uL RBC 5.32 (4.30-5.90) M/uL Hgb 14.4 (12.0-16.0) g/dL Hct 44.8 (36.0-46.0) % MCV 84.2 (80.0-98.0) fL MCH 27.1 (27.0-32.0) pg MCHC 32.1 (31.0-37.0) g/dL RDW Std Deviation 44.6 (28.0-62.0) fl RDW Coeff of Saira 15 (11.0-15.0) % Plt Count 369 (150-400) K/uL MPV 10.40 (7.40-12.00) fL Neut % (Auto) 55.0 (48.0-80.0) % Lymph % (Auto) 33.9 (16.0-40.0) % [place] % (Auto) 8.3 (0.0-15.0) % Eos % (Auto) 2.5 (0.0-7.0) % Baso % (Auto) 0.3 (0.0-1.5) % Neut # (Auto) 5.2 (1.4-5.7) K/uL Lymph # (Auto) 3.2 H (0.6-2.4) K/uL [place] # (Auto) 0.8 (0.0-0.8) K/uL Eos # (Auto) 0.2 (0.0-0.7) K/uL Baso # (Auto) 0.0 (0.0-0.1) K/uL Nucleated RBC % 0.0 /100WBC Nucleated RBCs # 0 K/uL INR D-Dimer, Quantitative 0.35 (0.0-0.50) mg/L FEU Sodium 141 (136-145) mmol/L Potassium 3.9 (3.5-5.1) mmol/L Chloride 104 (98-107) mmol/L Carbon Dioxide 24.4 (21.0-32.0) mmol/L BUN 16 (7.0-18.0) mg/dL Creatinine 0.9 (0.6-1.0) mg/dL Est Cr Clr Drug Dosing 72.94 mL/min Estimated GFR (MDRD) > 60.0 ml/min Glucose 97 (74-106) mg/dL Calcium 9.0 (8.5-10.1) mg/dL Phosphorus (2.6-4.7) mg/dL Magnesium (1.8-2.4) mg/dL Total Bilirubin 0.2 (0.2-1.0) mg/dL AST 11 L (15-37) IU/L ALT 29 (14-63) IU/L Alkaline Phosphatase 99 (46-116) U/L Troponin I < 0.050 (0.000-0.056) ng/mL Total Protein 8.2 (6.4-8.2) g/dL Albumin 3.8 (3.4-5.0) g/dL Globulin 4.4 H (2.6-4.0) g/dL Albumin/Globulin Ratio 0.9 (0.9-1.6) TSH 3rd Generation (0.36-3.74) uIU/mL Urine Color Urine Appearance Urine pH (5.0-8.0) Ur Specific Gill (1.001-1.035) Urine Protein (NEGATIVE) mg/dL Urine Glucose (UA) (NEGATIVE) mg/dL Urine Ketones (NEGATIVE) mg/dL Urine Occult Blood (NEGATIVE) Urine Nitrite (NEGATIVE) Urine Bilirubin (NEGATIVE) Urine Urobilinogen (<2.0) EU/dL Ur Leukocyte Esterase (NEGATIVE) SARS-CoV-2 RNA (KARMA) (NEGATIVE) 12/12/20 12/12/20 12/12/20 Range/Units 18:35 18:35 18:35 WBC (4.0-11.0) K/uL RBC (4.30-5.90) M/uL Hgb (12.0-16.0) g/dL Hct (36.0-46.0) % MCV (80.0-98.0) fL MCH (27.0-32.0) pg MCHC (31.0-37.0) g/dL RDW Std Deviation (28.0-62.0) fl RDW Coeff of Saira (11.0-15.0) % Plt Count (150-400) K/uL MPV (7.40-12.00) fL Neut % (Auto) (48.0-80.0) % Lymph % (Auto) (16.0-40.0) % [place] % (Auto) (0.0-15.0) % Eos % (Auto) (0.0-7.0) % Baso % (Auto) (0.0-1.5) % Neut # (Auto) (1.4-5.7) K/uL Lymph # (Auto) (0.6-2.4) K/uL [place] # (Auto) (0.0-0.8) K/uL Eos # (Auto) (0.0-0.7) K/uL Baso # (Auto) (0.0-0.1) K/uL Nucleated RBC % /100WBC Nucleated RBCs # K/uL INR 1.00 D-Dimer, Quantitative (0.0-0.50) mg/L FEU Sodium (136-145) mmol/L Potassium (3.5-5.1) mmol/L Chloride (98-107) mmol/L Carbon Dioxide (21.0-32.0) mmol/L BUN (7.0-18.0) mg/dL Creatinine (0.6-1.0) mg/dL Est Cr Clr Drug Dosing mL/min Estimated GFR (MDRD) ml/min Glucose (74-106) mg/dL Calcium (8.5-10.1) mg/dL Phosphorus 3.6 (2.6-4.7) mg/dL Magnesium 2.0 (1.8-2.4) mg/dL Total Bilirubin (0.2-1.0) mg/dL AST (15-37) IU/L ALT (14-63) IU/L Alkaline Phosphatase (46-116) U/L Troponin I (0.000-0.056) ng/mL Total Protein (6.4-8.2) g/dL Albumin (3.4-5.0) g/dL Globulin (2.6-4.0) g/dL Albumin/Globulin Ratio (0.9-1.6) TSH 3rd Generation 3.42 (0.36-3.74) uIU/mL Urine Color Urine Appearance Urine pH (5.0-8.0) Ur Specific Gill (1.001-1.035) Urine Protein (NEGATIVE) mg/dL Urine Glucose (UA) (NEGATIVE) mg/dL Urine Ketones (NEGATIVE) mg/dL Urine Occult Blood (NEGATIVE) Urine Nitrite (NEGATIVE) Urine Bilirubin (NEGATIVE) Urine Urobilinogen (<2.0) EU/dL Ur Leukocyte Esterase (NEGATIVE) SARS-CoV-2 RNA (KARMA) (NEGATIVE) 12/12/20 12/12/20 12/13/20 Range/Units 19:50 23:00 00:18 WBC (4.0-11.0) K/uL RBC (4.30-5.90) M/uL Hgb (12.0-16.0) g/dL Hct (36.0-46.0) % MCV (80.0-98.0) fL MCH (27.0-32.0) pg MCHC (31.0-37.0) g/dL RDW Std Deviation (28.0-62.0) fl RDW Coeff of Saira (11.0-15.0) % Plt Count (150-400) K/uL MPV (7.40-12.00) fL Neut % (Auto) (48.0-80.0) % Lymph % (Auto) (16.0-40.0) % [place] % (Auto) (0.0-15.0) % Eos % (Auto) (0.0-7.0) % Baso % (Auto) (0.0-1.5) % Neut # (Auto) (1.4-5.7) K/uL Lymph # (Auto) (0.6-2.4) K/uL [place] # (Auto) (0.0-0.8) K/uL Eos # (Auto) (0.0-0.7) K/uL Baso # (Auto) (0.0-0.1) K/uL Nucleated RBC % /100WBC Nucleated RBCs # K/uL INR D-Dimer, Quantitative (0.0-0.50) mg/L FEU Sodium (136-145) mmol/L Potassium (3.5-5.1) mmol/L Chloride (98-107) mmol/L Carbon Dioxide (21.0-32.0) mmol/L BUN (7.0-18.0) mg/dL Creatinine (0.6-1.0) mg/dL Est Cr Clr Drug Dosing mL/min Estimated GFR (MDRD) ml/min Glucose (74-106) mg/dL Calcium (8.5-10.1) mg/dL Phosphorus (2.6-4.7) mg/dL Magnesium (1.8-2.4) mg/dL Total Bilirubin (0.2-1.0) mg/dL AST (15-37) IU/L ALT (14-63) IU/L Alkaline Phosphatase (46-116) U/L Troponin I < 0.050 (0.000-0.056) ng/mL Total Protein (6.4-8.2) g/dL Albumin (3.4-5.0) g/dL Globulin (2.6-4.0) g/dL Albumin/Globulin Ratio (0.9-1.6) TSH 3rd Generation (0.36-3.74) uIU/mL Urine Color YELLOW Urine Appearance CLEAR Urine pH 5.5 (5.0-8.0) Ur Specific Gill 1.025 (1.001-1.035) Urine Protein NEGATIVE (NEGATIVE) mg/dL Urine Glucose (UA) NEGATIVE (NEGATIVE) mg/dL Urine Ketones NEGATIVE (NEGATIVE) mg/dL Urine Occult Blood NEGATIVE (NEGATIVE) Urine Nitrite NEGATIVE (NEGATIVE) Urine Bilirubin NEGATIVE (NEGATIVE) Urine Urobilinogen 0.2 (<2.0) EU/dL Ur Leukocyte Esterase NEGATIVE (NEGATIVE) SARS-CoV-2 RNA (KARMA) NEGATIVE (NEGATIVE) 12/13/20 12/13/20 Range/Units 04:50 04:50 WBC 8.15 (4.0-11.0) K/uL RBC 4.99 (4.30-5.90) M/uL Hgb 13.8 (12.0-16.0) g/dL Hct 42.4 (36.0-46.0) % MCV 85.0 (80.0-98.0) fL MCH 27.7 (27.0-32.0) pg MCHC 32.5 (31.0-37.0) g/dL RDW Std Deviation 45.2 (28.0-62.0) fl RDW Coeff of Saira 15 (11.0-15.0) % Plt Count 311 (150-400) K/uL MPV 10.40 (7.40-12.00) fL Neut % (Auto) 59.5 (48.0-80.0) % Lymph % (Auto) 30.8 (16.0-40.0) % [place] % (Auto) 6.9 (0.0-15.0) % Eos % (Auto) 2.6 (0.0-7.0) % Baso % (Auto) 0.2 (0.0-1.5) % Neut # (Auto) 4.9 (1.4-5.7) K/uL Lymph # (Auto) 2.5 H (0.6-2.4) K/uL [place] # (Auto) 0.6 (0.0-0.8) K/uL Eos # (Auto) 0.2 (0.0-0.7) K/uL Baso # (Auto) 0.0 (0.0-0.1) K/uL Nucleated RBC % 0.0 /100WBC Nucleated RBCs # 0 K/uL INR D-Dimer, Quantitative (0.0-0.50) mg/L FEU Sodium 143 (136-145) mmol/L Potassium 4.1 (3.5-5.1) mmol/L Chloride 107 (98-107) mmol/L Carbon Dioxide 24.7 (21.0-32.0) mmol/L BUN 10 (7.0-18.0) mg/dL Creatinine 0.9 (0.6-1.0) mg/dL Est Cr Clr Drug Dosing 72.94 mL/min Estimated GFR (MDRD) > 60.0 ml/min Glucose 120 H (74-106) mg/dL Calcium 8.9 (8.5-10.1) mg/dL Phosphorus 3.2 (2.6-4.7) mg/dL Magnesium 2.0 (1.8-2.4) mg/dL Total Bilirubin (0.2-1.0) mg/dL AST (15-37) IU/L ALT (14-63) IU/L Alkaline Phosphatase (46-116) U/L Troponin I (0.000-0.056) ng/mL Total Protein (6.4-8.2) g/dL Albumin (3.4-5.0) g/dL Globulin (2.6-4.0) g/dL Albumin/Globulin Ratio (0.9-1.6) TSH 3rd Generation (0.36-3.74) uIU/mL Urine Color Urine Appearance Urine pH (5.0-8.0) Ur Specific Gill (1.001-1.035) Urine Protein (NEGATIVE) mg/dL Urine Glucose (UA) (NEGATIVE) mg/dL Urine Ketones (NEGATIVE) mg/dL Urine Occult Blood (NEGATIVE) Urine Nitrite (NEGATIVE) Urine Bilirubin (NEGATIVE) Urine Urobilinogen (<2.0) EU/dL Ur Leukocyte Esterase (NEGATIVE) SARS-CoV-2 RNA (KARMA) (NEGATIVE) Med Orders - Current: Current Medications Acetaminophen (Tylenol) 650 mg PO Q4H PRN PRN Reason: Pain (Mild 1-3)/fever Last Admin: 12/13/20 07:57 Dose: 650 mg Documented by: Albuterol/Ipratropium (Duoneb 3.0-0.5 Mg/3 Ml) 3 ml NEB Q4HRRT PRN PRN Reason: Shortness Of Breath/wheezing Aspirin (Halfprin) 81 mg PO DAILY [facility] Last Admin: 12/13/20 08:06 Dose: 81 mg Documented by: Diltiazem HCl (Cardizem Cd) 240 mg PO DAILY [facility] Last Admin: 12/13/20 08:05 Dose: 240 mg Documented by: Enoxaparin Sodium (Lovenox) 150 mg SUBCUT Q12HR [facility] Last Admin: 12/13/20 08:12 Dose: 150 mg Documented by: Flecainide Acetate (Tambocor) 150 mg PO BID [facility] Last Admin: 12/13/20 08:08 Dose: 150 mg Documented by: Diltiazem HCl 100 mg/ Sodium (Chloride) 100 mls @ 5 mls/hr IV ASDIRECTED [facility]; Protocol Melatonin (Melatonin) 9 mg PO BEDTIME [facility] Metoprolol Tartrate (Lopressor) 12.5 mg PO BID [facility] Last Admin: 12/13/20 08:06 Dose: 12.5 mg Documented by: Multivitamins/Minerals/Vitamin C (Tab-A-Claude) 1 tab PO DAILY [facility] Last Admin: 12/13/20 08:06 Dose: 1 tab Documented by: Omeprazole (Omeprazole) 40 mg PO ACBREAKFAST [facility] Last Admin: 12/13/20 07:55 Dose: 40 mg Documented by: Ondansetron HCl (Zofran) 4 mg IVPUSH Q4H PRN PRN Reason: Nausea/Vomiting Venlafaxine HCl (Effexor Xr) 150 mg PO DAILY [facility] Last Admin: 12/13/20 08:07 Dose: 150 mg Documented by: Discontinued Medications Adenosine (Adenocard) 6 mg IVPUSH NOW ONE Stop: 12/12/20 19:02 Last Admin: 12/12/20 19:09 Dose: 6 mg Documented by: Adenosine (Adenocard) Confirm Administered Dose 6 mg .ROUTE .STK-MED ONE Stop: 12/12/20 19:04 Last Admin: 12/12/20 19:09 Dose: Not Given Documented by: Adenosine (Adenocard) 12 mg IVPUSH NOW ONE Stop: 12/12/20 19:20 Last Admin: 12/12/20 19:28 Dose: 12 mg Documented by: Sodium Chloride (Normal Saline) 1,000 mls @ 999 mls/hr IV STAT ONE Stop: 12/12/20 19:38 Last Admin: 12/12/20 18:41 Dose: 999 mls/hr Documented by: Diltiazem HCl 100 mg/ Sodium (Chloride) 100 mls @ 5 mls/hr IV NOW [facility]; Protocol Last Titration: 12/13/20 08:26 Dose: 5 mg/hr, 5 mls/hr Documented by: Sodium Chloride (Normal Saline) Confirm Administered Dose 100 mls @ as directed .ROUTE .STK-MED ONE Stop: 12/12/20 19:42 Last Admin: 12/12/20 20:00 Dose: Not Given Documented by: Lactated Ringer's (Ringers, Lactated) 1,000 mls @ 125 mls/hr IV ASDIRECTED [facility] Last Admin: 12/12/20 23:42 Dose: 125 mls/hr Documented by: Metoprolol Tartrate (Lopressor) 12.5 mg PO ONETIME ONE Stop: 12/13/20 09:09 Last Admin: 12/13/20 10:16 Dose: 12.5 mg Documented by: - Exam General: Reports: Alert, Oriented, Cooperative, No Acute Distress Lungs: Reports: Clear to Auscultation, Normal Respiratory Effort Cardiovascular: Reports: Regular Rate, Irregular Rhythm GI/Abdominal Exam: Normal Bowel Sounds, Soft, Non-Tender Extremities: Normal Inspection, Normal Range of Motion, Non-Tender, No Pedal Edema Neurological: Reports: No New Focal Deficit Psy/Mental Status: Reports: Alert, Normal Affect, Normal Mood
[2020-12-13 14:36] VITALS: BP 135/78
[2020-12-13] MEDS ORDERED: Melatonin 3 MG Tab PO SCH (21:00)
== END 2020-12-13 14:15 | DRG 309 ==
LOC: MW.ED 18:29 → MW.ICU 21:30
PROVIDERS: ADMIT Student in an Organized Health Care Education/Training Program; ATTEND Student in an Organized Health Care Education/Training Program
DX: I48.92 Unspecified atrial flutter (principal); Z68.42 Body mass index [BMI] 45.0-49.9, adult; I10 Essential (primary) hypertension; I48.91 Unspecified atrial fibrillation; G47.30 Sleep apnea, unspecified; Z79.01 Long term (current) use of anticoagulants; G47.33 Obstructive sleep apnea (adult) (pediatric); I11.0 Hypertensive heart disease with heart failure; Z79.82 Long term (current) use of aspirin; Z79.899 Other long term (current) drug therapy; I50.9 Heart failure, unspecified; E66.9 Obesity, unspecified; K21.9 Gastro-esophageal reflux disease without esophagitis; F41.9 Anxiety disorder, unspecified; F32.9 Major depressive disorder, single episode, unspecified; Z90.710 Acquired absence of both cervix and uterus; K52.9 Noninfective gastroenteritis and colitis, unspecified; Z20.822 Contact with and (suspected) exposure to COVID-19
CPT/HCPCS: 36415; 71045; 80053; 83735; 84100; 84443; 84484; 85025; 85379; 85610; 87635; 93005; J0153 ×2; J3490; J7030; 80048; 81003; 93306; 96374; 99285-25; A9270-GY; J1650; J7120; U0002

== ENCOUNTER 2021-06-16 14:39 | Inpatient (IN) | payer OTHER ==
[2021-06-16] MEDS ORDERED: Aspirin 81 MG Tab.Chew PO ONE (14:48)
[2021-06-16] MEDS ORDERED: Sodium Chloride 0.9% 500 ML IV SCH (15:00)
[2021-06-16 15:15] LABS: BLOOD UREA NITROGEN,BUN 13 mg/dL (7.0-18.0); CARBON DIOXIDE,CO2 23.7 mmol/L (21.0-32.0); CHLORIDE,CL 106 mmol/L (98-107); GLUCOSE RANDOM 125 mg/dL (74-106); SODIUM,NA 140 mmol/L (136-145)
[2021-06-16] MEDS ORDERED: Diltiazem 25 MG/5 ML SDV IVPUSH ONE ×2 (15:39→18:21)
--- NOTE | 2021-06-16 16:17 | CR ---
Indication: Dyspnea. Technique: AP portable view of the chest. Comparison: December 12, 2020. Findings: The heart is normal in size. The lungs are clear. No infiltrate, pleural effusion, pneumothorax is identified. Impression: No acute cardiopulmonary process. All Dictated by Monica Strickland MD @ 06/16/2021 4:16:[address] Monica Strickland @ Jun 16 2021 4:16PM
--- NOTE | 2021-06-16 19:01 | EDM.PDOC ---
ED HPI GENERAL MEDICAL PROBLEM - General Chief Complaint: Cardiovascular Problem Stated Complaint: chest pains Time Seen by Provider: 06/16/21 14:48 - History of Present Illness INITIAL COMMENTS - FREE TEXT/NARRATIVE: CHIEF COMPLAINT(S): Shortness of breath HISTORY OF PRESENT ILLNESS: This is a 56-year-old woman with a past medical history of atrial fibrillation/flutter with rapid ventricular response who is on anticoagulation, hypertension, obesity who presents to the emergency department chief complaint of shortness of breath. The patient states that she normally has some dyspnea on exertion however over the last 3 days she has been experiencing increased dyspnea on exertion. She states that she came to the emergency department because she thought she felt her heart racing. She denies any chest pain, abdominal pain, nausea or vomiting. She denies any lower extremity edema. She denies any recent travel or recent surgery or prior history of DVT or PE. She states that she has a scheduled elation in June 2021. She denies any other symptoms. REVIEW OF SYSTEMS: Constitutional: Denies fever, chills. Eyes: Denies eye pain Ears, Nose, Mouth, & Throat: Denies earache Cardiovascular: Positive for palpitations. Denies chest pain Respiratory: Positive for dyspnea on exertion. Denies cough Gastrointestinal: Denies Nausea, vomiting, diarrhea, hematochezia. Genitourinary: Denies hematuria Skin:Denies a rash MSK: Denies joint pain Neurological: Denies blurred vision Psychiatric: Denies depression PAST MEDICAL HISTORY: As per history of present illness and as reviewed below otherwise noncontributory. SURGICAL HISTORY: As per history of present illness and as reviewed below otherwise noncontributory. SOCIAL HISTORY: As per history of present illness and as reviewed below otherwise noncontributory. FAMILY HISTORY: As per history of present illness and as reviewed below otherwise noncontributory. EXAMINATION OF ORGAN SYSTEMS/BODY AREAS: Constitutional: Blood pressure is 164/104, heart rate 119, respiratory rate 18 with an oxygen saturation 95% on room air. Temperature 36.8 General: Well-appearing woman who is in no acute distress Psychiatric: Appropriate mood and affect. Eyes: No scleral icterus or conjunctival erythema ENMT: Moist mucous membranes. No pharyngeal erythema Cardiovascular: Irregular rhythm and rate. Tachycardic. Bilateral upper extremity pulses symmetric and intact. No peripheral edema. No JVD. Respiratory: Lungs clear to auscultation bilaterally. No wheezes, rales, or rhonchi. Gastrointestinal: Soft, non-tender, non-distended. Normoactive bowel sounds Genitourinary: No suprapubic tenderness Musculoskeletal: Normal range of motion. Skin: No lesions or abrasions. Neurological: Alert, GCS 15 MEDICAL DECISION MAKING AND COURSE IN THE ED WITH INTERPRETATION/REVIEW OF DIAGNOSTIC STUDIES: This is a 56-year-old man with a past medical history of atrial fibrillation/flutter who comes to the emergency department with palpitations who is hypertensive and tachycardic who has an irregular rhythm on palpation. At this time I do believe the patient is atrial flutter/fibrillation with RVR. We did obtain an EKG which did reveal my suspicions. There was no evidence of ischemia. At this time we will provide the patient with 500 cc of normal saline and reevaluate. The patient's heart rate is close to 110. Given the dyspnea on exertion we will obtain a cardiac work-up including a BNP and chest x-ray to evaluate for pneumonia versus heart failure. Obtain a D-dimer given the tachycardia is to evaluate for need for CT angiogram for pulmonary embolism. Will obtain a Covid swab and place the patient on cardiac monitoring pulse oximetry. Time: 1445 Twelve-lead EKG interpreted by myself. Atrial flutter with rapid ventricular response at a rate of 121 beats per minute. Normal axis. QRS duration is [address] segments are mildly depressed in V3 through V5. No T wave inversions no Q waves present. No ST elevation hypertrophy not noted. No changes demonstrated from prior EKG dated 12/12/20. Interpretation: Atrial flutter with rapid ventricular response After the bolus the patient's heart rate continued to remain elevated therefore we provided the patient with 25 mg of IV Cardizem. Her heart rate did improve into the 80s and was atrial fibrillation. Laboratory: CBC is unremarkable. D-dimer is negative. CMP is unremarkable. BNP is 130. Troponin is negative. Covid is negative. The radiological images were viewed by myself along with reading the report from the radiologist. Chest x-ray does not reveal any acute cardiopulmonary process. We did observe the patient in the emergency department however heart rate did increase to the 120s again. Therefore we provided the patient with 20 mg of IV Cardizem. I did discuss with her at this time that I can admit her to the hospital for medication management as she needs her meds adjusted given the atrial flutter with RVR. She was amenable to this plan. I contacted Dr. Storey and she accepted the patient for admission. DISPOSITION: Patient is admitted to the hospital in stable condition CONDITION: Fair PROCEDURES: Cardiac monitoring interpretation, pulse oximetry interpretation FINAL IMPRESSION(S)/DIAGNOSES: 1. Acute onset atrial flutter with RVR 2. Acute dyspnea on exertion Ramses Borges M.D. - Related Data Allergies Allergy/AdvReac Type Severity Reaction Status Date / Time No Known Allergies Allergy Verified 12/12/20 18:38 Home Meds: Home Meds Multivitamin [Multi-Vitamin Daily] 1 tab PO DAILY 07/27/14 [History] Omeprazole [Prilosec] 40 tab PO BRK 07/27/14 [History] Venlafaxine [Effexor XR] 150 mg PO DAILY 07/27/14 [History] Aspirin [Adult Low Dose Aspirin EC] 81 mg PO DAILY 02/08/20 [History] Melatonin 10 mg PO BEDTIME 02/08/20 [History] Diltiazem [Cardizem CD] 240 mg PO DAILY #30 cap.cd 02/10/20 [Rx] Metoprolol Tartrate [Lopressor] 12.5 mg PO Q12H 30 Days #60 tablet 02/10/20 [Rx] Flecainide [Tambocor] 150 mg PO BID 12/12/20 [History] Past Medical History Cardiovascular History: Reports: Afib, Hypertension, Other (See Below) Other Cardiovascular History: CHF Respiratory History: Reports: Sleep Apnea Gastrointestinal History: Reports: GERD MEDICARE INSURANCE SPECIALIST History: Reports: , Other (See Below) Other MEDICARE INSURANCE SPECIALIST History: Hysterectomy Psychiatric History: Reports: Anxiety, Depression Endocrine/Metabolic History: Reports: Obesity/BMI 30+ Oncologic (Cancer) History: Reports: Other (See Below) Other Oncologic History: skin - Infectious Disease History Infectious Disease History: Reports: Chicken Pox - Past Surgical History HEENT Surgical History: Reports: Other (See Below) Other HEENT Surgeries/Procedures: wisdom teeth removed Cardiovascular Surgical History: Reports: Cardiac Ablation Other Cardiovascular Surgeries/Procedures: ablation 2019 Respiratory Surgical History: Reports: None GI Surgical History: Reports: None Female Surgical History: Reports: Breast Biopsy, Hysterectomy Musculoskeletal Surgical History: Reports: Other (See Below) Other Musculoskeletal Surgeries/Procedures:: L bunion repair Other Oncologic Surgeries/Procedures: surgry on the affected skin area Social & Family History - Family History Family Medical History: No Pertinent Family History - Tobacco Use Tobacco Use Status *Q: Never Tobacco User - Caffeine Use Caffeine Use: Reports: None - Recreational Drug Use Recreational Drug Use: No ED ROS GENERAL - Review of Systems Review Of Systems: See Below ED EXAM, GENERAL - Physical Exam Exam: See Below Course - Vital Signs Last Recorded V/S: Last Vital Signs Temp 36.8 C 06/16/21 14:53 Pulse 93 06/16/21 17:20 Resp 18 06/16/21 17:20 BP 141/105 H 06/16/21 17:20 Pulse Ox 94 L 06/16/21 17:20 - Orders/Labs/Meds Orders: Active Orders 24 hr Category Date Time Status Admission Status [Patient Status] [ADT] Stat ADT 06/16/21 18:24 Active Sodium Chloride 0.9% [Normal Saline] 500 ml Med 06/16/21 15:00 Active IV .BOLUS Medication Orders Sodium Chloride (Normal Saline) 500 mls @ 500 mls/hr IV .BOLUS GELY Last Admin: 06/16/21 15:05 Dose: 500 mls/hr Documented by: EFREN Labs: Laboratory Tests 06/16/21 06/16/21 06/16/21 Range/Units 14:45 14:45 14:45 WBC 8.29 (4.0-11.0) K/uL RBC 5.10 (4.30-5.90) M/uL Hgb 14.2 (12.0-16.0) g/dL Hct 43.3 (36.0-46.0) % MCV 84.9 (80.0-98.0) fL MCH 27.8 (27.0-32.0) pg MCHC 32.8 (31.0-37.0) g/dL RDW Std Deviation 45.0 (28.0-62.0) fl RDW Coeff of Saira 15 (11.0-15.0) % Plt Count 306 (150-400) K/uL MPV 10.30 (7.40-12.00) fL Neut % (Auto) 66.7 (48.0-80.0) % Lymph % (Auto) 23.3 (16.0-40.0) % [place] % (Auto) 6.9 (0.0-15.0) % Eos % (Auto) 2.9 (0.0-7.0) % Baso % (Auto) 0.2 (0.0-1.5) % Neut # (Auto) 5.5 (1.4-5.7) K/uL Lymph # (Auto) 1.9 (0.6-2.4) K/uL [place] # (Auto) 0.6 (0.0-0.8) K/uL Eos # (Auto) 0.2 (0.0-0.7) K/uL Baso # (Auto) 0.0 (0.0-0.1) K/uL Nucleated RBC % 0.0 /100WBC Nucleated RBCs # 0 K/uL D-Dimer, Quantitative 0.38 (0.0-0.50) mg/L FEU Sodium 140 (136-145) mmol/L Potassium 4.0 (3.5-5.1) mmol/L Chloride 106 (98-107) mmol/L Carbon Dioxide 23.7 (21.0-32.0) mmol/L BUN 13 (7.0-18.0) mg/dL Creatinine 1.0 (0.6-1.0) mg/dL Est Cr Clr Drug Dosing 64.87 mL/min Estimated GFR (MDRD) 57.1 ml/min Glucose 125 H (74-106) mg/dL Calcium 8.8 (8.5-10.1) mg/dL Magnesium 2.0 (1.8-2.4) mg/dL Total Bilirubin 0.2 (0.2-1.0) mg/dL AST 17 (15-37) IU/L ALT 30 (14-63) IU/L Alkaline Phosphatase 101 (46-116) U/L Troponin I < 0.050 (0.000-0.056) ng/mL B-Natriuretic Peptide (<100) PG/ML Total Protein 7.6 (6.4-8.2) g/dL Albumin 3.8 (3.4-5.0) g/dL Globulin 3.8 (2.6-4.0) g/dL Albumin/Globulin Ratio 1.0 (0.9-1.6) SARS-CoV-2 RNA ([facility]MA) (NEGATIVE) 06/16/21 06/16/21 Range/Units 14:45 15:58 WBC (4.0-11.0) K/uL RBC (4.30-5.90) M/uL Hgb (12.0-16.0) g/dL Hct (36.0-46.0) % MCV (80.0-98.0) fL MCH (27.0-32.0) pg MCHC (31.0-37.0) g/dL RDW Std Deviation (28.0-62.0) fl RDW Coeff of Saira (11.0-15.0) % Plt Count (150-400) K/uL MPV (7.40-12.00) fL Neut % (Auto) (48.0-80.0) % Lymph % (Auto) (16.0-40.0) % [place] % (Auto) (0.0-15.0) % Eos % (Auto) (0.0-7.0) % Baso % (Auto) (0.0-1.5) % Neut # (Auto) (1.4-5.7) K/uL Lymph # (Auto) (0.6-2.4) K/uL [place] # (Auto) (0.0-0.8) K/uL Eos # (Auto) (0.0-0.7) K/uL Baso # (Auto) (0.0-0.1) K/uL Nucleated RBC % /100WBC Nucleated RBCs # K/uL D-Dimer, Quantitative (0.0-0.50) mg/L FEU Sodium (136-145) mmol/L Potassium (3.5-5.1) mmol/L Chloride (98-107) mmol/L Carbon Dioxide (21.0-32.0) mmol/L BUN (7.0-18.0) mg/dL Creatinine (0.6-1.0) mg/dL Est Cr Clr Drug Dosing mL/min Estimated GFR (MDRD) ml/min Glucose (74-106) mg/dL Calcium (8.5-10.1) mg/dL Magnesium (1.8-2.4) mg/dL Total Bilirubin (0.2-1.0) mg/dL AST (15-37) IU/L ALT (14-63) IU/L Alkaline Phosphatase (46-116) U/L Troponin I (0.000-0.056) ng/mL B-Natriuretic Peptide 130 H (<100) PG/ML Total Protein (6.4-8.2) g/dL Albumin (3.4-5.0) g/dL Globulin (2.6-4.0) g/dL Albumin/Globulin Ratio (0.9-1.6) SARS-CoV-2 RNA ([facility]) NEGATIVE (NEGATIVE) Meds: Medications Generic Name Dose Route Start Last Admin Trade Name Freq PRN Reason Stop Dose Admin Sodium Chloride 500 mls @ 500 mls/hr 06/16/21 15:00 06/16/21 15:05 Normal Saline IV 500 mls/hr .BOLUS GELY Administration Discontinued Medications Generic Name Dose Route Start Last Admin Trade Name Freq PRN Reason Stop Dose Admin Aspirin 324 mg 06/16/21 14:48 06/16/21 15:01 Aspirin 81 Mg Tab.Chew PO 06/16/21 14:49 324 mg ONETIME ONE Administration Diltiazem HCl 25 mg 06/16/21 15:39 06/16/21 16:10 Diltiazem 25 Mg/5 Ml Sdv IVPUSH 06/16/21 15:40 25 mg ONETIME ONE Administration Diltiazem HCl 20 mg 06/16/21 18:21 06/16/21 18:42 Diltiazem 25 Mg/5 Ml Sdv IVPUSH 06/16/21 18:22 20 mg ONETIME ONE Administration Departure - Departure Time of Disposition: 18:24 Disposition: Refer to Observation Condition: Fair Clinical Impression: Atrial flutter with rapid ventricular response - Discharge Information *PRESCRIPTION DRUG MONITORING PROGRAM REVIEWED*: No *COPY OF PRESCRIPTION DRUG MONITORING REPORT IN PATIENT DIONISIO: No Referrals: PCP,None [Primary Care Provider] - Sepsis Event Note (ED) - Focused Exam Vital Signs: Vital Signs Temp Pulse Resp BP Pulse Ox 06/16/21 17:20 93 18 141/105 H 94 L 06/16/21 16:42 105 H 18 150/105 H 95 06/16/21 15:43 124 H 17 135/91 H 93 L 06/16/21 15:31 127 H 19 136/88 95 06/16/21 14:53 36.8 C 119 H 18 164/104 H 95 - My Orders Last 24 Hours: My Active Orders 06/16/21 15:00 Sodium Chloride 0.9% [Normal Saline] 500 ml IV .BOLUS 06/16/21 18:24 Admission Status [Patient Status] [ADT] Stat - Assessment/Plan Last 24 Hours: My Active Orders 06/16/21 15:00 Sodium Chloride 0.9% [Normal Saline] 500 ml IV .BOLUS 06/16/21 18:24 Admission Status [Patient Status] [ADT] Stat
[2021-06-16] MEDS ORDERED: Acetaminophen 325 MG Tab PO PRN (19:44)
[2021-06-16] MEDS ORDERED: Albuterol/Ipratropium 3.0-0.5 MG/3 ML Neb Soln NEB PRN (19:44)
[2021-06-16] MEDS ORDERED: Ondansetron 4 MG/2 ML SDV IVPUSH PRN (19:44)
[2021-06-16] MEDS ORDERED: Enoxaparin 40 MG/0.4 ML Syringe SUBCUT SCH (19:45)
[2021-06-16] MEDS ORDERED: Metoprolol Tartrate 25 MG Tab PO SCH (20:00)
[2021-06-16] MEDS ORDERED: Non-Formulary Medication 1 Each (Melatonin [Melatonin] 10 MG Tablet) PO SCH (21:00)
[2021-06-16] MEDS: Metoprolol Succinate 50 MG Tab.ER PO SCH (21:01)
[2021-06-16] MEDS: Diltiazem IR 60 MG Tab PO SCH (21:01)
[2021-06-16] MEDS: Apixaban 5 MG Tab PO SCH (21:01)
--- NOTE | 2021-06-16 23:38 | PCM.HP.2 ---
H&P History of Present Illness - General Date of Service: 06/16/21 Admit Problem/Dx: Admission Diagnosis/Problem Admission Diagnosis/Problem Atrial flutter with rapid ventricular response - History of Present Illness Initial Comments - Free Text/Narative: Patient is a 56-year-old female with a past medical history of atrial fibrillation/flutter with rapid ventricular response who is on anticoagulation, hypertension, obesity who presents to the emergency department chief complaint of shortness of breath. The patient states that she normally has some dyspnea on exertion however over the last 3 days she has been experiencing increased dyspnea on exertion. She states that she came to the emergency department because she thought she felt her heart racing after she was doing some regular chores at work. She checked her smart watch which showed that her heart rate was in 130s. She denies any chest pain, abdominal pain, nausea or vomiting. She denies any lower extremity edema. She denies any recent travel or recent surgery or prior history of DVT or PE. She states that she has a scheduled ablation in June 2021. She follows up with a wireless sales representative at [facility], she denies any other symptoms. Twelve-lead EKG done in the ER showed atrial flutter with rapid ventricular response at a rate of 121 beats per minute. Normal axis. QRS duration is [address] segments are mildly depressed in V3 through V5. No T wave inversions no Q waves present. No ST elevation hypertrophy not noted. No changes demonstrated from prior EKG dated 12/12/20. Interpretation: Atrial flutter with rapid ventricular response. Patient received some IV fluid in the ER but her heart rate continued to remain elevated in the 120s so she received IV Cardizem push of 25 mg which did improve her heart rate to 80s and the rhythm was atrial fibrillation, rest of the lab work was unremarkable, BNP was 130, troponin was negative Covid was negative as well. Chest x-ray did not reveal any acute cardiopulmonary process. After some time patient's heart rate started to creep back up again to 120s to 130s and she received another dose of IV Cardizem 20 mg and was admitted to the hospital for further management of her A. fib/a flutter RVR. Patient was admitted here in the past at the beginning of the year for similar episode she has had an ablation in the past in 2018. And she is scheduled to get an ablation in mid June. States that she did not miss any of her medications and has been compliant with them. - Related Data Allergies/Adverse Reactions: Allergies Allergy/AdvReac Type Severity Reaction Status Date / Time No Known Allergies Allergy Verified 06/16/21 20:40 Home Medications: Home Meds Multivitamin [Multi-Vitamin Daily] 1 tab PO DAILY 07/27/14 [History] Omeprazole [Prilosec] 40 tab PO BRK 07/27/14 [History] Venlafaxine [Effexor XR] 150 mg PO DAILY 07/27/14 [History] Melatonin 10 mg PO BEDTIME 02/08/20 [History] Amiodarone [Cordarone] 200 mg PO DAILY 06/16/21 [History] Apixaban [Eliquis] 5 mg PO BID 06/16/21 [History] Metoprolol Succinate 50 mg PO BID 06/16/21 [History] Past Medical History Cardiovascular History: Reports: Afib, Hypertension, Other (See Below) Other Cardiovascular History: CHF Respiratory History: Reports: Sleep Apnea Gastrointestinal History: Reports: GERD COLORER HIDES AND SKINS History: Reports: , Other (See Below) Other OB/BYN History: Hysterectomy Psychiatric History: Reports: Anxiety, Depression Endocrine/Metabolic History: Reports: Obesity/BMI 30+ Oncologic (Cancer) History: Reports: Other (See Below) Other Oncologic History: skin - Infectious Disease History Infectious Disease History: Reports: Chicken Pox - Past Surgical History HEENT Surgical History: Reports: Other (See Below) Other HEENT Surgeries/Procedures: wisdom teeth removed Cardiovascular Surgical History: Reports: Cardiac Ablation Other Cardiovascular Surgeries/Procedures: ablation 2019 Respiratory Surgical History: Reports: None GI Surgical History: Reports: None Female Surgical History: Reports: Breast Biopsy, Hysterectomy Musculoskeletal Surgical History: Reports: Other (See Below) Other Musculoskeletal Surgeries/Procedures:: L bunion repair Other Oncologic Surgeries/Procedures: surgery on the affected skin area Social & Family History - Family History Family Medical History: No Pertinent Family History - Tobacco Use Tobacco Use Status *Q: Never Tobacco User Second Hand Smoke Exposure: No - Caffeine Use Caffeine Use: Reports: Soda Other Caffeine Use: caffeine free - Recreational Drug Use Recreational Drug Use: No H&P Review of Systems - Review of Systems: Review Of Systems: See Below General: Denies: Fever, Chills, Malaise HEENT: Denies: Dysphasia, Ear Pain Pulmonary: Denies: Shortness of Breath, Wheezing, Pleuritic Chest Pain, Cough Cardiovascular: Reports: Dyspnea on Exertion. Denies: Chest Pain, Palpitations, Orthopnea, PND Gastrointestinal: Denies: Abdominal Pain, Anorexia, Black Stool Genitourinary: Denies: Dysuria, Frequency, Pain, Urgency Musculoskeletal: Denies: Neck Pain, Shoulder Pain, Arm Pain Skin: Denies: Cyanosis, Jaundice, Mottled Psychiatric: Denies: Confusion, Depression, Hallucinations (Auditory) Neurological: Denies: Confusion, Dizziness, Difficulty Walking Hematologic/Lymphatic: Denies: Anemia, Easy Bleeding, Easy Bruising Exam - Exam Exam: See Below - Vital Signs Vital Signs: Last Vital Signs Temp 36.4 C 06/16/21 20:20 Pulse 130 H 06/16/21 21:01 Resp 20 06/16/21 20:20 BP 159/114 H 06/16/21 21:01 Pulse Ox 96 06/16/21 20:20 Weight: 147.418 kg - Exam General: Alert, Oriented, Cooperative HEENT: Conjunctiva Clear Lungs: Clear to Auscultation, Normal Respiratory Effort Cardiovascular: Regular Rate, Normal S1, Normal S2, Irregular Rhythm GI/Abdominal Exam: Normal Bowel Sounds, Soft, Non-Tender Skin: Warm - Patient Data Lab Results Last 24 hrs: Laboratory Results - last 24 hr 06/16/21 06/16/21 06/16/21 Range/Units 14:45 14:45 14:45 WBC 8.29 (4.0-11.0) K/uL RBC 5.10 (4.30-5.90) M/uL Hgb 14.2 (12.0-16.0) g/dL Hct 43.3 (36.0-46.0) % MCV 84.9 (80.0-98.0) fL MCH 27.8 (27.0-32.0) pg MCHC 32.8 (31.0-37.0) g/dL RDW Std Deviation 45.0 (28.0-62.0) fl RDW Coeff of Saira 15 (11.0-15.0) % Plt Count 306 (150-400) K/uL MPV 10.30 (7.40-12.00) fL Neut % (Auto) 66.7 (48.0-80.0) % Lymph % (Auto) 23.3 (16.0-40.0) % [place]ack[place]ord % (Auto) 6.9 (0.0-15.0) % Eos % (Auto) 2.9 (0.0-7.0) % Baso % (Auto) 0.2 (0.0-1.5) % Neut # (Auto) 5.5 (1.4-5.7) K/uL Lymph # (Auto) 1.9 (0.6-2.4) K/uL [place] # (Auto) 0.6 (0.0-0.8) K/uL Eos # (Auto) 0.2 (0.0-0.7) K/uL Baso # (Auto) 0.0 (0.0-0.1) K/uL Nucleated RBC % 0.0 /100WBC Nucleated RBCs # 0 K/uL D-Dimer, Quantitative 0.38 (0.0-0.50) mg/L FEU Sodium 140 (136-145) mmol/L Potassium 4.0 (3.5-5.1) mmol/L Chloride 106 (98-107) mmol/L Carbon Dioxide 23.7 (21.0-32.0) mmol/L BUN 13 (7.0-18.0) mg/dL Creatinine 1.0 (0.6-1.0) mg/dL Est Cr Clr Drug Dosing 64.87 mL/min Estimated GFR (MDRD) 57.1 ml/min Glucose 125 H (74-106) mg/dL Calcium 8.8 (8.5-10.1) mg/dL Magnesium 2.0 (1.8-2.4) mg/dL Total Bilirubin 0.2 (0.2-1.0) mg/dL AST 17 (15-37) IU/L ALT 30 (14-63) IU/L Alkaline Phosphatase 101 (46-116) U/L Troponin I < 0.050 (0.000-0.056) ng/mL B-Natriuretic Peptide (<100) PG/ML Total Protein 7.6 (6.4-8.2) g/dL Albumin 3.8 (3.4-5.0) g/dL Globulin 3.8 (2.6-4.0) g/dL Albumin/Globulin Ratio 1.0 (0.9-1.6) SARS-CoV-2 RNA (KARMA) (NEGATIVE) 06/16/21 06/16/21 Range/Units 14:45 15:58 WBC (4.0-11.0) K/uL RBC (4.30-5.90) M/uL Hgb (12.0-16.0) g/dL Hct (36.0-46.0) % MCV (80.0-98.0) fL MCH (27.0-32.0) pg MCHC (31.0-37.0) g/dL RDW Std Deviation (28.0-62.0) fl RDW Coeff of Saira (11.0-15.0) % Plt Count (150-400) K/uL MPV (7.40-12.00) fL Neut % (Auto) (48.0-80.0) % Lymph % (Auto) (16.0-40.0) % Shackelford % (Auto) (0.0-15.0) % Eos % (Auto) (0.0-7.0) % Baso % (Auto) (0.0-1.5) % Neut # (Auto) (1.4-5.7) K/uL Lymph # (Auto) (0.6-2.4) K/uL Shackelford # (Auto) (0.0-0.8) K/uL Eos # (Auto) (0.0-0.7) K/uL Baso # (Auto) (0.0-0.1) K/uL Nucleated RBC % /100WBC Nucleated RBCs # K/uL D-Dimer, Quantitative (0.0-0.50) mg/L FEU Sodium (136-145) mmol/L Potassium (3.5-5.1) mmol/L Chloride (98-107) mmol/L Carbon Dioxide (21.0-32.0) mmol/L BUN (7.0-18.0) mg/dL Creatinine (0.6-1.0) mg/dL Est Cr Clr Drug Dosing mL/min Estimated GFR (MDRD) ml/min Glucose (74-106) mg/dL Calcium (8.5-10.1) mg/dL Magnesium (1.8-2.4) mg/dL Total Bilirubin (0.2-1.0) mg/dL AST (15-37) IU/L ALT (14-63) IU/L Alkaline Phosphatase (46-116) U/L Troponin I (0.000-0.056) ng/mL B-Natriuretic Peptide 130 H (<100) PG/ML Total Protein (6.4-8.2) g/dL Albumin (3.4-5.0) g/dL Globulin (2.6-4.0) g/dL Albumin/Globulin Ratio (0.9-1.6) SARS-CoV-2 RNA (KARMA) NEGATIVE (NEGATIVE) Result Diagrams: 06/16/21 14:45 06/16/21 14:45 Sepsis Event Note - Focused Exam Vital Signs: Vital Signs Temp Pulse Pulse Resp BP BP Pulse Ox 06/16/21 21:01 130 H 159/114 H 06/16/21 20:20 36.4 C 128 H 20 159/114 H 96 06/16/21 20:08 36.8 C 90 18 121/72 97 06/16/21 17:20 93 18 141/105 H 94 L 06/16/21 16:42 105 H 18 150/105 H 95 06/16/21 15:43 124 H 17 135/91 H 93 L 06/16/21 15:31 127 H 19 136/88 95 06/16/21 14:53 36.8 C 119 H 18 164/104 H 95 - Problem List (1) Atrial flutter with rapid ventricular response SNOMED Code(s): 5061679, 0953296 ICD Code: I48.92 - UNSPECIFIED ATRIAL FLUTTER Status: Acute Current Visit: Yes (2) Atrial fibrillation with RVR SNOMED Code(s): 207090080458937 ICD Code: I48.91 - UNSPECIFIED ATRIAL FIBRILLATION Status: Acute Current Visit: No (3) BMI 45.0-49.9, adult SNOMED Code(s): 038955357, 111331315 ICD Code: Z68.42 - BODY MASS INDEX [BMI] 45.0-49.9, ADULT Status: Acute Current Visit: No (4) Depression SNOMED Code(s): 19846988 ICD Code: F32.9 - MAJOR DEPRESSIVE DISORDER, SINGLE EPISODE, UNSPECIFIED Status: Acute Current Visit: No (5) HTN (hypertension) SNOMED Code(s): 03244858 ICD Code: I10 - ESSENTIAL (PRIMARY) HYPERTENSION Status: Acute Current Visit: No (6) Sleep apnea SNOMED Code(s): 34589864 ICD Code: G47.30 - SLEEP APNEA, UNSPECIFIED Status: Acute Current Visit: No Problem List Initiated/Reviewed/Updated: Yes Orders Last 24hrs: Active Orders 24 hr Category Date Time Status Admission Status [Patient Status] [ADT] Stat ADT 06/16/21 18:24 Active Ambulate [RC] ASDIRECTED Care 06/16/21 19:44 Active Oxygen Therapy [RC] PRN Care 06/16/21 19:44 Active RT Aerosol Therapy [RC] ASDIRECTED Care 06/16/21 19:46 Active Telemetry Monitoring [Cardiac Monitoring] [RC] Q8H Care 06/16/21 19:17 Active VTE/DVT Education [RC] PER UNIT ROUTINE Care 06/16/21 19:44 Active Vital Signs [RC] Q4H Care 06/16/21 19:44 Active Heart Healthy Diet [DIET] Diet 06/16/21 Dinner Active Acetaminophen [TylenoL] Med 06/16/21 19:44 Active 650 mg PO Q4H PRN Albuterol/Ipratropium [DuoNeb 3.0-0.5 MG/3 ML] Med 06/16/21 19:44 Active 3 ml NEB Q4HRRT PRN Apixaban [Eliquis] Med 06/16/21 21:00 Active 5 mg PO BID Diltiazem Med 06/16/21 19:48 Active 20 mg IVPUSH Q4H PRN Diltiazem IR [Cardizem] Med 06/16/21 20:00 Active 60 mg PO Q6HR Melatonin Med 06/17/21 21:00 Active 9 mg PO BEDTIME Metoprolol Succinate [Toprol XL] Med 06/16/21 21:00 Active 50 mg PO BID Multivitamin [Multi-Vitamin Daily] Med 06/17/21 09:00 Active 1 tab PO DAILY Ondansetron [Zofran] Med 06/16/21 19:44 Active 4 mg IVPUSH Q4H PRN Pantoprazole [ProTONIX] Med 06/17/21 07:30 Active 40 mg PO ACBREAKFAST Sodium Chloride 0.9% [Normal Saline] 500 ml Med 06/16/21 15:00 Active IV .BOLUS Venlafaxine Med 06/17/21 09:00 Active 150 mg PO DAILY Medication Orders Acetaminophen (Acetaminophen 325 Mg Tab) 650 mg PO Q4H PRN PRN Reason: Pain (Mild 1-3)/fever Albuterol/Ipratropium (Albuterol/Ipratropium 3.0-0.5 Mg/3 Ml Neb Soln) 3 ml NEB Q4HRRT PRN PRN Reason: Shortness Of Breath/wheezing Apixaban (Apixaban 5 Mg Tab) 5 mg PO BID [facility] Last Admin: 06/16/21 21:01 Dose: 5 mg Documented by: KEVON Diltiazem HCl (Diltiazem Ir 60 Mg Tab) 60 mg PO Q6HR [facility] Last Admin: 06/16/21 21:01 Dose: 60 mg Documented by: KEVON Diltiazem HCl (Diltiazem 25 Mg/5 Ml Sdv) 20 mg IVPUSH Q4H PRN PRN Reason: Tachycardia Sodium Chloride (Normal Saline) 500 mls @ 500 mls/hr IV .BOLUS [facility] Last Admin: 06/16/21 15:05 Dose: 500 mls/hr Documented by: EFREN Melatonin (Melatonin 3 Mg Tab) 9 mg PO BEDTIME [facility] Metoprolol Succinate (Metoprolol Succinate 50 Mg Tab.Er) 50 mg PO BID [facility] Last Admin: 06/16/21 21:01 Dose: 50 mg Documented by: KEVON Non-Formulary Medication (Multivitamin [Multi-Vitamin Daily]) 1 tab PO DAILY [facility] Non-Formulary Medication (Venlafaxine) 150 mg PO DAILY [facility] Ondansetron HCl (Ondansetron 4 Mg/2 Ml Sdv) 4 mg IVPUSH Q4H PRN PRN Reason: Nausea/Vomiting Pantoprazole Sodium (Pantoprazole 40 Mg Tab.Cr) 40 mg PO ACBREAKFAST [facility] Assessment/Plan Comment:: 56-year-old female admitted for A. fib RVR Patient received 2 doses of IV Cardizem pushes which she was able to bring her heart rate down No concern of acute ACS or volume overload or PE currently We will resume her home medications, patient takes metoprolol succinate twice a day not metoprolol tartrate per med reconciliation We will resume blood thinner We will start patient on intermediate release oral Cardizem, patient may need to be sent home on calcium channel aditi on top of beta-aditi and amiodarone Patient will follow up with cardiology in 2 weeks, we will reconfirm the appointment in the morning Patient had a recent echo in November 2020 Keep potassium greater than 4 and magnesium greater than 2
[2021-06-17] MEDS: Diltiazem IR 60 MG Tab PO SCH ×5 (00:32→23:42)
[2021-06-17] MEDS: Pantoprazole 40 MG Tab.CR PO SCH (08:00)
[2021-06-17] MEDS ORDERED: Aspirin 81 MG Tab.EC PO SCH (09:00)
[2021-06-17] MEDS ORDERED: Amiodarone 200 MG Tab PO SCH (09:00)
[2021-06-17] MEDS: Metoprolol Succinate 50 MG Tab.ER PO SCH (09:07)
[2021-06-17] MEDS: Multivitamin Tab PO SCH (09:07)
[2021-06-17] MEDS: Venlafaxine 75 MG Cap.ER PO SCH (09:07)
[2021-06-17] MEDS: Apixaban 5 MG Tab PO SCH ×2 (09:07→20:31)
--- NOTE | 2021-06-17 09:42 | PCM.PN ---
- General Info Date of Service: 06/17/21 Admission Dx/Problem (Free Text): Admission Diagnosis/Problem Admission Diagnosis/Problem Atrial flutter with rapid ventricular response Subjective Update: Sitting up in chair. Reports that she gets short of breath with any movement notices her heart rate jumps significantly with any activity. Denies any chest pain or otherwise shortness of breath. No fevers or chills. No leg pain no abdominal pain. She is sitting up in the chair eating breakfast doing well. Functional Status: Reports: Pain Controlled, Tolerating Diet, Ambulating, Urinating - Review of Systems General: Reports: No Symptoms. Denies: Fatigue, Malaise HEENT: Reports: No Symptoms. Denies: Headaches, Sore Throat, Visual Changes Pulmonary: Reports: No Symptoms. Denies: Shortness of Breath, Sputum Cardiovascular: Reports: Palpitations, Dyspnea on Exertion. Denies: Chest Pain, Edema Gastrointestinal: Reports: No Symptoms. Denies: Abdominal Pain, Nausea, Vomiting Genitourinary: Reports: No Symptoms. Denies: Dysuria, Frequency, Burning Musculoskeletal: Reports: No Symptoms Skin: Reports: No Symptoms Neurological: Reports: No Symptoms Psychiatric: Reports: No Symptoms - Patient Data Vitals - Most Recent: Last Vital Signs Temp 97.4 F 06/17/21 06:00 Pulse 104 H 06/17/21 09:07 Resp 18 06/17/21 06:00 BP 141/84 H 06/17/21 09:07 Pulse Ox 97 06/17/21 06:00 Weight - Most Recent: 147.281 kg I&O - Last 24 Hours: Intake & Output 06/16/21 06/17/21 06/17/21 22:59 06:59 14:59 Intake Total 150 Output Total 1500 Balance -1350 Lab Results Last 24 Hours: Laboratory Results - last 24 hr 06/16/21 06/16/21 06/16/21 Range/Units 14:45 14:45 14:45 WBC 8.29 (4.0-11.0) K/uL RBC 5.10 (4.30-5.90) M/uL Hgb 14.2 (12.0-16.0) g/dL Hct 43.3 (36.0-46.0) % MCV 84.9 (80.0-98.0) fL MCH 27.8 (27.0-32.0) pg MCHC 32.8 (31.0-37.0) g/dL RDW Std Deviation 45.0 (28.0-62.0) fl RDW Coeff of Saira 15 (11.0-15.0) % Plt Count 306 (150-400) K/uL MPV 10.30 (7.40-12.00) fL Neut % (Auto) 66.7 (48.0-80.0) % Lymph % (Auto) 23.3 (16.0-40.0) % [place] % (Auto) 6.9 (0.0-15.0) % Eos % (Auto) 2.9 (0.0-7.0) % Baso % (Auto) 0.2 (0.0-1.5) % Neut # (Auto) 5.5 (1.4-5.7) K/uL Lymph # (Auto) 1.9 (0.6-2.4) K/uL [place] # (Auto) 0.6 (0.0-0.8) K/uL Eos # (Auto) 0.2 (0.0-0.7) K/uL Baso # (Auto) 0.0 (0.0-0.1) K/uL Nucleated RBC % 0.0 /100WBC Nucleated RBCs # 0 K/uL D-Dimer, Quantitative 0.38 (0.0-0.50) mg/L FEU Sodium 140 (136-145) mmol/L Potassium 4.0 (3.5-5.1) mmol/L Chloride 106 (98-107) mmol/L Carbon Dioxide 23.7 (21.0-32.0) mmol/L BUN 13 (7.0-18.0) mg/dL Creatinine 1.0 (0.6-1.0) mg/dL Est Cr Clr Drug Dosing 64.87 mL/min Estimated GFR (MDRD) 57.1 ml/min Glucose 125 H (74-106) mg/dL Calcium 8.8 (8.5-10.1) mg/dL Magnesium 2.0 (1.8-2.4) mg/dL Total Bilirubin 0.2 (0.2-1.0) mg/dL AST 17 (15-37) IU/L ALT 30 (14-63) IU/L Alkaline Phosphatase 101 (46-116) U/L Troponin I < 0.050 (0.000-0.056) ng/mL B-Natriuretic Peptide (<100) PG/ML Total Protein 7.6 (6.4-8.2) g/dL Albumin 3.8 (3.4-5.0) g/dL Globulin 3.8 (2.6-4.0) g/dL Albumin/Globulin Ratio 1.0 (0.9-1.6) SARS-CoV-2 RNA (KARMA) (NEGATIVE) 06/16/21 06/16/21 Range/Units 14:45 15:58 WBC (4.0-11.0) K/uL RBC (4.30-5.90) M/uL Hgb (12.0-16.0) g/dL Hct (36.0-46.0) % MCV (80.0-98.0) fL MCH (27.0-32.0) pg MCHC (31.0-37.0) g/dL RDW Std Deviation (28.0-62.0) fl RDW Coeff of Saira (11.0-15.0) % Plt Count (150-400) K/uL MPV (7.40-12.00) fL Neut % (Auto) (48.0-80.0) % Lymph % (Auto) (16.0-40.0) % [place] % (Auto) (0.0-15.0) % Eos % (Auto) (0.0-7.0) % Baso % (Auto) (0.0-1.5) % Neut # (Auto) (1.4-5.7) K/uL Lymph # (Auto) (0.6-2.4) K/uL [place] # (Auto) (0.0-0.8) K/uL Eos # (Auto) (0.0-0.7) K/uL Baso # (Auto) (0.0-0.1) K/uL Nucleated RBC % /100WBC Nucleated RBCs # K/uL D-Dimer, Quantitative (0.0-0.50) mg/L FEU Sodium (136-145) mmol/L Potassium (3.5-5.1) mmol/L Chloride (98-107) mmol/L Carbon Dioxide (21.0-32.0) mmol/L BUN (7.0-18.0) mg/dL Creatinine (0.6-1.0) mg/dL Est Cr Clr Drug Dosing mL/min Estimated GFR (MDRD) ml/min Glucose (74-106) mg/dL Calcium (8.5-10.1) mg/dL Magnesium (1.8-2.4) mg/dL Total Bilirubin (0.2-1.0) mg/dL AST (15-37) IU/L ALT (14-63) IU/L Alkaline Phosphatase (46-116) U/L Troponin I (0.000-0.056) ng/mL B-Natriuretic Peptide 130 H (<100) PG/ML Total Protein (6.4-8.2) g/dL Albumin (3.4-5.0) g/dL Globulin (2.6-4.0) g/dL Albumin/Globulin Ratio (0.9-1.6) SARS-CoV-2 RNA (KARMA) NEGATIVE (NEGATIVE) Med Orders - Current: Current Medications Acetaminophen (Acetaminophen 325 Mg Tab) 650 mg PO Q4H PRN PRN Reason: Pain (Mild 1-3)/fever Last Admin: 06/17/21 08:55 Dose: 650 mg Documented by: Albuterol/Ipratropium (Albuterol/Ipratropium 3.0-0.5 Mg/3 Ml Neb Soln) 3 ml NEB Q4HRRT PRN PRN Reason: Shortness Of Breath/wheezing Amiodarone HCl (Amiodarone 200 Mg Tab) 200 mg PO DAILY [facility] Last Admin: 06/17/21 09:08 Dose: 200 mg Documented by: Apixaban (Apixaban 5 Mg Tab) 5 mg PO BID [facility] Last Admin: 06/17/21 09:07 Dose: 5 mg Documented by: Diltiazem HCl (Diltiazem Ir 60 Mg Tab) 60 mg PO Q6HR [facility] Last Admin: 06/17/21 06:01 Dose: 60 mg Documented by: Diltiazem HCl (Diltiazem 25 Mg/5 Ml Sdv) 20 mg IVPUSH Q4H PRN PRN Reason: Tachycardia Sodium Chloride (Normal Saline) 500 mls @ 500 mls/hr IV .BOLUS [facility] Last Admin: 06/16/21 15:05 Dose: 500 mls/hr Documented by: Melatonin (Melatonin 3 Mg Tab) 9 mg PO BEDTIME [facility] Metoprolol Succinate (Metoprolol Succinate 50 Mg Tab.Er) 50 mg PO BID [facility] Last Admin: 06/17/21 09:07 Dose: 50 mg Documented by: Multivitamins/Minerals/Vitamin C (Multivitamin Tab) 1 tab PO DAILY [facility] Last Admin: 06/17/21 09:07 Dose: 1 tab Documented by: Ondansetron HCl (Ondansetron 4 Mg/2 Ml Sdv) 4 mg IVPUSH Q4H PRN PRN Reason: Nausea/Vomiting Pantoprazole Sodium (Pantoprazole 40 Mg Tab.Cr) 40 mg PO ACBREAKFAST [facility] Last Admin: 06/17/21 08:00 Dose: 40 mg Documented by: Venlafaxine HCl (Venlafaxine 75 Mg Cap.Er) 150 mg PO DAILY [facility] Last Admin: 06/17/21 09:07 Dose: 150 mg Documented by: Discontinued Medications Aspirin (Aspirin 81 Mg Tab.Chew) 324 mg PO ONETIME ONE Stop: 06/16/21 14:49 Last Admin: 06/16/21 15:01 Dose: 324 mg Documented by: Aspirin (Aspirin 81 Mg Tab.Ec) 81 mg PO DAILY [facility] Diltiazem HCl (Diltiazem 25 Mg/5 Ml Sdv) 25 mg IVPUSH ONETIME ONE Stop: 06/16/21 15:40 Last Admin: 06/16/21 16:10 Dose: 25 mg Documented by: Diltiazem HCl (Diltiazem 25 Mg/5 Ml Sdv) 20 mg IVPUSH ONETIME ONE Stop: 06/16/21 18:22 Last Admin: 06/16/21 18:42 Dose: 20 mg Documented by: Enoxaparin Sodium (Enoxaparin 40 Mg/0.4 Ml Syringe) 40 mg SUBCUT Q24H [facility] Last Admin: 06/16/21 20:47 Dose: Not Given Documented by: Metoprolol Tartrate (Metoprolol Tartrate 25 Mg Tab) 12.5 mg PO Q12H [facility] Last Admin: 06/16/21 20:48 Dose: Not Given Documented by: Non-Formulary Medication (Melatonin [Melatonin]) 10 mg PO BEDTIME [facility] Last Admin: 06/16/21 21:54 Dose: Not Given Documented by: - Exam Quality Assessment: DVT Prophylaxis. No: Supplemental Oxygen General: Alert, Oriented, Cooperative, No Acute Distress Lungs: Clear to Auscultation, Normal Respiratory Effort Cardiovascular: Irregular Rhythm, Tachycardia. No: Murmurs GI/Abdominal Exam: Normal Bowel Sounds, Soft, Non-Tender Extremities: Normal Inspection, Normal Range of Motion, Non-Tender, No Pedal Edema Neurological: No New Focal Deficit Psy/Mental Status: Alert, Normal Affect, Normal Mood - Patient Data Lab Results Last 24 hrs: Laboratory Results - last 24 hr 06/16/21 06/16/21 06/16/21 Range/Units 14:45 14:45 14:45 WBC 8.29 (4.0-11.0) K/uL RBC 5.10 (4.30-5.90) M/uL Hgb 14.2 (12.0-16.0) g/dL Hct 43.3 (36.0-46.0) % MCV 84.9 (80.0-98.0) fL MCH 27.8 (27.0-32.0) pg MCHC 32.8 (31.0-37.0) g/dL RDW Std Deviation 45.0 (28.0-62.0) fl RDW Coeff of Saira 15 (11.0-15.0) % Plt Count 306 (150-400) K/uL MPV 10.30 (7.40-12.00) fL Neut % (Auto) 66.7 (48.0-80.0) % Lymph % (Auto) 23.3 (16.0-40.0) % [place] % (Auto) 6.9 (0.0-15.0) % Eos % (Auto) 2.9 (0.0-7.0) % Baso % (Auto) 0.2 (0.0-1.5) % Neut # (Auto) 5.5 (1.4-5.7) K/uL Lymph # (Auto) 1.9 (0.6-2.4) K/uL [place] # (Auto) 0.6 (0.0-0.8) K/uL Eos # (Auto) 0.2 (0.0-0.7) K/uL Baso # (Auto) 0.0 (0.0-0.1) K/uL Nucleated RBC % 0.0 /100WBC Nucleated RBCs # 0 K/uL D-Dimer, Quantitative 0.38 (0.0-0.50) mg/L FEU Sodium 140 (136-145) mmol/L Potassium 4.0 (3.5-5.1) mmol/L Chloride 106 (98-107) mmol/L Carbon Dioxide 23.7 (21.0-32.0) mmol/L BUN 13 (7.0-18.0) mg/dL Creatinine 1.0 (0.6-1.0) mg/dL Est Cr Clr Drug Dosing 64.87 mL/min Estimated GFR (MDRD) 57.1 ml/min Glucose 125 H (74-106) mg/dL Calcium 8.8 (8.5-10.1) mg/dL Magnesium 2.0 (1.8-2.4) mg/dL Total Bilirubin 0.2 (0.2-1.0) mg/dL AST 17 (15-37) IU/L ALT 30 (14-63) IU/L Alkaline Phosphatase 101 (46-116) U/L Troponin I < 0.050 (0.000-0.056) ng/mL B-Natriuretic Peptide (<100) PG/ML Total Protein 7.6 (6.4-8.2) g/dL Albumin 3.8 (3.4-5.0) g/dL Globulin 3.8 (2.6-4.0) g/dL Albumin/Globulin Ratio 1.0 (0.9-1.6) SARS-CoV-2 RNA ([facility]) (NEGATIVE) 06/16/21 06/16/21 Range/Units 14:45 15:58 WBC (4.0-11.0) K/uL RBC (4.30-5.90) M/uL Hgb (12.0-16.0) g/dL Hct (36.0-46.0) % MCV (80.0-98.0) fL MCH (27.0-32.0) pg MCHC (31.0-37.0) g/dL RDW Std Deviation (28.0-62.0) fl RDW Coeff of Saira (11.0-15.0) % Plt Count (150-400) K/uL MPV (7.40-12.00) fL Neut % (Auto) (48.0-80.0) % Lymph % (Auto) (16.0-40.0) % [place] % (Auto) (0.0-15.0) % Eos % (Auto) (0.0-7.0) % Baso % (Auto) (0.0-1.5) % Neut # (Auto) (1.4-5.7) K/uL Lymph # (Auto) (0.6-2.4) K/uL [place] # (Auto) (0.0-0.8) K/uL Eos # (Auto) (0.0-0.7) K/uL Baso # (Auto) (0.0-0.1) K/uL Nucleated RBC % /100WBC Nucleated RBCs # K/uL D-Dimer, Quantitative (0.0-0.50) mg/L FEU Sodium (136-145) mmol/L Potassium (3.5-5.1) mmol/L Chloride (98-107) mmol/L Carbon Dioxide (21.0-32.0) mmol/L BUN (7.0-18.0) mg/dL Creatinine (0.6-1.0) mg/dL Est Cr Clr Drug Dosing mL/min Estimated GFR (MDRD) ml/min Glucose (74-106) mg/dL Calcium (8.5-10.1) mg/dL Magnesium (1.8-2.4) mg/dL Total Bilirubin (0.2-1.0) mg/dL AST (15-37) IU/L ALT (14-63) IU/L Alkaline Phosphatase (46-116) U/L Troponin I (0.000-0.056) ng/mL B-Natriuretic Peptide 130 H (<100) PG/ML Total Protein (6.4-8.2) g/dL Albumin (3.4-5.0) g/dL Globulin (2.6-4.0) g/dL Albumin/Globulin Ratio (0.9-1.6) SARS-CoV-2 RNA ([facility]MA) NEGATIVE (NEGATIVE) Result Diagrams: 06/16/21 14:45 06/17/21 10:08 Sepsis Event Note - Focused Exam Vital Signs: Vital Signs Temp Pulse Pulse Resp BP BP Pulse Ox 06/17/21 09:07 104 H 141/84 H 06/17/21 06:00 97.4 F 125 H 18 152/89 H 97 06/17/21 00:00 97.7 F 105 H 18 138/82 95 - Problem List & Annotations (1) Atrial flutter with rapid ventricular response SNOMED Code(s): 4812490, 4457762 Code(s): I48.92 - UNSPECIFIED ATRIAL FLUTTER Status: Acute Current Visit: Yes (2) BMI 45.0-49.9, adult SNOMED Code(s): 313469806, 880214012 Code(s): Z68.42 - BODY MASS INDEX [BMI] 45.0-49.9, ADULT Status: Chronic Current Visit: No (3) Depression SNOMED Code(s): 12807944 Code(s): F32.9 - MAJOR DEPRESSIVE DISORDER, SINGLE EPISODE, UNSPECIFIED Status: Chronic Current Visit: No (4) HTN (hypertension) SNOMED Code(s): 07961894 Code(s): I10 - ESSENTIAL (PRIMARY) HYPERTENSION Status: Chronic Current Visit: No (5) Sleep apnea SNOMED Code(s): 35465750 Code(s): G47.30 - SLEEP APNEA, UNSPECIFIED Status: Chronic Current Visit: No (6) Afib SNOMED Code(s): 38203446 Code(s): I48.91 - UNSPECIFIED ATRIAL FIBRILLATION Status: Chronic Current Visit: No Qualifiers: Atrial fibrillation type: longstanding persistent Qualified Code(s): I48.11 - Longstanding persistent atrial fibrillation - Problem List Review Problem List Initiated/Reviewed/Updated: Yes - My Orders Last 24 Hours: My Active Orders 06/17/21 09:00 Amiodarone [Cordarone] 200 mg PO DAILY 06/17/21 09:41 BASIC METABOLIC PANEL,BMP [CHEM] Routine MAGNESIUM [CHEM] Routine - Plan Plan:: 56-year-old female admitted for A. fib RVR 1. A. fib RVR -Patient continued on home dose of amiodarone 200 mg p.o. daily -Patient continued on home dose of metoprolol XL 50 mg p.o. twice daily -Patient started on diltiazem 60 mg p.o. every 6 hours, has not received any IV doses of diltiazem -Heart rate has continued to be irregular and erratic up to the 130s without consistent control with addition of diltiazem. -I did call and speak with Dr. Sotelo, [facility] in [facility] who was patient's physician down there. She is scheduled for ablation in mid June. Transfer is limited due to hospital bed availability but he recommended titration of medication in controlling heart rate prior to deciding transfer. He recommends loading amiodarone IV for 24 hours then increasing home dose to 200 mg p.o. twice daily. He also recommends increasing metoprolol to 75 mg twice daily. He is okay with diltiazem 60 p.o. every 6 currently which should be a total daily dosing of 240 mg. He recommends of tomorrow heart rate continues to be erratic and elevating that he would increase this to be a total of 360 p.o. daily. Patient had most recent echo here 12/13/2020 will send results to him along with images radiology was called and will send via PACS. -Continue Eliquis -Continue cardiology follow-up in 2 weeks -Monitor potassium and magnesium daily keeping potassium greater than 4 magnesium greater than 2. -Monitor blood pressure which has been stable in the 140s and 150s systolically since admission. VTE prophylaxis: Eliquis, patient has been compliant and has not missed any doses CODE STATUS: Full code Dispo: We will make patient inpatient as she will likely need greater than 2 mi dnights at this point we are placing her on amiodarone drip to help control A. fib/flutter with RVR.
[2021-06-17] MEDS: Diltiazem 25 MG/5 ML SDV IVPUSH PRN ×2 (09:51→22:49)
[2021-06-17 10:40] LABS: CARBON DIOXIDE,CO2 20.9 mmol/L (21.0-32.0); POTASSIUM,K 4.3 mmol/L (3.5-5.1)
--- NOTE | 2021-06-17 17:18 | PN ---
THC Physician - Brief Progress [id number]/30/2021 17:05[facility] Jasvir Mcclendon, [place] - MWN (KATI) - MYRTLE ROJASDate of Service 06/17/2021 17:05HPI/Events of Note Brief eICU Admit NoteEMR reviewed. 56yo female admitted yesterday for afib/flutter with RVR . Known history, outpatient meds include Amio, metoprolol, AC. Dilt added for control. Patient's C ardiologist contacted today, recommended 24 hour Amio drip. Plan outlined in today's progress note.P atient seen on camera: morbidly obese lady sitting up in bed in NAD35.8 P 80s-90s 21 91-2% RA 100/69O SA: Sleep study noted dated 10/26/18 stating that patient has MELISSA, recommended CPAP at 13. Arrhythmia has low chance of being controlled if MELISSA is not under control. I am ordering CPAP as tolerated whil e sleeping. If patient cannot tolerate CPAP at 13 then consider APAP 8-13 or changing to bipap.Pleas e contact us if we may be of further assistance.Interventions Major-Arrhythmia - evaluation and manag ement, Other: OSA
[2021-06-17] MEDS: Melatonin 3 MG Tab PO SCH (20:31)
[2021-06-17] MEDS: Metoprolol Succinate 25 MG Tab.ER PO SCH (20:31)
[2021-06-17] MEDS ORDERED: Metoprolol Tartrate 25 MG Tab PO ONE (23:53)
[2021-06-18 06:28] LABS: BLOOD UREA NITROGEN,BUN 13 mg/dL (7.0-18.0); CHLORIDE,CL 104 mmol/L (98-107); GLUCOSE RANDOM 119 mg/dL (74-106); POTASSIUM,K 4.3 mmol/L (3.5-5.1); SODIUM,NA 141 mmol/L (136-145)
[2021-06-18] MEDS: Diltiazem IR 60 MG Tab PO SCH ×3 (06:35→18:06)
[2021-06-18] MEDS: Pantoprazole 40 MG Tab.CR PO SCH (07:48)
--- NOTE | 2021-06-18 07:51 | PCM.PN ---
- General Info Date of Service: 06/18/21 Admission Dx/Problem (Free Text): Admission Diagnosis/Problem Admission Diagnosis/Problem Atrial flutter with rapid ventricular response Subjective Update: Sitting up in chair, doing well. No chest pain or palpitations. No dyspnea today with exertion. HR improved overnight, intermittent 120s. NO other concerns today. Functional Status: Reports: Pain Controlled, Tolerating Diet, Ambulating, Urinating - Review of Systems General: Reports: No Symptoms. Denies: Weakness, Fatigue, Malaise HEENT: Reports: No Symptoms. Denies: Headaches, Sore Throat, Visual Changes Pulmonary: Reports: No Symptoms. Denies: Shortness of Breath Cardiovascular: Reports: No Symptoms. Denies: Chest Pain Gastrointestinal: Reports: No Symptoms. Denies: Abdominal Pain, Nausea, V omiting Genitourinary: Reports: No Symptoms. Denies: Dysuria, Frequency Musculoskeletal: Reports: No Symptoms Skin: Reports: No Symptoms Neurological: Reports: No Symptoms Psychiatric: Reports: No Symptoms - Patient Data Vitals - Most Recent: Last Vital Signs Temp 97.1 F 06/18/21 04:00 Pulse 127 H 06/18/21 00:00 Resp 13 06/18/21 06:00 BP 106/70 06/18/21 06:00 Pulse Ox 92 L 06/18/21 06:00 Weight - Most Recent: 147.4 kg I&O - Last 24 Hours: Intake & Output 06/17/21 06/18/21 06/18/21 22:59 06:59 14:59 Intake Total 1260 415 Output Total 1500 600 Balance -240 -185 Lab Results Last 24 Hours: Laboratory Results - last 24 hr 06/17/21 06/18/21 Range/Units 10:08 04:47 Sodium 137 141 (136-145) mmol/L Potassium 4.3 4.3 (3.5-5.1) mmol/L Chloride 103 104 (98-107) mmol/L Carbon Dioxide 20.9 L 29.0 (21.0-32.0) mmol/L BUN 12 13 (7.0-18.0) mg/dL Creatinine 1.0 0.9 (0.6-1.0) mg/dL Est Cr Clr Drug Dosing 64.87 72.07 mL/min Estimated GFR (MDRD) 57.1 > 60.0 ml/min Glucose 190 H 119 H (74-106) mg/dL Calcium 9.4 9.3 (8.5-10.1) mg/dL Magnesium 2.0 2.1 (1.8-2.4) mg/dL Med Orders - Current: Current Medications Acetaminophen (Acetaminophen 325 Mg Tab) 650 mg PO Q4H PRN PRN Reason: Pain (Mild 1-3)/fever Last Admin: 06/17/21 08:55 Dose: 650 mg Documented by: Albuterol/Ipratropium (Albuterol/Ipratropium 3.0-0.5 Mg/3 Ml Neb Soln) 3 ml NEB Q4HRRT PRN PRN Reason: Shortness Of Breath/wheezing Apixaban (Apixaban 5 Mg Tab) 5 mg PO BID [facility] Last Admin: 06/17/21 20:31 Dose: 5 mg Documented by: Diltiazem HCl (Diltiazem Ir 60 Mg Tab) 60 mg PO Q6HR [facility] Last Admin: 06/18/21 06:35 Dose: 60 mg Documented by: Diltiazem HCl (Diltiazem 25 Mg/5 Ml Sdv) 20 mg IVPUSH Q4H PRN PRN Reason: Tachycardia Last Admin: 06/17/21 22:49 Dose: 20 mg Documented by: Sodium Chloride (Normal Saline) 500 mls @ 500 mls/hr IV .BOLUS [facility] Last Admin: 06/16/21 15:05 Dose: 500 mls/hr Documented by: Amiodarone HCl/Dextrose (Nexterone In Dextrose 360 Mg/200 Ml) 360 mg in 200 mls @ 16.667 mls/hr IV ASDIRECTED [facility]; Protocol Last Admin: 06/17/21 20:46 Dose: 0.5 mg/min, 16.667 mls/hr Documented by: Melatonin (Melatonin 3 Mg Tab) 9 mg PO BEDTIME [facility] Last Admin: 06/17/21 20:31 Dose: 9 mg Documented by: Metoprolol Succinate (Metoprolol Succinate 25 Mg Tab.Er) 75 mg PO BID [facility] Last Admin: 06/17/21 20:31 Dose: 75 mg Documented by: Multivitamins/Minerals/Vitamin C (Multivitamin Tab) 1 tab PO DAILY [facility] Last Admin: 06/17/21 09:07 Dose: 1 tab Documented by: Ondansetron HCl (Ondansetron 4 Mg/2 Ml Sdv) 4 mg IVPUSH Q4H PRN PRN Reason: Nausea/Vomiting Pantoprazole Sodium (Pantoprazole 40 Mg Tab.Cr) 40 mg PO ACBREAKFAST [facility] Last Admin: 06/18/21 07:48 Dose: 40 mg Documented by: Venlafaxine HCl (Venlafaxine 75 Mg Cap.Er) 150 mg PO DAILY [facility] Last Admin: 06/17/21 09:07 Dose: 150 mg Documented by: Discontinued Medications Amiodarone HCl (Amiodarone 200 Mg Tab) 200 mg PO DAILY [facility] Last Admin: 06/17/21 09:08 Dose: 200 mg Documented by: Aspirin (Aspirin 81 Mg Tab.Chew) 324 mg PO ONETIME ONE Stop: 06/16/21 14:49 Last Admin: 06/16/21 15:01 Dose: 324 mg Documented by: Aspirin (Aspirin 81 Mg Tab.Ec) 81 mg PO DAILY [facility] Diltiazem HCl (Diltiazem 25 Mg/5 Ml Sdv) 25 mg IVPUSH ONETIME ONE Stop: 06/16/21 15:40 Last Admin: 06/16/21 16:10 Dose: 25 mg Documented by: Diltiazem HCl (Diltiazem 25 Mg/5 Ml Sdv) 20 mg IVPUSH ONETIME ONE Stop: 06/16/21 18:22 Last Admin: 06/16/21 18:42 Dose: 20 mg Documented by: Enoxaparin Sodium (Enoxaparin 40 Mg/0.4 Ml Syringe) 40 mg SUBCUT Q24H [facility] Last Admin: 06/16/21 20:47 Dose: Not Given Documented by: Amiodarone HCl/Dextrose (Nexterone In Dextrose 150 Mg/100 Ml) 100 mls @ 600 mls/hr IV ONETIME ONE; Protocol Stop: 06/17/21 14:37 Last Admin: 06/17/21 15:06 Dose: 600 mls/hr Documented by: Amiodarone HCl/Dextrose (Nexterone In Dextrose 360 Mg/200 Ml) 360 mg in 200 mls @ 33.333 mls/hr IV ASDIRECTED [facility]; Protocol Stop: 06/17/21 21:00 Last Admin: 06/17/21 15:23 Dose: 1 mg/min, 33.333 mls/hr Documented by: Metoprolol Succinate (Metoprolol Succinate 50 Mg Tab.Er) 50 mg PO BID [facility] Last Admin: 06/17/21 09:07 Dose: 50 mg Documented by: Metoprolol Tartrate (Metoprolol Tartrate 25 Mg Tab) 12.5 mg PO Q12H [facility] Last Admin: 06/16/21 20:48 Dose: Not Given Documented by: Metoprolol Tartrate (Metoprolol Tartrate 25 Mg Tab) 25 mg PO ONETIME ONE Stop: 06/17/21 23:54 Last Admin: 06/18/21 00:00 Dose: 25 mg Documented by: Non-Formulary Medication (Melatonin [Melatonin]) 10 mg PO BEDTIME [facility] Last Admin: 06/16/21 21:54 Dose: Not Given Documented by: - Exam General: Alert, Oriented, Cooperative, No Acute Distress Lungs: Clear to Auscultation, Normal Respiratory Effort Cardiovascular: Regular Rate, Irregular Rhythm. No: Murmurs GI/Abdominal Exam: Normal Bowel Sounds, Soft, Non-Tender Extremities: Normal Inspection, Normal Range of Motion, Non-Tender, No Pedal Kenneth ma Neurological: No New Focal Deficit Psy/Mental Status: Alert, Normal Affect, Normal Mood - Patient Data Lab Results Last 24 hrs: Laboratory Results - last 24 hr 06/17/21 06/18/21 Range/Units 10:08 04:47 Sodium 137 141 (136-145) mmol/L Potassium 4.3 4.3 (3.5-5.1) mmol/L Chloride 103 104 (98-107) mmol/L Carbon Dioxide 20.9 L 29.0 (21.0-32.0) mmol/L BUN 12 13 (7.0-18.0) mg/dL Creatinine 1.0 0.9 (0.6-1.0) mg/dL Est Cr Clr Drug Dosing 64.87 72.07 mL/min Estimated GFR (MDRD) 57.1 > 60.0 ml/min Glucose 190 H 119 H (74-106) mg/dL Calcium 9.4 9.3 (8.5-10.1) mg/dL Magnesium 2.0 2.1 (1.8-2.4) mg/dL Result Diagrams: 06/16/21 14:45 06/18/21 04:47 Sepsis Event Note - Focused Exam Vital Signs: Vital Signs Temp Pulse Resp BP BP Pulse Ox 06/18/21 06:00 13 106/70 92 L 06/18/21 05:00 13 113/76 92 L 06/18/21 04:00 97.1 F 10 L 119/79 91 L 06/18/21 03:00 12 123/76 93 L 06/18/21 02:00 12 119/78 91 L 06/18/21 01:00 97.3 F 14 125/85 93 L 06/18/21 00:00 127 H 14 121/80 121/80 97 06/17/21 23:00 12 122/70 91 L 06/17/21 22:00 98.2 F 14 132/83 92 L 06/17/21 21:00 22 H 173/102 H 96 06/17/21 20:31 106 H 122/90 06/17/21 20:00 97.7 F 19 122/95 H 92 L - Problem List & Annotations (1) Atrial flutter with rapid ventricular response SNOMED Code(s): 2573914, 6123044 Code(s): I48.92 - UNSPECIFIED ATRIAL FLUTTER Status: Acute Current Visit: Yes (2) BMI 45.0-49.9, adult SNOMED Code(s): 418199181, 295353356 Code(s): Z68.42 - BODY MASS INDEX [BMI] 45.0-49.9, ADULT Status: Chronic Current Visit: No (3) Depression SNOMED Code(s): 91363920 Code(s): F32.9 - MAJOR DEPRESSIVE DISORDER, SINGLE EPISODE, UNSPECIFIED Status: Chronic Current Visit: No (4) HTN (hypertension) SNOMED Code(s): 73412836 Code(s): I10 - ESSENTIAL (PRIMARY) HYPERTENSION Status: Chronic Current Visit: No (5) Sleep apnea SNOMED Code(s): 74434644 Code(s): G47.30 - SLEEP APNEA, UNSPECIFIED Status: Chronic Current Visit: No (6) Afib SNOMED Code(s): 86654963 Code(s): I48.91 - UNSPECIFIED ATRIAL FIBRILLATION Status: Chronic Current Visit: No Qualifiers: Atrial fibrillation type: longstanding persistent Qualified Code(s): I48.11 - Longstanding persistent atrial fibrillation - Problem List Review Problem List Initiated/Reviewed/Updated: Yes - My Orders Last 24 Hours: My Active Orders 06/17/21 14:33 Patient Status [ADT] Routine 06/17/21 14:34 Cardiac Monitoring [RC] . 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 fib RVR 1. A. fib RVR -Continue amiodarone 200 mg p.o. daily -Metoprolol XL increased to 75 mg BID -Continue diltiazem 60 mg p.o. every 6 hours -Continue Amiodarone gtt x 24 hours, transition to Amiodarone 200 mg PO BID -Dr. Sotelo, [facility] cardiology in [facility] who was patient's physician down there. She is scheduled for ablation in mid June. Transfer is limited due to hospital bed availability but he recommended titration of medication in controlling heart rate prior to deciding transfer. He recommends loading amiodarone IV for 24 hours then increasing home dose to 200 mg p.o. twice daily. He also recommends increasing metoprolol to 75 mg twice daily. He is okay with diltiazem 60 p.o. every 6 currently which should be a total daily dosing of 240 mg. He recommends of tomorrow heart rate continues to be erratic and elevating that he would increase this to be a total of 360 p.o. daily. Patient had most recent echo here 12/13/2020 will send results to him along with images radiology was called and will send via PACS. -Continue Eliquis -Continue cardiology follow-up in 2 weeks -Monitor potassium and magnesium daily keeping potassium greater than 4 magnesium greater than 2. -Blood pressure remains stable. - Continue CPAP for MELISSA. VTE prophylaxis: Eliquis, patient has been compliant and has not missed any do ses CODE STATUS: Full code Dispo: Likely 1-2 more days
[2021-06-18] MEDS: Metoprolol Succinate 25 MG Tab.ER PO SCH ×2 (08:23→20:32)
[2021-06-18] MEDS: Venlafaxine 75 MG Cap.ER PO SCH (08:24)
[2021-06-18] MEDS: Multivitamin Tab PO SCH (08:25)
[2021-06-18] MEDS: Apixaban 5 MG Tab PO SCH ×2 (08:25→20:32)
[2021-06-18] MEDS: Amiodarone 200 MG Tab PO SCH (20:32)
[2021-06-18] MEDS: Melatonin 3 MG Tab PO SCH (20:32)
[2021-06-19] MEDS: Diltiazem IR 60 MG Tab PO SCH ×2 (00:30→05:48)
[2021-06-19 06:33] LABS: CARBON DIOXIDE,CO2 27.8 mmol/L (21.0-32.0); POTASSIUM,K 4.2 mmol/L (3.5-5.1)
[2021-06-19] MEDS: Pantoprazole 40 MG Tab.CR PO SCH (06:46)
[2021-06-19] MEDS: Venlafaxine 75 MG Cap.ER PO SCH (08:54)
[2021-06-19] MEDS: Amiodarone 200 MG Tab PO SCH (08:55)
[2021-06-19] MEDS: Metoprolol Succinate 25 MG Tab.ER PO SCH (08:55)
[2021-06-19] MEDS: Multivitamin Tab PO SCH (08:56)
[2021-06-19] MEDS: Apixaban 5 MG Tab PO SCH (08:56)
[2021-06-19] MEDS ORDERED: Diltiazem 120 MG Cap.CD PO SCH (10:30)
[2021-06-19 11:08] VITALS: BP 125/68; PULSE 66
--- NOTE | 2021-06-19 11:20 | PCM.DCSUM1 ---
Discharge Summary - Hospital Course Brief History: Patient is a 56-year-old female with a past medical history of atrial fibrillation/flutter with rapid ventricular response who is on anticoagulation, hypertension, obesity who presents to the emergency department chief complaint of shortness of breath. The patient states that she normally has some dyspnea on exertion however over the last 3 days she has been experiencing increased dyspnea on exertion. She states that she came to the emergency department because she thought she felt her heart racing after she was doing some regular chores at work. She checked her smart watch which showed that her heart rate was in 130s. She denies any chest pain, abdominal pain, nausea or vomiting. She denies any lower extremity edema. She denies any recent travel or recent surgery or prior history of DVT or PE. She states that she has a scheduled ablation in June 2021. She follows up with a airveyor operator at [place], she denies any other symptoms. Twelve-lead EKG done in the ER showed atrial flutter with rapid ventricular response at a rate of 121 beats per minute. Normal axis. QRS duration is [address] segments are mildly depressed in V3 through V5. No T wave inversions no Q waves present. No ST elevation hypertrophy not noted. No changes demonstrated from prior EKG dated 12/12/20. Interpretation: Atrial flutter with rapid ventricular response. Patient received some IV fluid in the ER but her heart rate continued to remain elevated in the 120s so she received IV Cardizem push of 25 mg which did improve her heart rate to 80s and the rhythm was atrial fibrillation, rest of the lab work was unremarkable, BNP was 130, troponin was negative Covid was negative as well. Chest x-ray did not reveal any acute cardiopulmonary process. After some time patient's heart rate started to creep back up again to 120s to 130s and she received another dose of IV Cardizem 20 mg and was admitted to the hospital for further management of her A. fib/a flutter RVR. Patient was admitted here in the past at the beginning of the year for similar episode she has had an ablation in the past in 2018. And she is scheduled to get an ablation in mid June. States that she did not miss any of her medications and has been compliant with them. - Discharge Data Discharge Date: 06/19/21 Discharge Disposition: Home, Self-Care 01 Condition: Stable - Referral to Home Health Primary Care Physician: PCP None - Discharge Diagnosis/Problem(s) (1) Atrial flutter with rapid ventricular response SNOMED Code(s): 5455407, 8449579 ICD Code: I48.92 - UNSPECIFIED ATRIAL FLUTTER Status: Acute (2) BMI 45.0-49.9, adult SNOMED Code(s): 651655470, 272066841 ICD Code: Z68.42 - BODY MASS INDEX [BMI] 45.0-49.9, ADULT Status: Chronic (3) Depression SNOMED Code(s): 85676888 ICD Code: F32.9 - MAJOR DEPRESSIVE DISORDER, SINGLE EPISODE, UNSPECIFIED Status: Chronic (4) HTN (hypertension) SNOMED Code(s): 12203973 ICD Code: I10 - ESSENTIAL (PRIMARY) HYPERTENSION Status: Chronic (5) Sleep apnea SNOMED Code(s): 98608103 ICD Code: G47.30 - SLEEP APNEA, UNSPECIFIED Status: Chronic (6) Afib SNOMED Code(s): 75968499 ICD Code: I48.91 - UNSPECIFIED ATRIAL FIBRILLATION Status: Chronic Qualifiers: Atrial fibrillation type: longstanding persistent Qualified Code(s): I48.11 - Longstanding persistent atrial fibrillation - Patient Summary/Data Hospital Course: Admission diagnoses A. fib RVR Discharge diagnoses A. fib RVR resolved converted to sinus rhythm Rebecca was admitted secondary to A. fib RVR noted to have rates 130s to 140s A. fib/a flutter. She was admitted to ICU for observation and started on diltiazem p.o. after multiple doses of diltiazem IV in the ER. Heart rate continued to be erratic going up to 130s and 140s especially with activity. She was continued on her amiodarone p.o. 200 daily along with metoprolol XL [address] Sotelo, EP cardiology in [facility] was contacted as he is providing care for patient in regards to atrial fibrillation. He recommended placing patient on amiodarone drip to reload her and continue p.o. after 24 hours of 200 mg p.o. twice daily. He also increase metoprolol to 75 mg twice daily and agreed with diltiazem 60 mg p.o. every 6 for total daily dosing of 240 mg. Patient was loaded on amiodarone on 06/17/2021 to 06/18/2021 and patient then started on amiodarone 200 mg p.o. twice daily 06/18/2020 PM. Patient then converted to sinus rhythm overnight has had rates of 60s to 70s sinus rhythm with frequent PACs. Patient blood pressure has been stable 120s over 60s. Patient was started on diltiazem 240 mg p.o. daily today along with continuing amiodarone 200 mg p.o. twice daily and metoprolol 75 mg p.o. twice daily. Patient is feeling well and very eager to go home. She has follow-up with Dr. Sotelo next week for ablation. EKG on this morning when patient was in sinus rhythm. Will fax this along with discharge summary to Dr. Sotelo. We appreciate his assistance for this patient patient to be discharged home today. She is to return to the ER clinic sooner if concerns should arise. Patient is to continue Eliquis and other home medications. - Patient Instructions Diet: Heart Healthy Diet Activity: As Tolerated Showering/Bathing: May Shower Notify Provider of: Fever, Increased Pain, Swelling and Redness, Drainage, Nausea and/or Vomiting - Discharge Plan *PRESCRIPTION DRUG MONITORING PROGRAM REVIEWED*: No *COPY OF PRESCRIPTION DRUG MONITORING REPORT IN PATIENT DIONISIO: No Prescriptions/Med Rec: Diltiazem HCl [Diltiazem 24Hr Cd] 240 mg PO DAILY #30 cap.er.24h Home Medications: Home Meds Multivitamin [Multi-Vitamin Daily] 1 tab PO DAILY 07/27/14 [History] Omeprazole [Prilosec] 40 tab PO BRK 07/27/14 [History] Venlafaxine [Effexor XR] 150 mg PO DAILY 07/27/14 [History] Melatonin 10 mg PO BEDTIME 02/08/20 [History] Apixaban [Eliquis] 5 mg PO BID 06/16/21 [History] Amiodarone [Cordarone] 200 mg PO BID tablet 06/19/21 [Rx] Diltiazem HCl [Diltiazem 24Hr Cd] 240 mg PO DAILY #30 cap.er.24h 06/19/21 [Rx] Metoprolol Succinate [Toprol XL] 75 mg PO BID tab.er 06/19/21 [Rx] Oxygen Therapy Mode: Room Air Patient Handouts: Atrial Flutter, Diltiazem Oral Extended-Release 24-Hour Pellet Capsules Referrals: PCP,None [Primary Care Provider] - - Discharge Summary/Plan Comment DC Time >30 min.: No Total # of Minutes for Discharge Time: 25 - Patient Data Vitals - Most Recent: Last Vital Signs Temp 97.7 F 06/19/21 08:50 Pulse 66 06/19/21 11:07 Resp 17 06/19/21 08:50 BP 125/68 06/19/21 11:07 Pulse Ox 94 L 06/19/21 08:50 Weight - Most Recent: 147.4 kg I&O - Last 24 hours: Intake & Output 06/18/21 06/19/21 06/19/21 22:59 06:59 14:59 Intake Total 1100 1000 Output Total 1300 1200 Balance -200 -200 Lab Results - Last 24 hrs: Laboratory Results - last 24 hr 06/19/21 Range/Units 05:49 Sodium 139 (136-145) mmol/L Potassium 4.2 (3.5-5.1) mmol/L Chloride 103 (98-107) mmol/L Carbon Dioxide 27.8 (21.0-32.0) mmol/L BUN 19 H (7.0-18.0) mg/dL Creatinine 1.0 (0.6-1.0) mg/dL Est Cr Clr Drug Dosing 64.87 mL/min Estimated GFR (MDRD) 57.1 ml/min Glucose 108 H (74-106) mg/dL Calcium 9.1 (8.5-10.1) mg/dL Magnesium 2.2 (1.8-2.4) mg/dL Med Orders - Current: Current Medications Acetaminophen (Acetaminophen 325 Mg Tab) 650 mg PO Q4H PRN PRN Reason: Pain (Mild 1-3)/fever Last Admin: 06/17/21 08:55 Dose: 650 mg Documented by: Albuterol/Ipratropium (Albuterol/Ipratropium 3.0-0.5 Mg/3 Ml Neb Soln) 3 ml NEB Q4HRRT PRN PRN Reason: Shortness Of Breath/wheezing Amiodarone HCl (Amiodarone 200 Mg Tab) 200 mg PO BID [facility] Last Admin: 06/19/21 08:55 Dose: 200 mg Documented by: Apixaban (Apixaban 5 Mg Tab) 5 mg PO BID [facility] Last Admin: 06/19/21 08:56 Dose: 5 mg Documented by: Diltiazem HCl (Diltiazem 25 Mg/5 Ml Sdv) 20 mg IVPUSH Q4H PRN PRN Reason: Tachycardia Last Admin: 06/17/21 22:49 Dose: 20 mg Documented by: Diltiazem HCl (Diltiazem 120 Mg Cap.Cd) 240 mg PO DAILY [facility] Last Admin: 06/19/21 11:07 Dose: 240 mg Documented by: Sodium Chloride (Normal Saline) 500 mls @ 500 mls/hr IV .BOLUS [facility] Last Admin: 06/16/21 15:05 Dose: 500 mls/hr Documented by: Melatonin (Melatonin 3 Mg Tab) 9 mg PO BEDTIME [facility] Last Admin: 06/18/21 20:32 Dose: 9 mg Documented by: Metoprolol Succinate (Metoprolol Succinate 25 Mg Tab.Er) 75 mg PO BID [facility] Last Admin: 06/19/21 08:55 Dose: 75 mg Documented by: Multivitamins/Minerals/Vitamin C (Multivitamin Tab) 1 tab PO DAILY [facility] Last Admin: 06/19/21 08:56 Dose: 1 tab Documented by: Ondansetron HCl (Ondansetron 4 Mg/2 Ml Sdv) 4 mg IVPUSH Q4H PRN PRN Reason: Nausea/Vomiting Pantoprazole Sodium (Pantoprazole 40 Mg Tab.Cr) 40 mg PO ACBREAKFAST [facility] Last Admin: 06/19/21 06:46 Dose: 40 mg Documented by: Venlafaxine HCl (Venlafaxine 75 Mg Cap.Er) 150 mg PO DAILY [facility] Last Admin: 06/19/21 08:54 Dose: 150 mg Documented by: Discontinued Medications Amiodarone HCl (Amiodarone 200 Mg Tab) 200 mg PO DAILY [facility] Last Admin: 06/17/21 09:08 Dose: 200 mg Documented by: Aspirin (Aspirin 81 Mg Tab.Chew) 324 mg PO ONETIME ONE Stop: 06/16/21 14:49 Last Admin: 06/16/21 15:01 Dose: 324 mg Documented by: Aspirin (Aspirin 81 Mg Tab.Ec) 81 mg PO DAILY [facility] Diltiazem HCl (Diltiazem 25 Mg/5 Ml Sdv) 25 mg IVPUSH ONETIME ONE Stop: 06/16/21 15:40 Last Admin: 06/16/21 16:10 Dose: 25 mg Documented by: Diltiazem HCl (Diltiazem 25 Mg/5 Ml Sdv) 20 mg IVPUSH ONETIME ONE Stop: 06/16/21 18:22 Last Admin: 06/16/21 18:42 Dose: 20 mg Documented by: Diltiazem HCl (Diltiazem Ir 60 Mg Tab) 60 mg PO Q6HR [facility] Last Admin: 06/19/21 05:48 Dose: 60 mg Documented by: Enoxaparin Sodium (Enoxaparin 40 Mg/0.4 Ml Syringe) 40 mg SUBCUT Q24H [facility] Last Admin: 06/16/21 20:47 Dose: Not Given Documented by: Amiodarone HCl/Dextrose (Nexterone In Dextrose 150 Mg/100 Ml) 100 mls @ 600 mls/hr IV ONETIME ONE; Protocol Stop: 06/17/21 14:37 Last Admin: 06/17/21 15:06 Dose: 600 mls/hr Documented by: Amiodarone HCl/Dextrose (Nexterone In Dextrose 360 Mg/200 Ml) 360 mg in 200 mls @ 33.333 mls/hr IV ASDIRECTED [facility]; Protocol Stop: 06/17/21 21:00 Last Admin: 06/17/21 15:23 Dose: 1 mg/min, 33.333 mls/hr Documented by: Amiodarone HCl/Dextrose (Nexterone In Dextrose 360 Mg/200 Ml) 360 mg in 200 mls @ 16.667 mls/hr IV ASDIRECTED [facility]; Protocol Stop: 06/18/21 15:00 Last Admin: 06/18/21 08:20 Dose: 0.5 mg/min, 16.667 mls/hr Documented by: Metoprolol Succinate (Metoprolol Succinate 50 Mg Tab.Er) 50 mg PO BID [facility] Last Admin: 06/17/21 09:07 Dose: 50 mg Documented by: Metoprolol Tartrate (Metoprolol Tartrate 25 Mg Tab) 12.5 mg PO Q12H [facility] Last Admin: 06/16/21 20:48 Dose: Not Given Documented by: Metoprolol Tartrate (Metoprolol Tartrate 25 Mg Tab) 25 mg PO ONETIME ONE Stop: 06/17/21 23:54 Last Admin: 06/18/21 00:00 Dose: 25 mg Documented by: Non-Formulary Medication (Melatonin [Melatonin]) 10 mg PO BEDTIME [facility] Last Admin: 06/16/21 21:54 Dose: Not Given Documented by:
--- NOTE | 2021-06-22 20:59 | PCM.EKG ---
#1 Interpretation EKG Date: 06/19/21 Time: :09 Rhythm: NSR EKG Interpretation Comments: Sinus rhythm with occasional atrial premature complex
== END 2021-06-19 11:35 | disposition home or self-care (01) | DRG 309 ==
LOC: MW.ED 14:39 → OBSVTOIN 18:24 → MW.ICU 18:24
PROVIDERS: ADMIT Student in an Organized Health Care Education/Training Program; ATTEND Student in an Organized Health Care Education/Training Program
DX: I48.11 Longstanding persistent atrial fibrillation (principal); I48.91 Unspecified atrial fibrillation; Z68.42 Body mass index [BMI] 45.0-49.9, adult; I48.92 Unspecified atrial flutter; E66.9 Obesity, unspecified; F32.9 Major depressive disorder, single episode, unspecified; G47.30 Sleep apnea, unspecified; I11.0 Hypertensive heart disease with heart failure; Z20.822 Contact with and (suspected) exposure to COVID-19; K21.9 Gastro-esophageal reflux disease without esophagitis; F41.9 Anxiety disorder, unspecified; R06.02 Shortness of breath; Z79.899 Other long term (current) drug therapy; Z90.710 Acquired absence of both cervix and uterus; Z79.82 Long term (current) use of aspirin; Z79.01 Long term (current) use of anticoagulants; I50.9 Heart failure, unspecified
CPT/HCPCS: 36415; 71045; 80053; 83735; 83880; 84484; 85025; 85379; 87635; 93005; 96374; 99285; A9270; J3490; J7040; 80048; 93010; 96376; 99284; G0378; J0282; U0002

== ENCOUNTER 2021-08-12 18:11 | Emergency (ER) | payer OTHER ==
[2021-08-12] MEDS ORDERED: Bacitracin Oint 1 GM U/D Packet TOP ONE (20:04)
[2021-08-12] MEDS ORDERED: Lidocaine 1% PF 2 ML SDV INJECT ONE (20:04)
[2021-08-12] MEDS ORDERED: Bacitracin Oint 1 GM U/D Packet ONE (23:01)
[2021-08-12] MEDS ORDERED: Diphtheria,Pertussis(Acell),Tetanus Vaccine 0.5 ML Syringe IM ONE (23:15)
--- NOTE | 2021-08-12 23:17 | EDM.PDOC ---
ED HPI GENERAL MEDICAL PROBLEM - General Chief Complaint: Laceration Stated Complaint: LT HAND LACERATION Time Seen by Provider: 08/12/21 20:05 - History of Present Illness INITIAL COMMENTS - FREE TEXT/NARRATIVE: History of present illness: [] Patient cut her hand on a broken dish. She has laceration of the thumb index finger and long finger left hand. Left hand: The thumb has a 1 x 1/2 cm soft tissue evulsion missing tissue on the volar thumb. The index finger has a 4 mm laceration full-thickness in the middle segment on the volar surface. The long finger has a 4 mm laceration full-thickness on the volar IPJ. Her function motor or sensory exam are normal distally. Review of systems: As per history of present illness and below otherwise all systems reviewed and negative. Past medical history: As per history of present illness and as reviewed below otherwise noncontributory. Surgical history: As per history of present illness and as reviewed below otherwise noncontributory. Social history: No reported history of drug or alcohol abuse. Family history: As per history of present illness and as reviewed below otherwise noncontributory. Physical exam: Constitutional - well developed, well-nourished and in no acute distress HEENT - normocephalic, no evidence of trauma - external nose and mouth normal - no mass in neck and no JVD - mucosae moist EYES - full EOM, PERRL, no icterus - no evidence of inflammation, injection, or drainage Respiratory - no respiratory distress, equal bilateral expansion, lungs clear to auscultation and no abnormal lung sounds Cardiovascular - Regular Rhythm with S1 and S2 appreciated and no murmur, gallop or rub. GI - abdomen soft without distension or organomegaly - normal bowel sounds - no guard or rebound Musculoskeletal no gross deformity of long bones or joints - no tenderness, swelling or edema Neurologic - Alert and oriented times four - CN II-XII grossly intact - motor sensory and coordination symmetrically normal Psychiatric - appropriate mood and affect with normal thought content Hematologic - No petechiae or purpura - mucosa appropriate color and sclera not pale - normal nail bed color and refill Integument - Left hand: The thumb has a 1 x 1/2 cm soft tissue evulsion missing tissue on the volar thumb. The index finger has a 4 mm laceration full- thickness in the middle segment on the volar surface. The long finger has a 4 mm laceration full-thickness on the volar IPJ. Her function motor or sensory exam are normal distally.no rash or evidence of trauma - normal turgor Diagnostics: [] Therapeutics: [] Impression: [] Plan: [] Definitive disposition and diagnosis as appropriate pending reevaluation and review of above. Left Finger-Thumb Pain Score (Numeric/FACES): 8 - Related Data Allergies Allergy/AdvReac Type Severity Reaction Status Date / Time No Known Allergies Allergy Verified 08/12/21 19:19 Home Meds: Home Meds Multivitamin [Multi-Vitamin Daily] 1 tab PO DAILY 07/27/14 [History] Omeprazole [Prilosec] 40 tab PO BRK 07/27/14 [History] Venlafaxine [Effexor XR] 150 mg PO DAILY 07/27/14 [History] Melatonin 10 mg PO BEDTIME 02/08/20 [History] Apixaban [Eliquis] 5 mg PO BID 06/16/21 [History] Amiodarone [Cordarone] 200 mg PO BID tablet 06/19/21 [Rx] Diltiazem HCl [Diltiazem 24Hr Cd] 240 mg PO DAILY #30 cap.er.24h 06/19/21 [Rx] Metoprolol Succinate [Toprol XL] 75 mg PO BID tab.er 06/19/21 [Rx] Past Medical History Cardiovascular History: Reports: Afib, Hypertension, Other (See Below) Other Cardiovascular History: CHF Respiratory History: Reports: Sleep Apnea Gastrointestinal History: Reports: GERD SET ILLUSTRATOR History: Reports: , Other (See Below) Other SET ILLUSTRATOR History: Hysterectomy Psychiatric History: Reports: Anxiety, Depression Endocrine/Metabolic History: Reports: Obesity/BMI 30+ Oncologic (Cancer) History: Reports: Other (See Below) Other Oncologic History: skin - Infectious Disease History Infectious Disease History: Reports: Chicken Pox - Past Surgical History HEENT Surgical History: Reports: Other (See Below) Other HEENT Surgeries/Procedures: wisdom teeth removed Cardiovascular Surgical History: Reports: Cardiac Ablation Other Cardiovascular Surgeries/Procedures: ablation 2019 Respiratory Surgical History: Reports: None GI Surgical History: Reports: None Female Surgical History: Reports: Breast Biopsy, Hysterectomy Musculoskeletal Surgical History: Reports: Other (See Below) Other Musculoskeletal Surgeries/Procedures:: L bunion repair Other Oncologic Surgeries/Procedures: surgery on the affected skin area Social & Family History - Family History Family Medical History: No Pertinent Family History - Tobacco Use Tobacco Use Status *Q: Former Tobacco User Used Tobacco, but Quit: No Second Hand Smoke Exposure: No - Caffeine Use Caffeine Use: Reports: None Other Caffeine Use: caffeine free - Recreational Drug Use Recreational Drug Use: No ED ROS GENERAL - Review of Systems Review Of Systems: Comprehensive ROS is negative, except as noted in HPI. ED EXAM, SKIN/RASH Exam: See Below Text/Narrative:: My physical exam is in the HPI ED SKIN PROCEDURES - Laceration/Wound Repair Left Hand Appearance: Subcutaneous Distal NVT: Neuro & Vascular Intact Anesthetic Type: Local Local Anesthesia - Lidocaine (Xylocaine): 1% Plain Local Anesthetic Volume: 3cc Skin Prep: Providone-Iodine (Betadine), Saline Saline Irrigation (cc's): 250 Exploration/Debridement/Repair: In a Bloodless Field Closed with: Sutures Lac/Wound length In cm: 0.8 Suture Size: 5-0 # of Sutures: 3 Suture Type: Nylon Progress/Comments: The patient has 2 lacerations on the volar fingers and those were closed with a total of 3 simple interrupted nylon sutures. The thumb has a soft tissue avulsion 1/2 x 1 cm and that is going to heal by secondary intent some nonadherent dressing and pressure dressing applied Course - Vital Signs Last Recorded V/S: Last Vital Signs Temp 36.4 C 08/12/21 19:16 Pulse 67 08/12/21 19:16 Resp 20 08/12/21 19:16 BP 124/62 08/12/21 19:16 Pulse Ox 96 08/12/21 19:16 - Orders/Labs/Meds Orders: Active Orders 24 hr Category Date Time Status Vaccine to be Administered/Admin Charge [RC] ASDIRECTED Care 08/12/21 23:15 Active Meds: Medications Discontinued Medications Generic Name Dose Route Start Last Admin Trade Name Babs PRN Reason Stop Dose Admin Bacitracin 1 dose 08/12/21 20:04 08/12/21 23:05 Bacitracin Oint 1 Gm U/D Packet TOP 08/12/21 20:05 1 dose ONETIME ONE Administration Bacitracin Confirm 08/12/21 23:01 08/12/21 23:04 Bacitracin Oint 1 Gm U/D Packet Administered 08/12/21 23:02 Not Given Dose 1 dose .ROUTE .STK-MED ONE Diphtheria/Tetanus/Acell Pertussis 0.5 ml 08/12/21 23:15 08/12/21 23:25 Diphtheria,Pertussis(Acell),Tetanus Vaccine 0.5 Ml Syringe IM 08/12/21 23:16 0.5 ml .ONCE ONE Administration Lidocaine HCl 2 ml 08/12/21 20:04 08/12/21 23:02 Lidocaine 1% Pf 2 Ml Sdv INJECT 08/12/21 20:05 Not Given ONETIME ONE Lidocaine HCl Confirm 08/12/21 23:02 08/12/21 23:08 Lidocaine 1% 5 Ml Sdv Administered 08/12/21 23:03 Not Given Dose 5 ml .ROUTE .STK-MED ONE Lidocaine HCl 5 ml 08/12/21 23:03 08/12/21 23:09 Lidocaine 1% 5 Ml Sdv INJECT 08/12/21 23:04 5 ml ONETIME ONE Administration Lidocaine HCl 5 ml 08/12/21 23:03 08/12/21 23:09 Lidocaine 1% 5 Ml Sdv INJECT 08/12/21 23:04 Not Given ONETIME ONE Departure - Departure Time of Disposition: 23:46 Disposition: Home, Self-Care 01 Condition: Good Clinical Impression: Laceration of finger, Avulsion of skin of thumb - Discharge Information Instructions: Laceration Care, Adult, Skin Tear, [id number] Referrals: PCP,None [Primary Care Provider] - Forms: ED Department Discharge Additional Instructions: Sutures out in 7 to 10 days. The thumb needs to be dressed with a saline wet-to-dry dressing every day starting in 2 days but leave the nonadherent dressing the first 2 days because you are on a blood thinner and I want you to break off the clot. Recheck surgical clinic in 2 days [facility] - General Surgery Professional [address], [address] [place] [address] The following information is given to patients seen in the emergency department who are being discharged to home. This information is to outline your options for follow-up care. We provide all patients seen in our emergency department with a follow-up referral. The need for follow-up, as well as the timing and circumstances, are variable depending upon the specifics of your emergency department visit. If you don't have a primary care physician on staff, we will provide you with a referral. We always advise you to contact your personal physician following an emergency department visit to inform them of the circumstance of the visit and for follow-up with them and/or the need for any referrals to a consulting specialist. The emergency department will also refer you to a specialist when appropriate. This referral assures that you have the opportunity for follow-up care with a specialist. All of these measure are taken in an effort to provide you with optimal care, which includes your follow-up. Under all circumstances we always encourage you to contact your private physician who remains a resource for coordinating your care. When calling for follow-up care, please make the office aware that this follow-up is from your recent emergency room visit. If for any reason you are refused follow-up, please contact the [facility] Emergency Department at and asked to speak to the emergency department charge nurse. Sepsis Event Note (ED) - Evaluation Sepsis Screening Result: No Definite Risk - Focused Exam Vital Signs: Vital Signs Temp Pulse Resp BP Pulse Ox 08/12/21 19:16 36.4 C 67 20 124/62 96 - My Orders Last 24 Hours: My Active Orders 08/12/21 23:15 Vaccine to be Administered/Admin Charge [RC] ASDIRECTED - Assessment/Plan Last 24 Hours: My Active Orders 08/12/21 23:15 Vaccine to be Administered/Admin Charge [RC] ASDIRECTED
[2021-08-13 00:03] VITALS: BP 134/76; PULSE 78
== END 2021-08-13 00:04 | disposition home or self-care (01) ==
LOC: MW.ED 18:11
DX: S61.412A Laceration without foreign body of left hand, initial encounter (principal); I48.91 Unspecified atrial fibrillation; I11.0 Hypertensive heart disease with heart failure; I50.9 Heart failure, unspecified; E66.9 Obesity, unspecified; Z68.42 Body mass index [BMI] 45.0-49.9, adult; Z23 Encounter for immunization; W26.8XXA Contact with other sharp object(s), not elsewhere classified, initial encounter; Z87.891 Personal history of nicotine dependence
CPT/HCPCS: 12001; 90471; 90715; 99282-25

== ENCOUNTER 2021-08-13 08:27 | Emergency (ER) | payer OTHER ==
--- NOTE | 2021-08-13 09:52 | EDM.PDOC ---
ED HPI GENERAL MEDICAL PROBLEM - General Chief Complaint: Upper Extremity Injury/Pain Stated Complaint: LT THUMB BLEEDING Time Seen by Provider: 08/13/21 09:01 Source of Information: Reports: Patient - History of Present Illness INITIAL COMMENTS - FREE TEXT/NARRATIVE: 56-year-old female presents to the emergency department complaining of bleeding to the thumb. Patient was here yesterday had sutures placed when she broke a dish and caused lacerations and the thumb was treated with a nonocclusive dressing in the setting of tissue avulsion. Patient is having some bleeding and told to return for significant bleeding and so she is here. left thumb Pain Score (Numeric/FACES): 2 - Related Data Allergies Allergy/AdvReac Type Severity Reaction Status Date / Time No Known Allergies Allergy Verified 08/13/21 09:43 Home Meds: Home Meds Multivitamin [Multi-Vitamin Daily] 1 tab PO DAILY 07/27/14 [History] Omeprazole [Prilosec] 40 tab PO BRK 07/27/14 [History] Venlafaxine [Effexor XR] 150 mg PO DAILY 07/27/14 [History] Melatonin 10 mg PO BEDTIME 02/08/20 [History] Apixaban [Eliquis] 5 mg PO BID 06/16/21 [History] Amiodarone [Cordarone] 200 mg PO BID tablet 06/19/21 [Rx] Diltiazem HCl [Diltiazem 24Hr Cd] 240 mg PO DAILY #30 cap.er.24h 06/19/21 [Rx] Metoprolol Succinate [Toprol XL] 75 mg PO BID tab.er 06/19/21 [Rx] Past Medical History Cardiovascular History: Reports: Afib, Hypertension, Other (See Below) Other Cardiovascular History: CHF Respiratory History: Reports: Sleep Apnea Gastrointestinal History: Reports: GERD EDITORIAL SPECIALIST History: Reports: , Other (See Below) Other EDITORIAL SPECIALIST History: Hysterectomy Psychiatric History: Reports: Anxiety, Depression Endocrine/Metabolic History: Reports: Obesity/BMI 30+ Oncologic (Cancer) History: Reports: Other (See Below) Other Oncologic History: skin - Infectious Disease History Infectious Disease History: Reports: Chicken Pox - Past Surgical History HEENT Surgical History: Reports: Other (See Below) Other HEENT Surgeries/Procedures: wisdom teeth removed Cardiovascular Surgical History: Reports: Cardiac Ablation Other Cardiovascular Surgeries/Procedures: ablation 2019 Respiratory Surgical History: Reports: None GI Surgical History: Reports: None Female Surgical History: Reports: Breast Biopsy, Hysterectomy Musculoskeletal Surgical History: Reports: Other (See Below) Other Musculoskeletal Surgeries/Procedures:: L bunion repair Other Oncologic Surgeries/Procedures: surgery on the affected skin area Social & Family History - Family History Family Medical History: No Pertinent Family History - Caffeine Use Caffeine Use: Reports: None Other Caffeine Use: caffeine free - Recreational Drug Use Recreational Drug Use: No Review of Systems - Review of Systems Review Of Systems: See Below Musculoskeletal: Reports: Hand Pain Skin: Reports: Other (Bleeding) Neurological: Reports: No Symptoms ED EXAM, GENERAL - Physical Exam Exam: See Below Free Text/Narrative:: CONSTITUTIONAL: well appearing in no acute distress SKIN: dry, and intact without rash HENT: Normocephalic, atraumatic, NECK: normal range of motion PULMONARY: normal chest rise and fall, no respiratory distress or stridor NEUROLOGIC: normal speech, moves all extremities, grossly non-focal MUSCULOSKELETAL: no gross deformities, atraumatic PSYCHIATRIC: normal mood and affect. Skin: Lacerations appear clean and dry and intact. There is some minor oozing at the part of the tissue avulsion but no significant bleeding. Course - Vital Signs Text/Narrative:: Patient presents with bleeding in the site of hand injury. X-rays negative for any acute fracture or foreign body. The wound was evaluated and there is no marked active bleeding. This was redressed and nonadherent dressing replaced. Supportive treatment return precautions and PCP follow-up for suture removal as discussed previously Last Recorded V/S: Last Vital Signs Temp 36.3 C 08/13/21 09:07 Pulse 69 08/13/21 09:07 Resp 14 08/13/21 09:07 BP 132/72 08/13/21 09:07 Pulse Ox 94 L 08/13/21 09:07 Departure - Departure Time of Disposition: 11:00 Disposition: Home, Self-Care 01 Condition: Good Clinical Impression: Visit for wound check - Discharge Information Referrals: PCP,None [Primary Care Provider] - Forms: ED Department Discharge Additional Instructions: Return for significant bleeding or change or worsening condition. Otherwise wound care and suture removal as per previous discharge instructions The following information is given to patients seen in the emergency department who are being discharged to home. This information is to outline your options for follow-up care. We provide all patients seen in our emergency department with a follow-up referral. The need for follow-up, as well as the timing and circumstances, are variable depending upon the specifics of your emergency department visit. If you don't have a primary care physician on staff, we will provide you with a referral. We always advise you to contact your personal physician following an emergency department visit to inform them of the circumstance of the visit and for follow-up with them and/or the need for any referrals to a consulting specialist. The emergency department will also refer you to a specialist when appropriate. This referral assures that you have the opportunity for follow-up care with a specialist. All of these measure are taken in an effort to provide you with optimal care, which includes your follow-up. Primary care clinics in the area: [facility] - Primary Care [address] [place] [address] [place] [phone] Under all circumstances we always encourage you to contact your private physician who remains a resource for coordinating your care. When calling for follow-up care, please make the office aware that this follow-up is from your recent emergency room visit. If for any reason you are refused follow-up, please contact the [facility] Emergency Department at and asked to speak to the emergency department charge nurse. Sepsis Event Note (ED) - Evaluation Sepsis Screening Result: No Definite Risk - Focused Exam Vital Signs: Vital Signs Temp Pulse Resp BP Pulse Ox 08/13/21 09:07 36.3 C 69 14 132/72 94 L
--- NOTE | 2021-08-13 10:08 | CR ---
Indication: Foreign body Comparison: None available. Technique: AP and lateral views left hand were obtained Findings: There is no displaced fracture or dislocation. The joint spaces are grossly preserved. There is soft tissue laceration of the 1st digit soft tissues without evidence of obvious radiopaque foreign body. Impression: Soft tissue laceration of the 1st digit without definite radiopaque foreign body or underlying bony involvement. Dictated by Eric Helton MD @ 08/13/2021 10:06:17 AM (Electronically Signed)
[2021-08-13 11:23] VITALS: BP 102/65; PULSE 59
== END 2021-08-13 11:26 | disposition home or self-care (01) ==
LOC: MW.ED 08:27
DX: Z48.817 Encounter for surgical aftercare following surgery on the skin and subcutaneous tissue (principal); I48.91 Unspecified atrial fibrillation; I11.0 Hypertensive heart disease with heart failure; I50.9 Heart failure, unspecified; E66.9 Obesity, unspecified; Z68.42 Body mass index [BMI] 45.0-49.9, adult; Z79.899 Other long term (current) drug therapy; Z79.01 Long term (current) use of anticoagulants
CPT/HCPCS: 73120-26-LT; 73120-LT; 99283-25

== ENCOUNTER 2021-08-15 11:55 | Day surgery (SDC) | payer OTHER ==
--- NOTE | 2021-08-15 12:58 | PCM.PREANE ---
Preanesthetic Assessment - Procedure Proposed Procedure: Laceration repair, Left Thumb - Anesthesia/Transfusion/Family Hx Anesthesia History: Prior Anesthesia Without Reaction Other Type of Anesthesia Reaction Comment: Hx: motion sickness, denies any prob lems in past with anesthesia Family History of Anesthesia Reaction: No Transfusion History: No Prior Transfusion(s) - Review of Systems General: No Symptoms Pulmonary: No Symptoms Cardiovascular: No Symptoms (H/o Afib s/p ablation x2, HTN) Gastrointestinal: No Symptoms (GERD well controlled) Neurological: No Symptoms Other: Reports: None - Physical Assessment NPO Status Date: 08/14/21 NPO Status Time: 19:30 Vital Signs: Last Vital Signs Temp 97.7 F 08/15/21 12:09 Pulse 68 08/15/21 12:09 Resp 16 08/15/21 12:09 BP 130/79 08/15/21 12:09 Pulse Ox 95 08/15/21 12:09 Height: 5 ft 9 in Weight: 152.861 kg (MORBID OBESITY) ASA Class: 3 Mental Status: Alert & Oriented x3 Airway Class: Mallampati = 3 Dentition: Reports: Normal Dentition Thyro-Mental Finger Breadths: 3 Mouth Opening Finger Breadths: 3 ROM/Head Extension: Full Lungs: Clear to Auscultation, Normal Respiratory Effort Cardiovascular: Regular Rate, Regular Rhythm (Pt is in regular rhythm at this time) - Allergies Allergies/Adverse Reactions: Allergies Allergy/AdvReac Type Severity Reaction Status Date / Time No Known Allergies Allergy Verified 08/14/21 14:19 - Acknowledgements Anesthesia Type Planned: MAC Pt an Appropriate Candidate for the Planned Anesthesia: Yes Alternatives and Risks of Anesthesia Discussed w Pt/Guardian: Yes Pt/Guardian Understands and Agrees with Anesthesia Plan: Yes PreAnesthesia Questionnaire HEENT History: Reports: Allergic Rhinitis Cardiovascular History: Reports: Afib, Hypertension, Other (See Below) Other Cardiovascular History: CHF Respiratory History: Reports: Sleep Apnea Other Respiratory History: uses CPAP Gastrointestinal History: Reports: GERD Genitourinary History: Reports: None 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: Reports: Endometriosis, , Other (See Below) Other OB/BYN History: complete Hysterectomy Musculoskeletal History: Reports: None Neurological History: Reports: None Psychiatric History: Reports: Anxiety, Depression Endocrine/Metabolic History: Reports: Obesity/BMI 30+ Other Endocrine/Metabolic History: prediabetic Hematologic History: Reports: None Immunologic History: Reports: None Oncologic (Cancer) History: Reports: Basal Cell Carcinoma Dermatologic History: Reports: None - Infectious Disease History Infectious Disease History: Reports: Chicken Pox - Past Surgical History Head Surgeries/Procedures: Reports: None HEENT Surgical History: Reports: Oral Surgery, Other (See Below) Other HEENT Surgeries/Procedures: wisdom teeth removed Cardiovascular Surgical History: Reports: Cardiac Ablation Other Cardiovascular Surgeries/Procedures: cardiac ablation x2 Respiratory Surgical History: Reports: None GI Surgical History: Reports: Colonoscopy Female Surgical History: Reports: Breast Biopsy, Hysterectomy, Salpingo- Oophorectomy Endocrine Surgical History: Reports: None Neurological Surgical History: Reports: None Musculoskeletal Surgical History: Reports: Other (See Below) Other Musculoskeletal Surgeries/Procedures:: L bunionectomy Oncologic Surgical History: Reports: Other (See Below) Other Oncologic Surgeries/Procedures: MOHS procedure Dermatological Surgical History: Reports: Skin Biopsy, Other (See Below) - SUBSTANCE USE Tobacco Use Status *Q: Never Tobacco User - HOME MEDS Home Medications: Home Meds Multivitamin [Multi-Vitamin Daily] 1 tab PO DAILY 07/27/14 [History] Omeprazole [Prilosec] 40 tab PO BRK 07/27/14 [History] Venlafaxine [Effexor XR] 150 mg PO DAILY 07/27/14 [History] Melatonin 10 mg PO BEDTIME 02/08/20 [History] Apixaban [Eliquis] 5 mg PO BID 06/16/21 [History] Amiodarone [Cordarone] 200 mg PO BID tablet 06/19/21 [Rx] Diltiazem HCl [Diltiazem 24Hr Cd] 240 mg PO DAILY #30 cap.er.24h 06/19/21 [Rx] Metoprolol Succinate [Toprol XL] 75 mg PO BID tab.er 06/19/21 [Rx]
[2021-08-15] MEDS ORDERED: Propofol 200 MG/20 ML SDV ONE ×3 (13:36→14:06)
[2021-08-15] MEDS ORDERED: fentaNYL 100 MCG/2 ML SDV ONE (13:36)
[2021-08-15] MEDS ORDERED: Bupivacaine 0.5% 10 ML SDV ONE (13:52)
--- NOTE | 2021-08-15 14:41 | PCM.POSTAN ---
POST ANESTHESIA ASSESSMENT - MENTAL STATUS Mental Status: Alert, Oriented - VITAL SIGNS Vital Signs: Last Vital Signs Temp 97.7 F 08/15/21 12:09 Pulse 68 08/15/21 12:09 Resp 16 08/15/21 12:09 BP 130/79 08/15/21 12:09 Pulse Ox 95 08/15/21 12:09 - RESPIRATORY Respiratory Status: Respiratory Rate WNL, Airway Patent, O2 Saturation Stable, Supplemental Oxygen - CARDIOVASCULAR CV Status: Pulse Rate WNL, Blood Pressure Stable - GASTROINTESTINAL GI Status: No Symptoms - POST OP HYDRATION Hydration Status: Adequate & Stable
--- NOTE | 2021-08-15 14:43 | PCM.OPNOTE ---
- General Post-Op/Procedure Note Date of Surgery/Procedure: 08/15/21 Operative Procedure(s): Left thumb laceration repair Findings: 2cm x 1cm semi circular laceration on pad of left thumb. Pre Op Diagnosis: Left thumb laceration Post-Op Diagnosis: same Anesthesia Technique: Local, MAC Primary Surgeon: Flor Zelaya Fluid Replacement, Intraop: 650 EBL in mLs: 2 Condition: Good
--- NOTE | 2021-08-15 14:59 | PCM48HPAN ---
Post Anesthesia Note - EVALUATION WITHIN 48HRS OF ANESTHETIC Vital Signs in Normal Range: Yes Patient Participated in Evaluation: Yes Respiratory Function Stable: Yes Airway Patent: Yes Cardiovascular Function Stable: Yes Hydration Status Stable: Yes Pain Control Satisfactory: Yes Nausea and Vomiting Control Satisfactory: Yes Mental Status Recovered: Yes Vital Signs: Last Vital Signs Temp 97.2 F 08/15/21 14:33 Pulse 64 08/15/21 14:48 Resp 16 08/15/21 14:48 BP 132/86 08/15/21 14:48 Pulse Ox 95 08/15/21 14:48
[2021-08-15 15:58] VITALS: BP 142/80; PULSE 68
--- NOTE | 2021-08-16 19:43 | OR ---
SURGEON: FLOR ZELAYA MD DATE OF PROCEDURE: 08/15/2021 PREOPERATIVE DIAGNOSIS: Left thumb laceration. POSTOPERATIVE DIAGNOSIS: Left thumb laceration. PROCEDURE PERFORMED: Left thumb laceration repair. PRIMARY SURGEON: Flor Zelaya MD ANESTHESIA: MAC, local. FLUIDS: 650 mL. ESTIMATED BLOOD LOSS: 2 mL. FINDINGS: 2 x 1 cm left thumb defect. The wound was superficial. COMPLICATIONS: None. INDICATIONS: The patient is a 56-year-old female who fell recently. She was holding a bowl in her hands. It shattered and cut three fingers on her left hand. She was seen in the emergency room and had two of the smaller lacerations repaired, but it was felt that the laceration on her thumb was too large to repair. She was referred to my office. The patient is on blood thinners for atrial fibrillation. She has continued to bleed through this laceration and has had to have multiple dressing changes. When I saw her in clinic, the wound was too complex to repair at bedside and I was in need of cautery. The patient was consented for a laceration repair in the operating room. I explained the procedure, expected perioperative course, and the risks. The patient verbalized understanding and wishes to proceed. PROCEDURE IN DETAIL: The patient was brought in to the OR and placed on the OR table in supine position. A time-out was completed verifying the patient's name, age, date of , allergies, and procedure to be performed. Monitored anesthesia care was induced. The patient's left hand was placed on a hand table and was prepped and draped in usual standard fashion. At the start of the case, I measured the wound. It measured 2 cm x 1 cm in size. I copiously irrigated the wound with normal saline and used gentle debridement with a Ray-Wes sponge. Once I was ensured that the wound was clean, I anesthetized it with 0.5% Marcaine plain. The wound edges were then brought together using a combination of both horizontal mattress sutures and interrupted sutures. I used 3-0 Ethilon suture. I was able to bring the wound together without undue tension. The wound was then washed and irrigated again. Minimal cautery was needed to achieve hemostasis. The wound was then dressed with bacitracin, petroleum gauze, Lamonte wrap, and an Roger bandage. She tolerated the procedure well, was awoken, and taken to the PACU in stable condition. COLLINS HOPKINS /[id number]
== END 2021-08-15 16:01 | disposition home or self-care (01) ==
LOC: MW.SDS 11:55
PROVIDERS: ATTEND Surgery
DX: S61.012A Laceration without foreign body of left thumb without damage to nail, initial encounter (principal); I48.91 Unspecified atrial fibrillation; K21.9 Gastro-esophageal reflux disease without esophagitis; E66.9 Obesity, unspecified; R73.03 Prediabetes; F32.A Depression, unspecified; F41.9 Anxiety disorder, unspecified; G47.30 Sleep apnea, unspecified; I50.9 Heart failure, unspecified; I11.0 Hypertensive heart disease with heart failure; Z79.01 Long term (current) use of anticoagulants; Z79.899 Other long term (current) drug therapy; Z98.890 Other specified postprocedural states; Z68.42 Body mass index [BMI] 45.0-49.9, adult
CPT/HCPCS: 12001; J0690; J2704; J3010; J3490; 00400

== ENCOUNTER 2022-04-06 11:39 | Emergency (ER) | payer OTHER ==
[2022-04-06] MEDS ORDERED: Sodium Chloride 0.9% 500 ML IV ONE ×2 (12:10→13:03)
[2022-04-06 12:48] LABS: CARBON DIOXIDE,CO2 33.5 mmol/L (21.0-32.0); POTASSIUM,K 2.7 mmol/L (3.5-5.1)
[2022-04-06] MEDS ORDERED: Potassium Chloride 10% 20 MEQ/15 ML Soln 30 ML UD Cup PO ONE (13:04)
[2022-04-06] MEDS ORDERED: Potassium Chloride 20 MEQ in Premix Bag 1 BAG IV ONE (13:04)
[2022-04-06] MEDS ORDERED: NS + KCl 20mEq/L 1,000 ML IV ONE (13:30)
[2022-04-06 16:18] VITALS: BP 143/68; PULSE 54
== END 2022-04-06 16:33 | disposition home or self-care (01) ==
LOC: MW.ED 11:39
DX: E87.6 Hypokalemia (principal); E86.0 Dehydration; K21.9 Gastro-esophageal reflux disease without esophagitis; I11.0 Hypertensive heart disease with heart failure; I50.9 Heart failure, unspecified; E66.9 Obesity, unspecified; Z79.899 Other long term (current) drug therapy
CPT/HCPCS: 36415; 80053; 83735; 85025; 93005; 96361; 96365; 96366; 99285; A9270; J3480; J7030

== ENCOUNTER 2023-07-05 14:52 | Emergency (ER) | payer OTHER ==
[2023-07-05] MEDS ORDERED: Sodium Chloride 0.9% 10 ML Syringe FLUSH PRN (15:07)
[2023-07-05] MEDS ORDERED: Sodium Chloride 0.9% 2.5 ML Syringe FLUSH PRN (15:07)
[2023-07-05 15:14] LABS: BASOPHILS PERCENT AUTO 0.3 % (0.0-1.5); EOSINOPHILS ABSOLUTE AUTO 0.2 K/uL (0.0-0.7); EOSINOPHILS PERCENT AUTO 1.8 % (0.0-7.0); HEMOGLOBIN 14.8 g/dL (12.0-16.0); LYMPHOCYTES PERCENT AUTO 21.7 % (16.0-40.0); MEAN CORPUSCULAR HEMOGLOBIN 29.2 pg (27.0-32.0); MEAN CORPUSCULAR HGB CONC 33.6 g/dL (31.0-37.0); MEAN CORPUSCULAR VOLUME 86.8 fL (80.0-98.0); MONOCYTES ABSOLUTE AUTO 0.6 K/uL (0.0-0.8); MONOCYTES PERCENT AUTO 6.5 % (0.0-15.0); NEUTROPHILS ABSOLUTE AUTO 6.5 K/uL (1.4-5.7); NEUTROPHILS PERCENT AUTO 69.7 % (48.0-80.0); NRBC ABSOLUTE 0 K/uL; PLATELET COUNT,PLT 374 K/uL (150-400); RED BLOOD CELL COUNT 5.07 M/uL (4.30-5.90); WHITE BLOOD CELL COUNT,WBC 9.27 K/uL (4.0-11.0)
[2023-07-05 15:39] LABS: ALANINE AMINOTRANSFERASE,ALT 25 IU/L (14-63); ALKALINE PHOSPHATASE 120 U/L (46-116); ASPARTATE AMNIOTRANSFERASE,AST 16 IU/L (15-37); BILIRUBIN TOTAL 0.3 mg/dL (0.2-1.0); BLOOD UREA NITROGEN,BUN 17 mg/dL (7.0-18.0); CALCIUM 9.5 mg/dL (8.5-10.1); CARBON DIOXIDE,CO2 23.8 mmol/L (21.0-32.0); CHLORIDE,CL 103 mmol/L (98-107); CREATININE 1.4 mg/dL (0.6-1.0); EST CRCL DRUG DOSING (CG) 45.22 mL/min; GLUCOSE RANDOM 170 mg/dL (74-106); LIPASE 29 U/L (16-77); POTASSIUM,K 4.1 mmol/L (3.5-5.1); PROTEIN TOTAL,TP 8.2 g/dL (6.4-8.2); SODIUM,NA 139 mmol/L (136-145)
[2023-07-05 15:46] LABS: ESTIMATED GFR 43 mL/min (>60)
[2023-07-05] MEDS ORDERED: Sodium Chloride 0.9% 1,000 ML IV ONE (16:22)
[2023-07-05] MEDS ORDERED: Albuterol/Ipratropium 3.0-0.5 MG/3 ML Neb Soln NEB ONE (16:25)
[2023-07-05 19:02] VITALS: BP 136/98; PULSE 107
== END 2023-07-05 19:02 | disposition home or self-care (01) ==
LOC: MW.ED 14:52
DX: I48.11 Longstanding persistent atrial fibrillation (principal); I11.0 Hypertensive heart disease with heart failure; I50.9 Heart failure, unspecified; E66.9 Obesity, unspecified; Z68.42 Body mass index [BMI] 45.0-49.9, adult; Z79.899 Other long term (current) drug therapy; Z86.16 Personal history of COVID-19; Z90.710 Acquired absence of both cervix and uterus; Z20.822 Contact with and (suspected) exposure to COVID-19
CPT/HCPCS: 36415; 71045; 80053; 83690; 83735; 83880; 84443; 84484; 85025; 85379; 87635; 93005; 96360; 99285; J3490; J7030; 93010; 99283; J7620-GY; U0002

== ENCOUNTER 2023-07-09 11:33 | Observation (INO) | payer OTHER ==
[2023-07-09] MEDS ORDERED: propofoL 0 ML ONE (12:02)
[2023-07-09] MEDS ORDERED: Propofol 200 MG/20 ML SDV ONE (12:09)
[2023-07-09] MEDS ORDERED: Lidocaine 2% 5 ML SDV ONE ×2 (12:09→12:10)
[2023-07-09] MEDS ORDERED: Lactated Ringers 1,000 ML IV SCH (14:00)
[2023-07-09 15:26] VITALS: BP 123/63; PULSE 68
== END 2023-07-09 15:34 | disposition home or self-care (01) ==
LOC: MW.ICU 11:33 → INTOOBSV 11:33
PROVIDERS: ADMIT Internal Medicine; ATTEND Internal Medicine
DX: I48.19 Other persistent atrial fibrillation (principal); I11.0 Hypertensive heart disease with heart failure; I50.9 Heart failure, unspecified; G47.30 Sleep apnea, unspecified; K21.9 Gastro-esophageal reflux disease without esophagitis; F41.9 Anxiety disorder, unspecified; F32.A Depression, unspecified; E66.9 Obesity, unspecified; Z79.899 Other long term (current) drug therapy
CPT/HCPCS: 93005; J2704; J7120; 00410; 92960; J3490

== ENCOUNTER 2023-09-17 08:52 | Inpatient (IN) | payer OTHER ==
[2023-09-17] MEDS ORDERED: Sodium Chloride 0.9% 1,000 ML IV ONE (09:07)
[2023-09-17 09:20] LABS: BASOPHILS ABSOLUTE AUTO 0.03 K/uL (0.00-0.20); BASOPHILS PERCENT AUTO 0.4 % (0.0-1.0); EOSINOPHILS ABSOLUTE AUTO 0.18 K/uL (0.00-0.45); EOSINOPHILS PERCENT AUTO 2.5 % (0.0-6.0); HEMATOCRIT 42.6 % (37.0-47.0); HEMOGLOBIN 14.6 g/dL (12.0-16.0); IMMATURE GRAN ABSOLUTE AUTO 0.03 K/uL (0.00-0.05); IMMATURE GRAN PERCENT AUTO 0.4 % (0.0-0.4); LYMPHOCYTES ABSOLUTE AUTO 1.25 K/uL (1.00-4.80); LYMPHOCYTES PERCENT AUTO 17.6 % (24.0-44.0); MEAN CORPUSCULAR HEMOGLOBIN 29.2 pg (28.0-32.0); MEAN CORPUSCULAR HGB CONC 34.3 g/dL (32.0-36.0); MEAN CORPUSCULAR VOLUME 85.2 fL (83.0-99.0); MEAN PLATELET VOLUME 10.3 fL (9.4-12.3); MONOCYTES PERCENT AUTO 5.6 % (0.0-8.0); NEUTROPHILS ABSOLUTE AUTO 5.22 K/uL (1.80-7.70); NEUTROPHILS PERCENT AUTO 73.5 % (41.0-71.0); PLATELET COUNT,PLT 294 K/uL (150-400); WHITE BLOOD CELL COUNT,WBC 7.11 K/uL (3.9-11.3)
[2023-09-17] MEDS ORDERED: Metoprolol Tartrate 5 MG/5 ML SDV IVPUSH ONE (09:33)
[2023-09-17 09:43] LABS: D-DIMER QUANTITATIVE 0.55 mg/L FEU (0.00-0.50); INR 1.06 (0.86-1.11); PTT,PARTIAL THROMBOPLSTIN TIME 31.2 SEC (23.9-30.7)
[2023-09-17 10:00] LABS: A/G RATIO 0.9 (0.9-1.6); ALBUMIN 3.8 g/dL (3.4-5.0); BILIRUBIN TOTAL 0.3 mg/dL (0.2-1.0); CALCIUM 9.5 mg/dL (8.5-10.1); CREATININE 1.4 mg/dL (0.6-1.0); EST CRCL DRUG DOSING (CG) 45.22 mL/min; MAGNESIUM 1.9 mg/dL (1.8-2.4); POTASSIUM,K 3.7 mmol/L (3.5-5.1); PROTEIN TOTAL,TP 7.9 g/dL (6.4-8.2); TSH ULTRASENSITIVE 1.21 uIU/mL (0.36-3.74)
[2023-09-17 10:10] LABS: CORONAVIRUS COVID-19 NAA NEGATIVE (NEGATIVE); INFLUENZA A NAA NEGATIVE (NEGATIVE); INFLUENZA B NAA NEGATIVE (NEGATIVE)
[2023-09-17] MEDS ORDERED: Iopamidol 755 MG/ML 500 ML Multipack Bottle IVPUSH STA (10:40)
[2023-09-17] MEDS ORDERED: Sodium Chloride 0.9% 10 ML Syringe FLUSH PRN (13:15)
[2023-09-17] MEDS ORDERED: Acetaminophen 325 MG Tab PO PRN (13:15)
[2023-09-17] MEDS ORDERED: Sodium Chloride 0.9% 2.5 ML Syringe FLUSH PRN (13:15)
[2023-09-17] MEDS ORDERED: Ondansetron 4 MG/2 ML SDV IVPUSH PRN (13:15)
[2023-09-17] MEDS ORDERED: Docusate Sodium 100 MG Cap PO PRN (13:15)
[2023-09-17] MEDS ORDERED: Potassium Chloride 20 MEQ Tab.ER PO ONE (14:36)
[2023-09-17] MEDS ORDERED: Magnesium Oxide 400 MG Tab PO ONE (14:37)
[2023-09-17] MEDS: Apixaban 5 MG Tab PO SCH (20:27)
[2023-09-17] MEDS: Metoprolol Succinate 25 MG Tab.ER PO SCH (20:27)
[2023-09-18 06:38] LABS: BASOPHILS ABSOLUTE AUTO 0.03 K/uL (0.00-0.20); BASOPHILS PERCENT AUTO 0.5 % (0.0-1.0); EOSINOPHILS ABSOLUTE AUTO 0.19 K/uL (0.00-0.45); EOSINOPHILS PERCENT AUTO 3.1 % (0.0-6.0); HEMATOCRIT 40.1 % (37.0-47.0); HEMOGLOBIN 13.3 g/dL (12.0-16.0); IMMATURE GRAN ABSOLUTE AUTO 0.02 K/uL (0.00-0.05); IMMATURE GRAN PERCENT AUTO 0.3 % (0.0-0.4); LYMPHOCYTES ABSOLUTE AUTO 1.37 K/uL (1.00-4.80); LYMPHOCYTES PERCENT AUTO 22.3 % (24.0-44.0); MEAN CORPUSCULAR HEMOGLOBIN 28.4 pg (28.0-32.0); MEAN CORPUSCULAR HGB CONC 33.2 g/dL (32.0-36.0); MEAN CORPUSCULAR VOLUME 85.7 fL (83.0-99.0); MEAN PLATELET VOLUME 10.8 fL (9.4-12.3); MONOCYTES ABSOLUTE AUTO 0.54 K/uL (0.00-0.80); MONOCYTES PERCENT AUTO 8.8 % (0.0-8.0); PLATELET COUNT,PLT 221 K/uL (150-400); RED BLOOD CELL COUNT 4.68 M/uL (4.10-5.30); WHITE BLOOD CELL COUNT,WBC 6.15 K/uL (3.9-11.3)
[2023-09-18 06:57] LABS: CALCIUM 9.2 mg/dL (8.5-10.1); CARBON DIOXIDE,CO2 26.9 mmol/L (21.0-32.0); EST CRCL DRUG DOSING (CG) 63.3 mL/min; MAGNESIUM 2.3 mg/dL (1.8-2.4); POTASSIUM,K 4.4 mmol/L (3.5-5.1)
[2023-09-18] MEDS ORDERED: Omeprazole 20 MG Cap.CR PO SCH (07:30)
[2023-09-18] MEDS: Metoprolol Succinate 25 MG Tab.ER PO SCH (08:28)
[2023-09-18] MEDS: Apixaban 5 MG Tab PO SCH (08:28)
[2023-09-18 08:32] VITALS: PULSE 111
[2023-09-18] MEDS ORDERED: Venlafaxine 75 MG Cap.ER PO SCH (09:00)
[2023-09-18] MEDS ORDERED: Diltiazem 120 MG Cap.CD PO SCH (09:00)
[2023-09-18] MEDS ORDERED: Loratadine 10 MG Tab PO SCH (09:00)
[2023-09-18] MEDS ORDERED: Multivitamin Tab PO SCH (09:00)
[2023-09-18] MEDS ORDERED: Furosemide 40 MG Tab PO SCH (09:00)
[2023-09-18] MEDS ORDERED: FLU (Flulaval Quad) 2023-24(6MOS UP)/PF 60 MCG/0.5 ML Syringe IM ONE ×2 (10:00→16:30)
[2023-09-18 16:03] VITALS: BP 124/82
[2023-09-18] MEDS ORDERED: Amiodarone 200 MG Tab PO SCH (16:15)
== END 2023-09-18 16:55 | disposition home or self-care (01) | DRG 309 ==
LOC: MW.ED 08:52 → OBSVTOIN 13:04 → MW.MS 13:04 → MW.ICU 15:28
PROVIDERS: ADMIT Family Medicine; ATTEND Family Medicine
DX: R06.02 Shortness of breath (principal); I48.11 Longstanding persistent atrial fibrillation; I50.9 Heart failure, unspecified; I50.30 Unspecified diastolic (congestive) heart failure; E66.9 Obesity, unspecified; Z68.42 Body mass index [BMI] 45.0-49.9, adult; I11.0 Hypertensive heart disease with heart failure; Z86.16 Personal history of COVID-19; E66.01 Morbid (severe) obesity due to excess calories; Z20.822 Contact with and (suspected) exposure to COVID-19; G47.33 Obstructive sleep apnea (adult) (pediatric); F32.A Depression, unspecified; F41.9 Anxiety disorder, unspecified; K21.9 Gastro-esophageal reflux disease without esophagitis; Z11.52 Encounter for screening for COVID-19; Z79.01 Long term (current) use of anticoagulants; Z79.899 Other long term (current) drug therapy; Z90.710 Acquired absence of both cervix and uterus; Z90.721 Acquired absence of ovaries, unilateral; Z98.890 Other specified postprocedural states
CPT/HCPCS: 0240U; 36415; 71045; 71275; 80048; 80053; 83735; 83880; 84443; 84484; 85025; 85379; 85610; 85730; 90686; 93005; 93010; 96361; 96374; 99222; 99238; 99284; 99285-25; A9270-GY; G0008; G0378; J0282; J3490; J7030; Q9967

== ENCOUNTER 2024-04-29 08:01 | Day surgery (SDC) | payer OTHER ==
[2024-04-29] MEDS: Lactated Ringers 1,000 ML IV SCH (08:34)
[2024-04-29] MEDS ORDERED: propofoL 50 ML ONE (08:35)
[2024-04-29] MEDS ORDERED: Ondansetron 4 MG/2 ML SDV ONE (08:35)
[2024-04-29] MEDS ORDERED: Magnesium Sulfate (4.06 MEQ/ML) 5 GM/10 ML SDV ONE (08:36)
[2024-04-29] MEDS ORDERED: Lactated Ringers 1,000 ML IV SCH (10:00)
[2024-04-29 10:13] VITALS: BP 120/65; PULSE 64
== END 2024-04-29 10:25 | disposition home or self-care (01) ==
LOC: MW.SDS 08:01
PROVIDERS: ATTEND Surgery
DX: K57.31 Diverticulosis of large intestine without perforation or abscess with bleeding (principal); F32.A Depression, unspecified; F41.9 Anxiety disorder, unspecified; K21.9 Gastro-esophageal reflux disease without esophagitis; I11.0 Hypertensive heart disease with heart failure; I50.30 Unspecified diastolic (congestive) heart failure; I48.91 Unspecified atrial fibrillation; Z79.01 Long term (current) use of anticoagulants; Z79.899 Other long term (current) drug therapy
CPT/HCPCS: 45378; J2405; J2704; J3475; J7120